=== PATIENT | female | born 1945 | race Caucasian/White ===

== ENCOUNTER → 2016-12-11 | Outpatient (CLI) | payer MEDICARE, MEDICAID ==
[~2016-12-11] MED LIST: ACETAMINOPHEN-H1 TA2 PO; ALBUTEROL-200 PUFFS/ IH; AMOXICOT500 MG PO; AUGMENTIN 875-1 EACH PO; BACTRIM DS 8001 TAB PO; CELEXA20 MG PO; CELEXA40 MG PO; DIAZEPAM10 M1 PO; DOXYCYCLINE HY100 M4 PO; FISH OIL1000 MG PO; HEALTH CARE AM600 MG PO; HYDROCODONE-APA1 TA1 PO; MEDROL 4MG. DOSE4 MG PO; PHENERGAN 25MG.25 M1 PO; PRILOSEC20 M1 PO; PROZAC40 M1 PO; RESTORIL 30MG C30 MG PO; ROBITUSSIN NIG118 ML PO; SYNTHROID 0.0.125 MG PO; TESSALON PERLE100 M1 PO; VALIUM 5MG TABLE5 MG PO; VICODIN 5/500 T1 TAB PO; ZOFRAN 8MG TABLE8 MG PO; ZOFRAN ODT4 MG PO
--- NOTE | 2016-12-18 09:46 | RADIOLOGY REPORT PS360 ---
DIG MAMM-DX UNI LT W/AVS W/CAD, US BREAST-LT COMPLETE W/AXILLA COMPARISON: 05/09/2016 mammogram, 1116 ultrasound INDICATION: Follow-up abnormal mammogram and ultrasound ORDERING PHYSICIAN: Leigh Ann Young MD PATIENT AGE: 71 years TECHNIQUE: Standard images performed spot compression views and left breast ultrasound FINDINGS: Mostly fatty replaced fibroglandular tissue. Benign-appearing nodular densities are present in the outer left breast unchanged. Postsurgical changes noted involving the medial aspect of the left breast inferiorly with a clip from the previous biopsy in this region. There is some increased density in this area consistent with scarring. No malignant appearing mass or malignant. Microcalcification is evident. Left breast ultrasound: There is a persistent 10 x 8 mm hyperechoic subcutaneous area in the left breast at 9:00 corresponding to the palpable abnormality and corresponding to the previously noted lesion. Previously the lesion measured 14 x 9 mm and contain a central area of decreased echogenicity. The decreased echogenicity is no longer apparent. There were benign findings noted on the pathology on the previous biopsy. IMPRESSION: Benign findings, no evidence of malignancy BI-RADS CATEGORY: 2_Benign RECOMMENDED FOLLOWUP: Routine screening mammogram. If the palpable nodule becomes more apparent then, further follow-up will be needed (A letter has been sent to the patient regarding results of the study.)
== END ==
LOC: RAD 15:03
DX: R92.8 Other abnormal and inconclusive findings on diagnostic imaging of breast (principal)
CPT/HCPCS: G0206-LT

== ENCOUNTER 2017-06-12 08:43 | Inpatient (IN) | payer MEDICARE, MEDICAID ==
[~2017-06-12] VITALS: Ht 152.4 cm; Wt 67.7 kg
[2017-06-12] VITALS (13 sets, daily range): BP systolic 111–144; BP diastolic 46–83
--- NOTE | 2017-06-12 09:29 | Emergency Room Report ---
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 N Clinical Suspician of Infection? N Mental Status: 1 - Regular (Normal Baseline) Sepsis Risk:Low Sepsis Risk Have you (or family members/close friends) recently traveled outside the [place]? N If Yes, where/when: Have you had exposure to infectious disease within the past month? N TB? Other? Specify: 71 years old white female status post appendectomy. She developed sudden onset abdominal pain at 7 PM last night followed by vomiting multiple times and arrived to the ED this morning. She continues to complain of pain and vomiting without diarrhea. She has no chest pain she has no palpitation no shortness of air. The vomitus is food. Source patient, RN notes reviewed, family Exam Limitations no limitations ALLERGIES Coded Allergies: No Known Allergies (12/19/15) Home Medications Active Scripts Albuterol (Albuterol-Hfa Inhaler) 2 PUFF IH QID #1 INH Prov: 10/31/16 Dextromethorphan Hb/Doxylamine (Robitussin Nighttime Cough Dm) 5 ML PO Q4H #240 ML Prov: 10/31/16 Benzonatate (Tessalon Perle) 100 MG PO TID #15 SGL Prov: 01/16/16 Reported Medications Levothyroxine Sodium (Synthroid 0.125MG) 0.1 MG PO DAILY Temazepam (Restoril 30MG) 30 MG PO QHS Fluoxetine HCl (Prozac) 40 MG PO DAILY Diazepam 10 MG PO TIDP PRN ANXIETY History Medical History General CAD? No Angina: No HI: No Hypertension? Yes Hyperlipidemia? Yes CHF? No DVT? No PE? No COPD? No Asthma? No Anemia? No GERD? No Gastric ulcers? No GI Bleed? No Hernia? No Thyroid Problems? Yes Hypothyroidism? Yes CVA? No Seizures? No Diabetes? No Renal Insuffiency? No End Stage Renal Disease? No UTI? No Stones? No BPH? No GB Disease: No Nephritic Syndrome? No Asplenia? No Hepatitis? No Sickle Cell Disease? No Arthritis? No Migraines? No Cataracts? No Glaucoma? No MRSA? No HIV? No TB? No Anxiety? Yes Depression? Yes Cancer? No Immunization Hx DT/Tetanus > 10 YRS Surgical Hx Previous Surgery?Y Tubal Ligation Appendix Social History Smoking Hx Smoker: Never Smoker Tobacco: No Alcohol Alcohol: No Review of Systems All Other Systems Reviewed and Negative Constitutional no symptoms reported Eyes no symptoms reported ENT no symptoms reported. Respiratory no symptoms reported Cardiovascular no symptoms reported Gastrointestinal see HPI, abdominal pain, vomiting Genitourinary no symptoms reported. Musculoskeletal no symptoms reported Skin no symptoms reported Psychiatric/Neurological no symptoms reported Physical Exam Vital Signs Vital Signs Date Time Temp Pulse Resp B/P Pulse O2 O2 Flow FiO2 Ox Delivery Rate 06/12 1053 97.6 120 18 177/56 99 06/12 0932 97.6 120 18 177/56 99 06/12 0905 97.6 120 18 144/83 99 - WBC >12,000 or <4,000 or 10% bands? 2 or more SIRS Criteria Met? B/P:144/83 MAP:103 Creatinine >2.0? UA output<0.5ml/kg/hr for 2 hrs? Platelet count >100,000? Lactate >2.0mmol/1? INR >1.2 or PTT > than 60 sec? Evidence of Organ Dysfunction? Provider documented clinical suspician of infection? N Sepsis Criteria Count: 1 Sepsis Risk: Low Sepsis Risk General Appearance normal appearance, WD/WN Eye Exam - bilateral eye normal exam, bilateral eye PERRL, bilateral eye EOMI Ear, Nose, Throat hearing grossly normal, normal ENT inspection Neck normal inspection, non-tender, supple, full range of motion Respiratory Status Yes: trachea midline, chest symmetrical, non tender chest. No: respiratory distress. Lung Sounds bilateral: normal breath sounds, lungs clear. Cardiovascular normal exam, regular rate/rhythm, no peripheral edema, no gallop, no JVD, no murmur, no rub, normal peripheral pulses Gastrointestinal soft, no guarding, no rebound, tenderness, soft obese diffusely tender abdomen with hyperactive bowel sounds. No organomegaly no pulsating mass. Good bilateral femoral pulses. No guarding no rigidity, no cross or rebound tenderness. 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 No Results/Orders Laboratory Tests 06/12/1730: Magnesium 1.8 06/12/1730: Sodium 141, Potassium 3.5, Chloride 100, Carbon Dioxide 29, BUN 17, Creatinine 1.0, Estimated Creat Clear 49 L, Estimated GFR (MDRD) 55 L, Glucose 248 H, Calcium 10.5 H, Total Bilirubin 0.4, AST 25, ALT 36, Alkaline Phosphatase 98, Total Protein 8.5 H, Albumin 4.4, Globulin 4.1 H, Albumin/Globulin Ratio 1.1, Amylase 30, Lipase 137, WBC 19.4 H, RBC 5.09, Hgb 16.1, Hct 47.3 H, MCV 92.8, RDW 12.2, Plt Count 431 H, MPV 7.4, Gran % 85.2 H, Gran # 16.6 H, Total Counted 100, Lymphocytes % 11.0, Monocytes % 2.6, Eosinophils % 0.9, Basophils % 0.3, Neutrophils 79 H, Band Neutrophils 3, Lymphocytes (Manual) 11, Lymphocytes # 2.1, Monocytes (Manual) 4, Monocytes # 0.5, Eosinophils # 0.2, Basophils # 0.1 , Metamyelocytes 1, Atypical Lymphocytes 2, Platelet Estimate NORMAL, PUBS MCHC 33.8, MCH 31.4 H Current Medication Orders Sig/Brunilda Start time Last Medication Dose Route Stop Time Status Admin Ertapenem 1 GM ONCE ONE 06/12 1115 AC Sodium Chloride 50 ML IV 06/12 1144 Ondansetron HCl 4 MG ONCE ONE 06/12 1045 DC 06/12 IV 06/12 1046 1000 Ondansetron HCl 0 .STK-MED ONE 06/12 917 DC .ROUTE Sodium Chloride 1,000 ML .STK-MED ONE 06/12 917 DC IV Ondansetron HCl 4 MG 06/12 915 CAN IV Sodium Chloride 10 ML PRN PRN 06/12 915 AC IV 06/13 912 Orders Procedure Date/time Status DIET-NOTHING BY MOUTH 06/12 L Active URINALYSIS/COMPLETE 06/12 1106 Active CULTURE, BLOOD 06/12 1103 Active LACTIC ACID 06/12 1103 Active DIFFERENTIAL-WBC 06/[address] ABD/PELVIS REQ 06/12 0927 Complete MAGNESIUM 06/12 0914 Complete IV SALINE LOCK 06/12 912 Active LIPASE 06/12 09 Complete CBC WITH AUTO DIFF 06/12 912 Complete CHEM 12 PROFILE 06/12 912 Complete AMYLASE 06/12 912 Complete Departure Departure Time of Disposition 1107 Disposition Still a Patient Clinical Impression Primary Impression: Small bowel obstruction Secondary Impressions: Leucocytosis Condition STABLE Referrals FRANK CROOKS,QASIM Voss Additional Instructions I discussed with the patient her findings of small bowel obstruction and need for admission, she was agreeable. is at work. I called and discussed with Dr. Middleton production miner surgeon who agreed to admit. He requested urinalysis and a nasogastric tube to be placed. The patient will be admitted under Dr. Middleton with medical consultation if needed. The patient was admitted in a stable condition. Discharge Counseling Counseled pt/family regarding diagnosis, test results, medications/RX, follow up needs ED Critical Care Critical Care No If Critical Care minutes are documented, the time involved in the performance of seperately reportable procedures was not counted toward critical care time documented. I directly delivered medical care to this critically ill and/or injured patient. Timely evaluation and treatment was necessary to address the significant organ system(s) dysfunction present in this patient. at 1104
[2017-06-12 09:40] LABS: LYMPH # 2.1 K/mm3 (0.7-4.5)
[2017-06-12 09:45] LABS: HEMOGLOBIN 16.1 g/dL (12.2-16.2)
[2017-06-12 10:03] LABS: NEUTROPHILS 79 % (42-76)
--- NOTE | 2017-06-12 10:42 | RADIOLOGY REPORT PS360 ---
CT ABD PELVIS W/O CONTRAST CLINICAL INDICATION: Nausea and vomiting with abdominal pain ABDOMINAL PAIN ORDERING PHYSICIAN: Brandon Santo MD PATIENT AGE: 71 years COMPARISON: None TECHNIQUE: Axial images obtained with sagittal and coronal reformats. PROCEDURE: Oral Contrast: None IV Contrast: None . FINDINGS: Lung bases are clear. There is a small hiatal hernia. The liver, gallbladder, spleen, adrenal glands, pancreas, kidneys, ureters, and urinary bladder have an unremarkable appearance. Mildly distended small bowel loops are present with air-fluid levels. The terminal ileum is not distended. Small bowel feces sign is present consistent delayed transit. A definite point of obstruction is not identified however is felt to be within the the distal one third of the ileum within the right lower quadrant. No free air evident. No evidence of appendicitis or diverticulitis. No pelvic mass. No acute bony anomalies. IMPRESSION: Small bowel obstruction. Transition point is not identified but may be in the distal one third of the ileum in the right lower quadrant.
--- NOTE | 2017-06-12 13:14 | HISTORY AND PHYSICAL REPORT ---
See Addendum History of Present Illness Chief Complaint: Abdominal pain and nausea History of Present Illness: This is a 71-year-old female who presented emergency department after developing severe abdominal pain at approximately 7 PM yesterday evening. Subsequently, she developed nausea with intermittent emesis. She states that she had a "normal bowel movement" yesterday afternoon prior to the onset of pain. She is uncertain with regard to flatus. No hematemesis. No definitive melena, but she does state that her last bowel movement was "a bit dark". No bright red blood per rectum. No unexplained weight loss. A CT scan in the emergency department revealed signs consistent with a likely partial small bowel obstruction. She was found to have a leukocytosis and an initial elevation of her lactate. She is now on the floor after nasogastric decompression and states that she "feels quite a bit better". She states that she is "still in pain, but it is not like before". Past Medical History Reports: hypertension. Surgical History Previous Surgery?Y Tubal Ligation Appendix Allergies Coded Allergies: No Known Allergies (12/19/15) Medications: Active Scripts Albuterol (Albuterol-Hfa Inhaler) 2 PUFF IH QID #1 INH Prov: 10/31/16 Dextromethorphan Hb/Doxylamine (Robitussin Nighttime Cough Dm) 5 ML PO Q4H #240 ML Prov: 10/31/16 Benzonatate (Tessalon Perle) 100 MG PO TID #15 SGL Prov: 01/16/16 Reported Medications Levothyroxine Sodium (Synthroid 0.125MG) 0.1 MG PO DAILY Temazepam (Restoril 30MG) 30 MG PO QHS Fluoxetine HCl (Prozac) 40 MG PO DAILY Diazepam 10 MG PO TIDP PRN ANXIETY Additional medical history: Hypothyroidism Family history Postive for: HTN. Smoking Hx Tobacco: No Smoker: Never Smoker Type: N/A Packs/day: N/A Are you/the child exposed to second-hand smoke: No Alcohol Alcohol: No Hx of Drug Use Drug Use? No Review of Systems Constitutional No: chills. Skin No: contusions, swelling. Immune/allergy No: anaphalaxis. Eyes No: discharge. ENT No: nose bleed. Respiratory No: pneumonia. Cardiovascular No: palpitations. GI Positive for: nausea, vomitting. No: dysphagia, hematemeis, hematochezia, rectal pain. (female) No: hematuria. Musculoskeletal No: myalgias. Heme No: petechia. Endocrine No: polydipsia. Neurological No: confusion. Psychiatric No: anxious. Physical Exam VS/I&O Vital Signs Date Time Temp Pulse Resp B/P Pulse O2 O2 Flow FiO2 Ox Delivery Rate 06/12 1144 97.6 86 18 161/73 99 06/12 1139 97.6 86 18 161/73 99 06/12 1134 18 06/12 1053 97.6 120 18 177/56 99 06/12 0932 97.6 120 18 177/56 99 06/12 0905 97.6 120 18 144/83 99 Exam General appearance no acute distress, alert, oriented Neck full ROM Respiratory no distress Cardiovascular regular rate and rhythm Abdomen no guarding, soft (mild to mod TTP throughout) Extremities moves all, no evidence of DVT, no clubbing Musculoskeletal full ROM Neurological CNII-XIII grossly intact, normal speech Psychiatric normal mood Skin no gross abnormalities Findings/Data CT scan reveals [id number] dilatation of small bowel with some distal decompression. Definitive transition not visualized. Dx/assessment/plan Problem List 1. Small bowel obstruction 2. Leucocytosis Code status: full code Discussed with: patient Plan: 1) nothing by mouth/IV fluids 2) repeat lactate as per protocol 3) repeat complete blood count 4) continue nasogastric decompression 5) young catheter with UA 6) small bowel follow-through 7) serial abdominal exams at 1314
[2017-06-12] MEDS ORDERED: TESSALON PERLE100 M1 PO (13:39)
[2017-06-12 13:50] LABS: URINE BILIRUBIN - DIPSTICK NEGATIVE (NEG); URINE BLOOD NEGATIVE (NEG)
[2017-06-12 14:03] LABS: URINE SQUAMOUS CELLS OCC #/hpf (0-5)
[2017-06-12 15:45] LABS: HEMOGLOBIN 15.5 g/dL (12.2-16.2); LYMPH # 1.3 K/mm3 (0.7-4.5); LYMPH % 5.6 % (10-50.0)
--- NOTE | 2017-06-12 19:16 | RADIOLOGY REPORT PS360 ---
SMALL BOWEL SERIES CLINICAL INDICATION: Small bowel obstruction SBO ORDERING PHYSICIAN: QASIM MARIE MD PATIENT AGE: 71 years COMPARISON: CT scan of the same day FINDINGS: Work Order Clerk exam shows mildly distended small bowel loops. Patient was given 2 cups of barium through the nasogastric tube is study is carried out to 1 hour and 45 minutes. During this time there was only mild filling of the proximal small bowel is slightly distended. There was a small hiatal hernia and mild amount GE reflux. Study was then discontinued as the patient's condition was deteriorating and was taken to surgery. IMPRESSION: Incomplete small bowel follow-through showing mild distention of the small bowel.
--- NOTE | 2017-06-12 19:35 | Operative Note ---
Surgeon/Diagnoses Surgeon/Supervisor [employer](s) Date of procedure: 06/12/17 Surgeon: MD Maxi Middleton Supervisor [employer](s): Dr. Escudero Diagnoses Pre-op diagnosis: Small bowel obstruction Leukocytosis Lactic acidosis Post-op diagnosis Same as preoperative diagnoses Procedure Procedure Procedure: Exploratory laparotomy with extensive lysis of adhesions and distal small bowel resection Indications: ANGELLA TELLEZ is a 71 year-old Female with a history of abdominal pain with nausea and vomiting. She had radiographic evidence of at least a partial small bowel obstruction. She initially improved with nasogastric decompression. Follow-up laboratory evaluation revealed worsening leukocytosis and worsening lactic acidosis. Repeat abdominal exam revealed increased pain and the decision was made to proceed emergently to the operating room for exploration. Findings: No sign of ischemia Dense adhesions throughout the small bowel with obvious distal obstruction Mesenteric defect after complex adhesio lysis requiring resection of 12cm of distal small bowel Procedure Description: After informed consent was obtained, the patient was taken to the operating room and placed in the supine position. General anesthesia was induced and her abdomen was prepped and draped in a sterile fashion. A midline laparotomy incision was made. The abdomen was entered. Combination of blunt dissection and sharp dissection was utilized to free multiple dense adhesions along the anterior abdominal wall. No sign of obvious ischemia was noted as the small bowel was carefully evaluated. Significant and dense adhesions throughout the abdominal cavity were noted. The adhesions were worse along the mid and distal small bowel. An obvious obstruction distally was noted. Inspissated food particles contributed to the obstruction. Once the mesial lysis was completed, a mesenteric rent along the distal small bowel was noted. Decision was made to resect this portion of small bowel. A window was made in the mesentery utilizing a Windy clamp. A REAGAN stapler was utilized to transect both proximally and distally. The intervening mesentery was taken down in a clamp/cut/tie method utilizing Vicryl ligation. The 2 ends of small bowel were then brought into side -to-side apposition and a REAGAN stapler was utilized to create a common otomy. The common otomy was closed with a TA stapler and imbrication with 3-0 Nurolon was completed. The mesenteric defect was reapproximated with running Vicryl suture. The abdominal cavity was thoroughly irrigated. No active bleeding or sign of injury was noted. Fascia was reapproximated with number 2 Novofil in a sterile dressing was applied after the skin was stapled. Anesthetic agents were reversed and she was extubated prior to transfer to recovery. EBL (ml): 250 Anesthesia: GETA Complications: No immediate Specimens: Distal small bowel Disposition Disposition: Stable to recovery from where she will be transferred back to the floor. at 1934
--- NOTE | 2017-06-12 19:44 | Anesthesia Record ---
Anesthesia Record Part I Total IV fluids: 3500 EBL (ml): 250 Urine Output: 100 B/P: 117/65 % SaO2: 99 Pulse: 83 Resps: 16 Temp: 97.7 Patient is: Drowsy, Nasal O2, Stable Stable to PACU at: 1930 at 1944
--- NOTE | 2017-06-12 19:45 | Anesthesia Record ---
Anesthesia Record Part II Discharge time: 1999 Destination: Second Floor PACU nurse assessment review? Yes Patient is: Stable Anesthesia complications? No at 1945
[2017-06-12 20:53] LABS: ABO BLOOD TYPE O; RH BLOOD TYPE POSITIVE
[2017-06-12 20:54] LABS: ANTIHUMAN GLOB CROSSMATCH COMPAT
[2017-06-12 20:55] LABS: ANTIHUMAN GLOB CROSSMATCH COMPAT
[2017-06-12 21:22] LABS: HEMOGLOBIN 13.2 g/dL (12.2-16.2)
[2017-06-13] VITALS (14 sets, daily range): BP systolic 104–141; BP diastolic 59–98
--- NOTE | 2017-06-13 07:16 | POST-OP PROGRESS NOTE ---
Post Op Subjective Data Patient is post-op day 1 Subjective data: The patient states that she is "sore from surgery". She states that she "still feels better than when (she) came in". Post op objective data Vitals,I&O,and Labs: Vital signs, intake and output,and available lab data for the last 24 hours is as noted below. Vital Signs Date Time Temp Pulse Resp B/P Pulse O2 O2 Flow FiO2 Ox Delivery Rate 06/13 0440 98.8 120 18 108/68 9 1 06/13 0240 97.4 100 18 124/74 96 1 06/13 0140 97.5 109 18 121/79 95 1 06/13 0040 97.5 105 16 141/78 97 1 06/12 2340 97.6 86 16 135/75 97 1.5 06/12 2240 98.1 91 20 129/69 100 1.5 06/12 2210 98.0 101 16 126/64 98 1.5 06/12 2140 97.3 82 20 129/67 98 2. 06/120 97.2 77 18 130/57 98 2 06/12 2055 97.5 77 16 121/51 98 2 06/128 24 06/120 97.5 65 16 111/66 99 2 06/123 123 24 127/97 97 06/12 2025 97.8 66 14 120/46 99 2 06/12 2022 96.8 70 16 128/53 100 2 06/12 2020 97.2 06/12 2010 96.8 69 16 128/53 99 2 06/12 2005 97.2 66 16 135/64 99 OXYGEN 06/12 2000 73 16 130/59 98 OXYGEN 06/12 1955 16 06/12 1950 76 16 125/77 97 OXYGEN 06/12 1944 97.7 83 117/65 99 14 1940 82 16 119/65 99 OXYGEN 06/12 1930 97.7 83 16 117/65 99 OXYGEN 06/12 1334 97.6 101 16 118/74 98 ROOM AIR 06/12 1315 86 06/12 1315 97.6 101 18 118/74 06/12 1315 99 ROOM AIR 06/12 1144 97.6 86 18 161/73 99 06/12 1139 97.6 86 18 161/73 99 06/12 1134 18 06/12 1053 97.6 120 18 177/56 99 06/12 0932 97.6 120 18 177/56 99 06/12 0905 97.6 120 18 144/83 99 06/12 1500 06/12 2300 06/13 0700 Intake Total 0 100 0 Output Total 400 225 Balance -400 -125 0 Intake, IV 100 Intake, Oral 0 0 Intake, Tube 0 0 Irrigant Output, 0 Emesis Output, 0 Estimated Blood Loss Output, Other 25 Output, Urine 400 200 Patient 62.256 kg 62.256 kg Weight Laboratory Tests Test Result Date Time Chemistry Sodium (mmoL/L) 141 06/12 0930 Potassium (mmoL/L) 3.5 06/12 0930 Chloride (mmoL/L) 100 06/12 0930 Carbon Dioxide (mmoL/L) 29 06/12 0930 BUN (mg/dL) 17 06/12 0930 Creatinine (mg/dL) 1.0 06/12 930 Estimated Creat Clear (ML/MIN) 49 06/12 09 Estimated GFR (MDRD) (ML/MIN) 55 06/12 0930 Glucose (mg/dL) 248 06/12 0930 Lactic Acid (MMOL/L) 4.8 06/12 1538 Calcium (mg/dL) 10.5 06/12 0930 Magnesium (mg/dL) 1.8 06/12 0930 Total Bilirubin (mg/dL) 0.4 06/12 0930 AST (U/L) 25 06/12 0930 ALT (U/L) 36 06/12 0930 Alkaline Phosphatase (U/L) 98 06/12 0930 Total Protein (gm/dL) 8.5 06/12 0930 Albumin (gm/dL) 4.4 06/12 0930 Globulin (gm/dL) 4.1 06/12 0930 Albumin/Globulin Ratio 1.1 06/12 0930 Amylase (U/L) 30 06/12 0930 Lipase (U/L) 137 06/12 0930 Hematology WBC (K/MM3) 23.7 06/12 153 RBC (M/mm3) 5.01 06/12 153 Hgb (g/dL) 13.2 06/12 2055 Hct (%) 39.8 06/12 2055 MCV (fl) 93.5 06/12 1538 RDW (%) 12.4 06/12 1538 Plt Count (K/mm3) 381 06/12 153 MPV (fl) 7.0 06/12 1538 Gran % (%) 88.7 06/12 1538 Gran # (K/mm3) 21.0 06/12 1538 Total Counted (#CELLS) 100 06/12 0930 Lymphocytes % (%) 5.6 06/12 1538 Monocytes % (%) 5.2 06/12 1538 Eosinophils % (%) 0.3 06/12 1538 Basophils % (%) 0.3 06/12 1538 Neutrophils (%) 79 06/12 0930 Band Neutrophils (%) 3 06/12 0930 Lymphocytes (Manual) (%) 11 06/12 0930 Lymphocytes # (K/mm3) 1.3 06/12 1538 Monocytes (Manual) (%) 4 06/12 0930 Monocytes # (K/mm3) 1.2 06/12 1538 Eosinophils # (K/mm3) 0.1 06/12 1538 Basophils # (K/MM3) 0.1 06/12 1538 Metamyelocytes (%) 1 06/12 0930 Atypical Lymphocytes (%) 2 06/12 0930 Platelet Estimate NORMAL 06/12 930 PUBS MCHC (g/dl) 33.1 06/12 1538 Immunology Antibody Screen NEGATIVE 06/12 1825 MCH (pg) 30.9 06/12 1538 Miscellaneous Miscellaneous Test POSITIVE 06/12 1825 Urines Urine Color YELLOW 06/12 1330 Urine Appearance CLOUDY 06/12 1330 Urine pH 7.0 06/12 1330 Ur Specific [place] 1.020 06/12 1330 Urine Protein (mg/dL) 1+ 06/12 1330 Urine Ketones (mg/dL) 1+ 06/12 1330 Urine Blood NEGATIVE 06/12 1330 Urine Nitrate NEGATIVE 06/12 1330 Urine Bilirubin NEGATIVE 06/12 1330 Urine Urobilinogen (E.U./dL) 1.0 06/12 1330 Ur Leukocyte Esterase NEGATIVE 06/12 1330 Urine RBC (rbc/hpf) NONE 06/12 1330 Urine WBC (wbc/hpf) OCC 06/12 1330 Ur Squamous Epith Cells (#/hpf) OCC 06/12 1330 Amorphous Sediment 2+ 06/12 1330 Urine Bacteria 2+ 06/12 1330 Urine Mucus 2+ 06/12 1330 Urine Glucose NEGATIVE 06/12 1330 Physical Exam VS/I&O Vital Signs Date Time Temp Pulse Resp B/P Pulse O2 O2 Flow FiO2 Ox Delivery Rate 06/13 0440 98.8 120 18 108/68 9 1 06/13 0240 97.4 100 18 124/74 96 1 06/13 0140 97.5 109 18 121/79 95 1 06/13 0040 97.5 105 16 141/78 97 1 06/12 2340 97.6 86 16 135/75 97 1.5 06/12 2240 98.1 91 20 129/69 100 1.5 06/12 2210 98.0 101 16 126/64 98 1.5 06/12 2140 97.3 82 20 129/67 98 2. 06/120 97.2 77 18 130/57 98 2 06/12 2055 97.5 77 16 121/51 98 2 06/128 24 06/12 2040 97.5 65 16 111/66 99 2 06/12 2033 123 24 127/97 97 06/12 2025 97.8 66 14 120/46 99 2 06/12 2022 96.8 70 16 128/53 100 2 06/12 2020 97.2 06/12 2010 96.8 69 16 128/53 99 2 06/12 2005 97.2 66 16 135/64 99 OXYGEN 06/12 2000 73 16 130/59 98 OXYGEN 06/12 1955 16 06/12 1950 76 16 125/77 97 OXYGEN 06/12 1944 97.7 83 117/65 99 06/12 1940 82 16 119/65 99 OXYGEN 06/12 1930 97.7 83 16 117/65 99 OXYGEN 06/12 1334 97.6 101 16 118/74 98 ROOM AIR 06/12 1315 86 06/12 1315 97.6 101 18 118/74 06/12 1315 99 ROOM AIR 06/12 1144 97.6 86 18 161/73 99 06/12 1139 97.6 86 18 161/73 99 06/12 1134 18 06/12 1053 97.6 120 18 177/56 99 06/12 0932 97.6 120 18 177/56 99 06/12 0905 97.6 120 18 144/83 99 I&O 06/13 0700 Intake Total 100 Output Total 625 Balance -525 Intake, IV 100 Intake, Oral 0 Intake, Tube 0 Irrigant Output, 0 Emesis Output, 0 Estimated Blood Loss Output, Other 25 Output, Urine 600 Patient 62.256 kg Weight Exam General appearance no acute distress Respiratory no distress Cardiovascular tachycardia Abdomen soft (dressing intact) Post op patient plan Diagnoses: SBO - stable s/p CHRISTY and SB resection Leukocytosis Lactic acidosis Plan: Ambulate, follow-up a.m. labs This inpt stay is expected to cross 2 MNs from start of care Yes Additional data: The patient's antibiotics will be continued for now and this will likely go beyond the 24-hour postoperative period secondary to her initial significant leukocytosis. The patient's Villalp[place] catheter will be maintained secondary to need for extremely accurate and timely output measurements. at 0715
--- NOTE | 2017-06-13 07:30 | PHARMACY CLINIC NOTE ---
Patient Demographics Patient Demographics Admission date: 06/12/17 Date: 06/13/17 Time: 07 Allergies Coded Allergies: No Known Allergies (06/12/17) HEIGHT- FT: 5 IN: 0.00 K.256 VTE General Information Labs: Laboratory Tests 06/12 06/12 06/12 2055 1538 0930 Hematology Hgb (12.2 - 16.2 g/dL) 13.2 15.5 16.1 Hct (37.0 - 47.0 %) 39.8 46.9 47.3 H Plt Count (142 - 424 K/mm3) 381 431 H Disclaimer The following section includes nursing documentation that has been pulled in for pharmacy review. Patient's VTE score: 1 Patient's VTE Risk: VERY LOW RISK Clinical trial participant? No VTE prophylaxis NQF [id number] VTE prophylaxis ordered? Yes Type of prophylaxis/treatment: Heparin (post-op), ICD at 0730
[2017-06-13 07:53] LABS: HEMOGLOBIN 13.3 g/dL (12.2-16.2); LYMPH # 1.9 K/mm3 (0.7-4.5); LYMPH % 11.1 % (10-50.0)
[2017-06-13] MEDS ORDERED: VENLAFAXINE H37.5 M2 PO (08:06)
[2017-06-13 09:27] LABS: BILIRUBIN, INDIRECT 0.31 mg/dL (0-0.9)
[2017-06-13 14:22] LABS: HEMOGLOBIN 12.1 g/dL (12.2-16.2)
[2017-06-13 14:23] LABS: LYMPH # 2.7 K/mm3 (0.7-4.5); LYMPH % 16.1 % (10-50.0)
[2017-06-13 15:08] LABS: NEUTROPHILS 79 % (42-76)
[2017-06-14] VITALS (20 sets, daily range): BP systolic 109–155; BP diastolic 51–79
--- NOTE | 2017-06-14 07:40 | POST-OP PROGRESS NOTE ---
Post Op Subjective Data Patient is post-op day 2 Subjective data: Feels "a bit better". Still "pretty sore". Ambulated some yesterday. Post op objective data Vitals,I&O,and Labs: Vital signs, intake and output,and available lab data for the last 24 hours is as noted below. Vital Signs Date Time Temp Pulse Resp B/P Pulse O2 O2 Flow FiO2 Ox Delivery Rate 06/14 0640 1 06/14 0600 1 06/14 0600 99.0 98 20 109/61 96 OXYGEN 1 06/14 0513 1 06/14 0400 1 06/14 0400 98.8 102 18 120/62 94 OXYGEN 1 06/14 0309 1 06/14 0215 100.4 105 20 123/51 96 1 06/14 0203 1 06/14 0203 100.4 105 20 123/51 96 OXYGEN 1 06/14 0110 1 06/14 0010 98.3 107 18 127/67 95 1 06/14 0006 1 06/14 0006 98.3 107 18 127/67 95 OXYGEN 1 06/13 2301 1 06/13 2200 100.5 108 20 118/68 96 1 06/13 2158 1 06/13 2158 100.5 108 20 118/68 96 OXYGEN 1 06/13 2115 1 06/13 2000 101.1 106 18 120/98 96 1 06/13 1945 101.1 106 18 120/98 96 1 06/13 1944 96 1 06/13 1941 101.1 106 18 120/98 96 OXYGEN 1 06/13 1837 100.1 116 18 108/59 95 OXYGEN 06/13 1630 99.4 120 18 115/70 93 OXYGEN 06/13 1546 16 06/13 1430 98.7 116 20 104/65 94 OXYGEN 06/13 1200 97.8 119 16 138/75 95 OXYGEN 06/13 1030 97.9 122 16 112/76 96 OXYGEN 06/13 0845 97.8 119 16 138/75 95 06/13 0830 99.0 120 16 113/72 95 OXYGEN / 1500 06/13 2300 06/14 0700 Intake Total 1240 2960 Output Total 850 650 Balance 390 2310 Intake, IV 1240 2960 Output, Other 250 Output, Urine 600 650 Laboratory Tests Test Result Date Time Chemistry Sodium (mmoL/L) 140 06/13 0605 Potassium (mmoL/L) 3.8 06/13 06 Chloride (mmoL/L) 106 06/13 0605 Carbon Dioxide (mmoL/L) 26 06/13 06 BUN (mg/dL) 17 06/13 06 Creatinine (mg/dL) 0.7 06/13 06 Estimated Creat Clear (ML/MIN) 73 09 06 Estimated GFR (MDRD) (ML/MIN) 83 06/13 06 Glucose (mg/dL) 164 06/13 605 Lactic Acid (MMOL/L) 2.8 06/13 1012 Calcium (mg/dL) 8.3 06/13 06 Magnesium (mg/dL) 1.8 06/12 09 Total Bilirubin (mg/dL) 0.4 06/13 06 Direct Bilirubin (mg/dL) 0.09 06/13 06 Indirect Bilirubin (mg/dL) 0.31 06/13 06 AST (U/L) 21 06/13 06 ALT (U/L) 24 06/13 06 Alkaline Phosphatase (U/L) 58 06/13 06 Total Protein (gm/dL) 5.4 06/13 06 Albumin (gm/dL) 2.7 06/13 06 Globulin (gm/dL) 4.1 06/12 09 Albumin/Globulin Ratio 1.1 06/12 09 Amylase (U/L) 30 06/12 0930 Lipase (U/L) 137 06/12 0930 Hematology WBC (K/mm3) 16.9 06/13 1400 RBC (M/mm3) 3.94 06/13 1400 Hgb (g/dL) 12.1 06/13 1400 Hct (%) 37.1 06/13 1400 MCV (fL) 94.2 06/13 1400 RDW (%) 13.7 06/13 1400 Plt Count (K/mm3) 232 06/13 1400 MPV (fl) 8.8 06/13 0605 Gran % (%) 80.4 06/13 1400 Gran # (K/mm3) 13.6 06/13 1400 Total Counted (#CELLS) 100 09/ 1400 Lymphocytes % (%) 16.1 06/13 1400 Monocytes % (%) 3.5 06/13 1400 Eosinophils % (%) 0.1 06/13 0605 Basophils % (%) 0.4 06/13 0605 Neutrophils (%) 79 06/13 1400 Band Neutrophils (%) 2 06/13 1400 Lymphocytes (Manual) (%) 14 06/13 1400 Lymphocytes # (K/mm3) 2.7 06/13 1400 Monocytes (Manual) (%) 5 06/13 1400 Monocytes # (K/mm3) 0.6 06/13 1400 Eosinophils # (K/mm3) 0.0 06/13 0605 Basophils # (K/MM3) 0.1 06/13 0605 Metamyelocytes (%) 1 06/12 0930 RBC/WBC/PLT Morphology NORMAL 06/13 1400 Atypical Lymphocytes (%) 2 06/12 0930 Platelet Estimate NORMAL 06/13 1400 PUBS MCHC (g/dl) 30.7 06/13 1400 Immunology Antibody Screen NEGATIVE 06/12 1825 MCH (pg) 30.7 06/13 1400 Miscellaneous Miscellaneous Test POSITIVE 06/12 1825 Urines Urine Color YELLOW 06/12 1330 Urine Appearance CLOUDY 06/12 1330 Urine pH 7.0 06/12 1330 Ur Specific [place] 1.020 06/12 1330 Urine Protein (mg/dL) 1+ 06/12 1330 Urine Ketones (mg/dL) 1+ 06/12 1330 Urine Blood NEGATIVE 06/12 1330 Urine Nitrate NEGATIVE 06/12 1330 Urine Bilirubin NEGATIVE 06/12 1330 Urine Urobilinogen (E.U./dL) 1.0 06/12 1330 Ur Leukocyte Esterase NEGATIVE 06/12 1330 Urine RBC (rbc/hpf) NONE 06/12 1330 Urine WBC (wbc/hpf) OCC 06/12 1330 Ur Squamous Epith Cells (#/hpf) OCC 06/12 1330 Amorphous Sediment 2+ 06/12 1330 Urine Bacteria 2+ 06/12 1330 Urine Mucus 2+ 06/12 1330 Urine Glucose NEGATIVE 06/12 1330 Additional data: AM films show very little movement through SB Physical Exam VS/I&O Vital Signs Date Time Temp Pulse Resp B/P Pulse O2 O2 Flow FiO2 Ox Delivery Rate 06/14 0640 1 06/14 0600 1 06/14 0600 99.0 98 20 109/61 96 OXYGEN 1 06/14 0513 1 06/14 0400 1 06/14 0400 98.8 102 18 120/62 94 OXYGEN 1 06/14 0309 1 06/14 0215 100.4 105 20 123/51 96 1 06/14 0203 1 06/14 0203 100.4 105 20 123/51 96 OXYGEN 1 06/14 0110 1 06/14 0010 98.3 107 18 127/67 95 1 06/14 0006 1 / 0006 98.3 107 18 127/67 95 OXYGEN 1 06/13 2301 1 06/13 2200 100.5 108 20 118/68 96 1 06/13 2158 1 06/13 2158 100.5 108 20 118/68 96 OXYGEN 1 06/135 1 06/13 2000 101.1 106 18 120/98 96 1 06/13 1945 101.1 106 18 120/98 96 1 06/13 1944 96 1 06/13 1941 101.1 106 18 120/98 96 OXYGEN 1 06/13 1837 100.1 116 18 108/59 95 OXYGEN 06/13 1630 99.4 120 18 115/70 93 OXYGEN 06/13 1546 16 06/13 1430 98.7 116 20 104/65 94 OXYGEN 06/13 1200 97.8 119 16 138/75 95 OXYGEN 06/13 1030 97.9 122 16 112/76 96 OXYGEN 06/13 0845 97.8 119 16 138/75 95 06/13 0830 99.0 120 16 113/72 95 OXYGEN I&O 06/14 0700 Intake Total 4200 Output Total 1500 Balance 2700 Intake, IV 4200 Output, Other 250 Output, Urine 1250 Exam General appearance no acute distress Respiratory no distress Cardiovascular regular rate and rhythm Abdomen soft Post op patient plan Diagnoses: post-op ileus hypokalemia leukocytosis - improving Plan: Ambulate, dc young, replace K+, wean O2 This inpt stay is expected to cross 2 MNs from start of care Yes Additional data: The patient's source of leukocytosis is most likely secondary to direct SB insult and transudative shift. She remains at increased risk of intra-abdominal abscess/peritonitis during the immediate postoperative period. As such, her antibiotics will be continued during the ensuing days. Antibiotic Stewardship (2) Current Culture Results Microbiology 06/12 1330 URINE CATH: Urine Culture - RES 06/12 1125 BLOOD: Anaerobic Blood Culture - RECD 06/12 112 BLOOD: Aerobic Blood Culture - RECD Infxn that will respond? Yes Right drug,dose,and route? Yes More targeted antbx? No How long atbx needed? 5 at 0809
[2017-06-14 07:48] LABS: LYMPH # 2.5 K/mm3 (0.7-4.5); LYMPH % 21.5 % (10-50.0)
[2017-06-14 08:13] LABS: HEMOGLOBIN 10.8 g/dL (12.2-16.2)
--- NOTE | 2017-06-14 14:50 | RADIOLOGY REPORT PS360 ---
CHEST(2 VIEWS-NOT PORTABLE) COMPARISON: PA and lateral chest 10/31/2016 HISTORY: 1 day postop abdominal exploratory laparotomy TECHNIQUE: PA and lateral chest FINDINGS: The support aspiration. There is discoid atelectasis left perihilar region and at the left base. The may be a small amount of pleural fluid the left costo phrenic angle. There is an NG tube descending the esophagus with contrast injected partially filling the stomach and proximal small bowel loops are visualized as well the lower edge of the [id number]. IMPRESSION: 1. Postoperative atelectasis left base 2. Slight interval decompression of mildly dilated small bowel loops seen on the radius small bowel study of 06/12/2017
--- NOTE | 2017-06-14 14:50 | RADIOLOGY REPORT PS360 ---
CHEST(2 VIEWS-NOT PORTABLE) COMPARISON: PA and lateral chest 10/31/2016 HISTORY: 1 day postop abdominal exploratory laparotomy TECHNIQUE: PA and lateral chest FINDINGS: The support aspiration. There is discoid atelectasis left perihilar region and at the left base. The may be a small amount of pleural fluid the left costo phrenic angle. There is an NG tube descending the esophagus with contrast injected partially filling the stomach and proximal small bowel loops are visualized as well the lower edge of the [id number]. IMPRESSION: 1. Postoperative atelectasis left base 2. Slight interval decompression of mildly dilated small bowel loops seen on the radius small bowel study of 06/12/2017
--- NOTE | 2017-06-14 14:53 | RADIOLOGY REPORT PS360 ---
ABDOMEN-FLAT UPRIGHT COMPARISON: Small bowel series 06/12/2017 HISTORY: Repeat small bowel series following surgery for lysis of adhesions TECHNIQUE: Portable upright and supine abdomen. FINDINGS: Contrast is seen opacifying the stomach duodenal bulb and duodenal sweep. The proximal jejunum is opacified with contrast and shows normal caliber small bowel multiple surgical dionne are seen in the midline of the abdomen. IMPRESSION: Apparent interval improvement in the caliber of the proximal small bowel loops when compared to the preoperative study of 06/12/2017
--- NOTE | 2017-06-14 14:59 | RADIOLOGY REPORT PS360 ---
ABDOMEN-FLAT UPRIGHT COMPARISON: Abdominal films 06/13/2017 HISTORY: Follow-up exploratory laparotomy TECHNIQUE: KUB and upright abdomen FINDINGS: There has been progression of contrast into the mid small bowel when compared to yesterday's films. Small bowel is normal in caliber though there does appear to be somewhat slow transit time of barium through this mid small bowel probably reflecting a mild ileus from the surgical intervention. IMPRESSION: Findings as described, suggest follow-up abdominal films 4 to 6 hours for continuing evaluation.
[2017-06-15] VITALS (19 sets, daily range): BP systolic 122–159; BP diastolic 59–81
--- NOTE | 2017-06-15 07:53 | POST-OP PROGRESS NOTE ---
Post Op Subjective Data Patient is post-op day 3 Subjective data: Feels "better" this AM. No nausea. No flatus. Post op objective data Vitals,I&O,and Labs: Vital signs, intake and output,and available lab data for the last 24 hours is as noted below. Vital Signs Date Time Temp Pulse Resp B/P Pulse O2 O2 Flow FiO2 Ox Delivery Rate 06/15 0551 98.2 102 18 159/69 93 OXYGEN 1 06/15 0425 98.7 96 18 126/59 94 OXYGEN 1 06/15 0200 98.2 107 18 127/76 94 06/15 0159 98.2 107 18 127/76 94 OXYGEN 1 06/15 0020 99.1 102 18 127/74 92 06/15 0012 99.1 102 18 127/74 92 OXYGEN 1 06/14 2200 98.8 102 18 136/67 90 06/14 2149 98.8 102 18 136/67 90 OXYGEN 1 06/14 2015 99.1 106 18 124/58 91 06/14 2000 99.1 106 18 124/58 91 06/14 1938 99.1 106 18 124/58 91 OXYGEN 1 06/14 1800 99.8 107 16 122/62 89 06/14 1625 100.4 115 16 132/70 93 OXYGEN 06/14 1600 100.4 115 16 132/70 93 06/14 1410 98.5 112 16 139/73 91 OXYGEN 06/14 1400 98.5 112 16 139/73 91 06/14 1205 100.0 123 18 146/79 89 OXYGEN 06/14 1159 100.0 113 16 146/79 89 06/14 1000 99.0 116 16 155/71 90 06/14 0847 98.7 115 16 133/75 90 16 0800 98.7 115 16 133/75 90 16 0800 98.7 115 16 133/75 90 OXYGEN 06/14 1500 06/14 2300 06/15 0700 Intake Total 2064 1426 Output Total 300 1750 1250 Balance -300 315 176 Intake, IV 1905 1426 Intake, Oral 160 Intake, Tube 0 Irrigant Output, Other 550 550 Output, Urine 300 1200 700 Patient 67.699 kg Weight Laboratory Tests Test Result Date Time Chemistry Sodium (mmoL/L) 142 06/14 0601 Potassium (mmoL/L) 3.2 06/14 0601 Chloride (mmoL/L) 108 06/14 0601 Carbon Dioxide (mmoL/L) 30 06/14 601 BUN (mg/dL) 12 06/14 601 Creatinine (mg/dL) 0.6 06/14 601 Estimated Creat Clear (ML/MIN) 86 06/14 601 Estimated GFR (MDRD) (ML/MIN) 99 06/14 601 Glucose (mg/dL) 87 06/14 601 Lactic Acid (MMOL/L) 2.8 06/13 1012 Calcium (mg/dL) 8.3 06/14 601 Magnesium (mg/dL) 1.8 06/12 930 Total Bilirubin (mg/dL) 0.4 06/13 605 Direct Bilirubin (mg/dL) 0.09 06/13 605 Indirect Bilirubin (mg/dL) 0.31 06/13 605 AST (U/L) 21 06/13 605 ALT (U/L) 24 06/13 605 Alkaline Phosphatase (U/L) 58 06/13 605 Total Protein (gm/dL) 5.4 06/13 605 Albumin (gm/dL) 2.7 06/13 605 Globulin (gm/dL) 4.1 06/12 930 Albumin/Globulin Ratio 1.1 06/12 930 Amylase (U/L) 30 06/12 09 Lipase (U/L) 137 06/12 930 Hematology WBC (K/MM3) 11.5 06/14 601 RBC (M/mm3) 3.40 06/14 601 Hgb (g/dL) 10.8 06/14 601 Hct (%) 32.5 06/14 601 MCV (fl) 95.6 06/14 601 RDW (%) 12.7 06/14 601 Plt Count (K/mm3) 256 06/14 601 MPV (fl) 8.9 06/14 601 Gran % (%) 72.1 06/14 601 Gran # (K/mm3) 8.3 06/14 601 Total Counted (#CELLS) 100 06/13 1400 Lymphocytes % (%) 21.5 06/14 601 Monocytes % (%) 5.5 06/14 601 Eosinophils % (%) 0.5 06/14 601 Basophils % (%) 0.3 06/14 601 Neutrophils (%) 79 06/13 1400 Band Neutrophils (%) 2 06/13 1400 Lymphocytes (Manual) (%) 14 06/13 1400 Lymphocytes # (K/mm3) 2.5 06/14 0601 Monocytes (Manual) (%) 5 06/13 1400 Monocytes # (K/mm3) 0.6 06/14 06 Eosinophils # (K/mm3) 0.1 06/14 06 Basophils # (K/MM3) 0.0 06/14 06 Metamyelocytes (%) 1 06/12 0930 RBC/WBC/PLT Morphology NORMAL 06/13 1400 Atypical Lymphocytes (%) 2 06/12 0930 Platelet Estimate NORMAL 06/13 1400 PUBS MCHC (g/dl) 32.9 06/14 06 Immunology Antibody Screen NEGATIVE 06/12 1825 MCH (pg) 31.5 06/14 06 Miscellaneous Miscellaneous Test POSITIVE 06/12 1825 Urines Urine Color YELLOW 06/12 1330 Urine Appearance CLOUDY 06/12 1330 Urine pH 7.0 06/12 1330 Ur Specific [place] 1.020 06/12 1330 Urine Protein (mg/dL) 1+ 06/12 1330 Urine Ketones (mg/dL) 1+ 06/12 1330 Urine Blood NEGATIVE 06/12 1330 Urine Nitrate NEGATIVE 06/12 1330 Urine Bilirubin NEGATIVE 06/12 1330 Urine Urobilinogen (E.U./dL) 1.0 06/12 1330 Ur Leukocyte Esterase NEGATIVE 06/12 1330 Urine RBC (rbc/hpf) NONE 06/12 1330 Urine WBC (wbc/hpf) OCC 06/12 1330 Ur Squamous Epith Cells (#/hpf) OCC 06/12 1330 Amorphous Sediment 2+ 06/12 1330 Urine Bacteria 2+ 06/12 1330 Urine Mucus 2+ 06/12 1330 Urine Glucose NEGATIVE 06/12 1330 Additional data: Morning films show progression (slow) of contrast Physical Exam VS/I&O Vital Signs Date Time Temp Pulse Resp B/P Pulse O2 O2 Flow FiO2 Ox Delivery Rate 06/15 0551 98.2 102 18 159/69 93 OXYGEN 1 06/15 0425 98.7 96 18 126/59 94 OXYGEN 1 06/15 0200 98.2 107 18 127/76 94 06/15 0159 98.2 107 18 127/76 94 OXYGEN 1 06/15 0020 99.1 102 18 127/74 92 09/17 0012 99.1 102 18 127/74 92 OXYGEN 1 06/14 2200 98.8 102 18 136/67 90 /16 2149 98.8 102 18 136/67 90 OXYGEN 1 06/14 2015 99.1 106 18 124/58 91 /16 2000 99.1 106 18 124/58 91 /16 1938 99.1 106 18 124/58 91 OXYGEN 1 06/14 1800 99.8 107 16 122/62 89 /16 1625 100.4 115 16 132/70 93 OXYGEN /16 1600 100.4 115 16 132/70 93 /16 1410 98.5 112 16 139/73 91 OXYGEN /16 1400 98.5 112 16 139/73 91 /16 1205 100.0 123 18 146/79 89 OXYGEN 06/14 1159 100.0 113 16 146/79 89 /16 1000 99.0 116 16 155/71 90 /16 0847 98.7 115 16 133/75 90 /16 0800 98.7 115 16 133/75 90 16 0800 98.7 115 16 133/75 90 OXYGEN I&O 06/15 0700 Intake Total 3491 Output Total 3300 Balance 191 Intake, IV 3331 Intake, Oral 160 Intake, Tube 0 Irrigant Output, Other 1100 Output, Urine 2200 Patient 67.699 kg Weight Exam General appearance no acute distress Respiratory no distress Cardiovascular regular rate and rhythm Abdomen soft (incision c/d/i) Post op patient plan Diagnoses: post-op ileus hypokalemia leukocytosis Plan: f/u AM labs, NG to SD, limited clears This inpt stay is expected to cross 2 MNs from start of care Yes Antibiotic Stewardship (2) Infxn that will respond? Yes Right drug,dose,and route? Yes More targeted antbx? No at 0806
--- NOTE | 2017-06-15 09:28 | RADIOLOGY REPORT PS360 ---
ABDOMEN-FLAT UPRIGHT HISTORY: post-op ileusNG tube. Abdominal discomfort Patient Age: 71 years: Female Ordering Physician: QASIM MARIE MD TECHNIQUE: Flat and upright abdomen COMPARISON :Flat and upright abdomen from yesterday at 06/14/2017; & 06/12/2017 CT 06/12/2017 afternoon small bowel series FINDINGS : NG tube is in place. Tip in stomach satisfactory position. Bibasilar atelectasis. Possible small right pleural effusion The oral contrast from 06/12/2017 small bowel series remains. Less than expected, slow distal progression of this oral contrast evident today, suggesting ileus. We do see contrast now at the right colon & cecum today which was not present yesterday. However continue to see air-fluid levels within mildly dilated small bowel. Most evident air-fluid level seen at the mid abdomen at the loop of mid-proximal small mya on the upright film. Perhaps very slight overall decreased small bowel dilatation here than yesterday study.. Slow progression and dilated bowel pattern suggesting an ileus, possibly postoperative, although cannot exclude associated component of persistent partial distal small bowel obstruction. I would note the distal most ileum/terminal ileum region seems to be of smaller caliber than the mid small bowel. Appears be minimal stool evident at the right colon . Also evident on recent CT & and less evident but noted on today's studies, there are some persistent linear densities seen within small bowel and right colon likely related to poorly chewed ingested material. (As previously evident at stomach, small bowel and right colon on CT exam 06/12/2017. Curious feature but noted. Possibly eating carrots sticks or cellery sticks on 06/12/2017?) Midline skin dionne reflect recent surgery. No free air within the abdomen. 15 mm sclerotic focus at the left iliac bone superior the left acetabulum again noted. Nonspecific but more likely benign feature. Warrants follow-up IMPRESSION Very slow distal progression of enteric contrast, since 06/14/2017 & 06/13/2017.- It is now reached the right colon. Appearance suggesting resolving ileus although difficult to exclude some mild residual partial obstruction. Noting distal ileum/& Terminal ileum is less caliber than the mildly dilated mid & proximal small bowel.. Persistent Air-fluid level most evident at a loop of mildly dilated mid small bowel on today's study NG tube the satisfactory position . Bibasilar atelectasis with questionable small right pleural effusion
[2017-06-15 09:32] LABS: LYMPH # 1.9 K/mm3 (0.7-4.5); LYMPH % 19.8 % (10-50.0)
[2017-06-16] VITALS (18 sets, daily range): BP systolic 126–160; BP diastolic 61–95
[2017-06-16 06:31] LABS: HEMOGLOBIN 9.8 g/dL (12.2-16.2); LYMPH # 1.6 K/mm3 (0.7-4.5); LYMPH % 27.7 % (10-50.0)
--- NOTE | 2017-06-16 07:14 | RADIOLOGY REPORT PS360 ---
ABDOMEN-FLAT UPRIGHT HISTORY: post-op ileus ORDERING PHYSICIAN: QASIM MARIE MD PATIENT AGE: 71 years COMPARISON: 06/14/2017, 06/15/2017 FINDINGS: Nasogastric tube remains in place. Contrast is moved further into the large bowel is mostly out of the small bowel compared to the previous exam. There is some bowel wall thickening suspected in the left upper quadrant and is felt to be small bowel . Nasogastric tube is present with the tip in region of the body the stomach. No evidence of free air. There is some mild right basilar atelectasis. Surgical clips are present over the mid lower abdomen. IMPRESSION: Contrast is moving through the small bowel into the large bowel indicating improving ileus. Small bowel wall thickening in the jejunal area which could be due to underlying small bowel edema/enteritis
--- NOTE | 2017-06-16 08:03 | SURGEON PROGRESS NOTE ---
Subjective data Subjective data: ANGELLA TELLEZ is a 71 F .Patient denies complaint of nausea and vomitting.She reports her last pain level as 0 on a 0-10 pain scale. Patient without complaints. No nausea. Still no flatus. Assessment findings Assessment Exam General appearance: normal appearance, alert ABD: soft Patient plan Plan: Possible NG out today. Antibiotic Stewardship (2) Infxn that will respond? Yes Right drug,dose,and route? Yes More targeted antbx? No at [id number]
[2017-06-17] VITALS (12 sets, daily range): BP systolic 129–155; BP diastolic 66–80
--- NOTE | 2017-06-17 08:21 | POST-OP PROGRESS NOTE ---
Post Op Subjective Data Patient is post-op day 5 Subjective data: Feels "OK" this AM. No nausea. NG out yesterday. Some flatus. Post op objective data Vitals,I&O,and Labs: Vital signs, intake and output,and available lab data for the last 24 hours is as noted below. Vital Signs Date Time Temp Pulse Resp B/P Pulse O2 O2 Flow FiO2 Ox Delivery Rate 06/17 0620 98.9 78 16 130/72 95 06/17 0619 98.9 78 16 130/72 95 ROOM AIR 06/17 0405 98.9 90 18 145/78 95 06/17 0401 98.9 90 18 145/78 95 ROOM AIR 06/17 0215 98.8 86 16 150/75 94 06/17 0214 98.8 86 16 150/75 94 ROOM AIR 06/17 0034 99.3 85 18 136/77 94 06/16 2345 99.3 85 18 136/77 94 ROOM AIR 06/16 2228 98.8 98 18 141/77 96 06/16 2226 98.8 98 18 141/77 96 ROOM AIR 06/16 2000 99.2 94 18 150/95 96 06/16 2000 99.2 94 18 150/95 96 06/16 1958 99.2 94 18 150/95 96 ROOM AIR 06/16 1935 99.6 84 18 160/77 96 06/16 1600 99.6 84 18 160/77 96 ROOM AIR 06/16 1403 99.5 90 18 146/78 95 ROOM AIR 06/16 1149 99.1 92 18 146/61 96 ROOM AIR 06/16 1002 97.9 92 21 129/76 97 ROOM AIR 06/16 1500 06/16 2300 06/17 0700 Intake Total 0 1863 1204 Output Total 350 2275 4150 Balance -350 412 2946 Intake, IV 1663 1204 Intake, Oral 200 Intake, Tube 0 Irrigant Output, Urine 350 2275 4150 Patient 67.699 kg 67.699 kg Weight Laboratory Tests Test Result Date Time Chemistry Sodium (mmoL/L) 141 06/16 0601 Potassium (mmoL/L) 3.8 06/16 06 Chloride (mmoL/L) 109 06/16 0601 Carbon Dioxide (mmoL/L) 28 06/16 0601 BUN (mg/dL) 6 06/16 0601 Creatinine (mg/dL) 0.5 06/16 601 Estimated Creat Clear (ML/MIN) 112 06/16 601 Estimated GFR (MDRD) (ML/MIN) 122 06/16 06 Glucose (mg/dL) 181 06/16 601 POC Glucose (mg/dl) 110 06/15 1829 Lactic Acid (MMOL/L) 2.8 06/13 1012 Calcium (mg/dL) 8.1 06/16 601 Magnesium (mg/dL) 1.7 06/15 0725 Total Bilirubin (mg/dL) 0.4 06/13 06 Direct Bilirubin (mg/dL) 0.09 06/13 06 Indirect Bilirubin (mg/dL) 0.31 06/13 605 AST (U/L) 21 06/13 06 ALT (U/L) 24 06/13 605 Alkaline Phosphatase (U/L) 58 06/13 605 Total Protein (gm/dL) 5.4 06/13 605 Albumin (gm/dL) 2.7 06/13 605 Globulin (gm/dL) 4.1 06/12 930 Albumin/Globulin Ratio 1.1 06/12 09 Amylase (U/L) 30 06/12 0930 Lipase (U/L) 137 06/12 0930 Hematology WBC (K/MM3) 5.8 06/16 601 RBC (M/mm3) 3.17 06/16 601 Hgb (g/dL) 9.8 06/16 601 Hct (%) 29.4 06/16 601 MCV (fl) 92.9 06/16 601 RDW (%) 12.4 06/16 601 Plt Count (K/mm3) 322 06/16 601 MPV (fl) 7.4 06/16 601 Gran % (%) 60.5 06/16 601 Gran # (K/mm3) 3.5 06/16 601 Total Counted (#CELLS) 100 06/13 1400 Lymphocytes % (%) 27.7 06/16 601 Monocytes % (%) 8.0 06/16 601 Eosinophils % (%) 3.5 06/16 601 Basophils % (%) 0.3 06/16 601 Neutrophils (%) 79 06/13 1400 Band Neutrophils (%) 2 06/13 1400 Lymphocytes (Manual) (%) 14 06/13 1400 Lymphocytes # (K/mm3) 1.6 06/16 601 Monocytes (Manual) (%) 5 06/13 1400 Monocytes # (K/mm3) 0.5 06/16 601 Eosinophils # (K/mm3) 0.2 06/16 601 Basophils # (K/MM3) 0.0 06/16 601 Metamyelocytes (%) 1 06/12 0930 RBC/WBC/PLT Morphology NORMAL 06/13 1400 Atypical Lymphocytes (%) 2 06/12 0930 Platelet Estimate NORMAL 06/13 1400 PUBS MCHC (g/dl) 33.4 06/16 601 Immunology Antibody Screen NEGATIVE 06/12 182 MCH (pg) 31.0 06/16 601 Miscellaneous Miscellaneous Test POSITIVE 06/12 1825 Urines Urine Color YELLOW 06/12 1330 Urine Appearance CLOUDY 06/12 1330 Urine pH 7.0 06/12 1330 Ur Specific [place] 1.020 06/12 1330 Urine Protein (mg/dL) 1+ 06/12 1330 Urine Ketones (mg/dL) 1+ 06/12 1330 Urine Blood NEGATIVE 06/12 1330 Urine Nitrate NEGATIVE 06/12 1330 Urine Bilirubin NEGATIVE 06/12 1330 Urine Urobilinogen (E.U./dL) 1.0 06/12 1330 Ur Leukocyte Esterase NEGATIVE 06/12 1330 Urine RBC (rbc/hpf) NONE 06/12 1330 Urine WBC (wbc/hpf) OCC 06/12 1330 Ur Squamous Epith Cells (#/hpf) OCC 06/12 1330 Amorphous Sediment 2+ 06/12 1330 Urine Bacteria 2+ 06/12 1330 Urine Mucus 2+ 06/12 1330 Urine Glucose NEGATIVE 06/12 1330 Physical Exam VS/I&O Vital Signs Date Time Temp Pulse Resp B/P Pulse O2 O2 Flow FiO2 Ox Delivery Rate 06/17 06 98.9 78 16 130/72 95 06/17 06 98.9 78 16 130/72 95 ROOM AIR 06/17 0405 98.9 90 18 145/78 95 06/17 0401 98.9 90 18 145/78 95 ROOM AIR 06/17 0215 98.8 86 16 150/75 94 06/17 0214 98.8 86 16 150/75 94 ROOM AIR 06/17 0034 99.3 85 18 136/77 94 06/16 2345 99.3 85 18 136/77 94 ROOM AIR 06/16 2228 98.8 98 18 141/77 96 06/16 2226 98.8 98 18 141/77 96 ROOM AIR 06/16 2000 99.2 94 18 150/95 96 06/16 2000 99.2 94 18 150/95 96 06/16 1958 99.2 94 18 150/95 96 ROOM AIR 06/16 1935 99.6 84 18 160/77 96 06/16 1600 99.6 84 18 160/77 96 ROOM AIR 06/16 1403 99.5 90 18 146/78 95 ROOM AIR 06/16 1149 99.1 92 18 146/61 96 ROOM AIR 06/16 1002 97.9 92 21 129/76 97 ROOM AIR I&O 06/17 0700 Intake Total 3067 Output Total 6775 Balance -3708 Intake, IV 2867 Intake, Oral 200 Intake, Tube 0 Irrigant Output, Urine 6775 Patient 67.699 kg Weight Exam General appearance no acute distress Respiratory no distress Cardiovascular regular rate and rhythm Abdomen soft (incision c/d/i) Post op patient plan Diagnoses: Post-op ileus - slowly resolving Leukocytosis - resolved Plan: Advance diet, Ambulate This inpt stay is expected to cross 2 MNs from start of care Yes Additional data: She will be changed to Augmentin to complete a course of antibiotics secondary to her presenting findings. Antibiotic Stewardship (2) Infxn that will respond? Yes Right drug,dose,and route? Yes More targeted antbx? No at [id number]
[2017-06-18] VITALS (8 sets, daily range): BP systolic 106–139; BP diastolic 53–65
--- NOTE | 2017-06-18 07:28 | RADIOLOGY REPORT PS360 ---
ABDOMEN-FLAT UPRIGHT HISTORY: ileus ORDERING PHYSICIAN: QASIM MARIE MD PATIENT AGE: 71 years COMPARISON: 06/16/2017 FINDINGS: There are gas-filled loops of small and large bowel consistent with ileus. Previously noted in small bowel loops in the left upper quadrant not readily apparent on today's exam. There is increase in small bowel gas which may be due to developing ileus. All of the contrast is now in the right colon. No free air evident. There is a small right pleural effusion. Scattered air-fluid levels are present in the large and small bowel. Skin clips are present over the mid abdominal region. IMPRESSION: 1. The findings are consistent with postop ileus. There are slight increase in small bowel gas from the previous study. 2. Residual contrast within right colon. 3. Small right pleural effusion
[2017-06-18 07:31] LABS: HEMOGLOBIN 9.3 g/dL (12.2-16.2); LYMPH # 2.1 K/mm3 (0.7-4.5); LYMPH % 21.7 % (10-50.0)
--- NOTE | 2017-06-18 08:48 | POST-OP PROGRESS NOTE ---
Post Op Subjective Data Patient is post-op day 6 Subjective data: Feels "a bit better". No significant pain. She continues to pass flatus. Post op objective data Vitals,I&O,and Labs: Vital signs, intake and output,and available lab data for the last 24 hours is as noted below. Vital Signs Date Time Temp Pulse Resp B/P Pulse O2 O2 Flow FiO2 Ox Delivery Rate 06/18 0752 98.8 81 20 107/65 95 06/18 0350 98.8 81 20 107/65 95 ROOM AIR 06/18 0123 18 06/17 2340 98.6 79 18 155/66 94 ROOM AIR 06/17 2222 20 06/17 2014 98.4 79 20 155/76 92 ROOM AIR 06/17 1945 98.6 79 18 155/66 94 06/17 1556 98.5 71 20 145/69 96 ROOM AIR 06/17 1446 16 06/17 1236 16 06/17 1500 06/17 2300 06/18 0700 Intake Total 1353 1515 Output Total 500 1500 1150 Balance -500 -147 365 Intake, IV 873 1395 Intake, Oral 480 120 Output, Urine 500 1500 1150 Laboratory Tests Test Result Date Time Chemistry Sodium (mmoL/L) 138 06/18 0605 Potassium (mmoL/L) 3.9 06/18 0605 Chloride (mmoL/L) 106 06/18 0605 Carbon Dioxide (mmoL/L) 30 06/18 0605 BUN (mg/dL) 5 06/18 0605 Creatinine (mg/dL) 0.5 06/18 06 Estimated Creat Clear (ML/MIN) 112 06/18 0605 Estimated GFR (MDRD) (ML/MIN) 122 06/18 0605 Glucose (mg/dL) 118 06/18 0605 POC Glucose (mg/dl) 110 06/15 1829 Lactic Acid (MMOL/L) 2.8 06/13 1012 Calcium (mg/dL) 8.7 06/18 0605 Magnesium (mg/dL) 1.7 06/15 0725 Total Bilirubin (mg/dL) 0.4 06/13 0605 Direct Bilirubin (mg/dL) 0.09 06/13 0605 Indirect Bilirubin (mg/dL) 0.31 06/13 0605 AST (U/L) 21 06/13 0605 ALT (U/L) 24 06/13 0605 Alkaline Phosphatase (U/L) 58 06/13 605 Total Protein (gm/dL) 5.4 06/13 605 Albumin (gm/dL) 2.7 06/13 605 Globulin (gm/dL) 4.1 06/12 930 Albumin/Globulin Ratio 1.1 06/12 930 Amylase (U/L) 30 06/12 09 Lipase (U/L) 137 06/12 930 Hematology WBC (K/MM3) 9.8 06/18 605 RBC (M/mm3) 3.00 06/18 605 Hgb (g/dL) 9.3 06/18 605 Hct (%) 28.3 06/18 605 MCV (fl) 94.3 06/18 605 RDW (%) 12.9 06/18 605 Plt Count (K/mm3) 410 06/18 605 MPV (fl) 9.3 06/18 605 Gran % (%) 67.6 06/18 605 Gran # (K/mm3) 6.6 06/18 605 Total Counted (#CELLS) 100 06/13 1400 Lymphocytes % (%) 21.7 06/18 605 Monocytes % (%) 7.6 06/18 605 Eosinophils % (%) 2.7 06/18 605 Basophils % (%) 0.5 06/18 605 Neutrophils (%) 79 06/13 1400 Band Neutrophils (%) 2 06/13 1400 Lymphocytes (Manual) (%) 14 06/13 1400 Lymphocytes # (K/mm3) 2.1 06/18 06 Monocytes (Manual) (%) 5 06/13 1400 Monocytes # (K/mm3) 0.8 06/18 605 Eosinophils # (K/mm3) 0.3 06/18 605 Basophils # (K/MM3) 0.1 06/18 605 Metamyelocytes (%) 1 06/12 930 RBC/WBC/PLT Morphology NORMAL 06/13 1400 Atypical Lymphocytes (%) 2 06/12 930 Platelet Estimate NORMAL 06/13 1400 PUBS MCHC (g/dl) 32.8 06/18 605 Immunology Antibody Screen NEGATIVE 06/12 1825 MCH (pg) 30.9 06/18 605 Miscellaneous Miscellaneous Test POSITIVE 06/12 1825 Urines Urine Color YELLOW 06/12 1330 Urine Appearance CLOUDY 06/12 1330 Urine pH 7.0 06/12 1330 Ur Specific [place] 1.020 06/12 1330 Urine Protein (mg/dL) 1+ 06/12 1330 Urine Ketones (mg/dL) 1+ 06/12 1330 Urine Blood NEGATIVE 06/12 1330 Urine Nitrate NEGATIVE 06/12 1330 Urine Bilirubin NEGATIVE 06/12 1330 Urine Urobilinogen (E.U./dL) 1.0 06/12 1330 Ur Leukocyte Esterase NEGATIVE 06/12 1330 Urine RBC (rbc/hpf) NONE 06/12 1330 Urine WBC (wbc/hpf) OCC 06/12 1330 Ur Squamous Epith Cells (#/hpf) OCC 06/12 1330 Amorphous Sediment 2+ 06/12 1330 Urine Bacteria 2+ 06/12 1330 Urine Mucus 2+ 06/12 1330 Urine Glucose NEGATIVE 06/12 1330 Physical Exam VS/I&O Vital Signs Date Time Temp Pulse Resp B/P Pulse O2 O2 Flow FiO2 Ox Delivery Rate 06/18 0752 98.8 81 20 107/65 95 06/18 0350 98.8 81 20 107/65 95 ROOM AIR 06/18 0123 18 06/17 2340 98.6 79 18 155/66 94 ROOM AIR 06/17 2222 20 06/17 2014 98.4 79 20 155/76 92 ROOM AIR 06/17 1945 98.6 79 18 155/66 94 06/17 1556 98.5 71 20 145/69 96 ROOM AIR 06/17 1446 16 06/17 1236 16 I&O 06/18 0700 Intake Total 2868 Output Total 3150 Balance -282 Intake, IV 2268 Intake, Oral 600 Output, Urine 3150 Exam General appearance no acute distress Respiratory no distress Cardiovascular regular rate and rhythm Abdomen soft (incision c/d/i) Findings/Data AM films reveal persistent ileus Post op patient plan Diagnoses: post-op ileus Plan: slowly advance diet This inpt stay is expected to cross 2 MNs from start of care Yes Antibiotic Stewardship (2) Infxn that will respond? Yes Right drug,dose,and route? Yes More targeted antbx? No at [id number]
[2017-06-19 04:10] VITALS: BP 126/64
--- NOTE | 2017-06-19 07:11 | POST-OP PROGRESS NOTE ---
Post Op Subjective Data Patient is post-op day 7 Subjective data: Some pain overnight. She states that she "feels better right now". She continues to pass "some" flatus. Post op objective data Vitals,I&O,and Labs: Vital signs, intake and output,and available lab data for the last 24 hours is as noted below. Vital Signs Date Time Temp Pulse Resp B/P Pulse O2 O2 Flow FiO2 Ox Delivery Rate 06/19 0410 98.4 64 18 126/64 93 ROOM AIR 06/19 0251 16 06/18 2352 97.8 65 15 114/63 95 ROOM AIR 06/18 2000 98.4 77 18 106/58 93 06/18 1912 18 06/18 1900 98.4 77 18 106/58 93 ROOM AIR 06/18 1600 98.4 64 18 123/61 93 ROOM AIR 06/18 1200 98.3 75 20 110/53 94 ROOM AIR 06/18 0957 20 06/18 0800 99.0 90 20 139/61 95 ROOM AIR 06/18 0752 98.8 81 20 107/65 95 06/18 1500 06/18 2300 06/19 0700 Intake Total 840 414 Output Total 900 400 600 Balance -900 440 -186 Intake, IV 414 Intake, Oral 840 Output, Urine 900 400 600 Laboratory Tests Test Result Date Time Chemistry Sodium (mmoL/L) 138 06/18 0605 Potassium (mmoL/L) 3.9 06/18 0605 Chloride (mmoL/L) 106 06/18 0605 Carbon Dioxide (mmoL/L) 30 06/18 0605 BUN (mg/dL) 5 06/18 0605 Creatinine (mg/dL) 0.5 06/18 0605 Estimated Creat Clear (ML/MIN) 112 06/18 0605 Estimated GFR (MDRD) (ML/MIN) 122 06/18 0605 Glucose (mg/dL) 118 06/18 0605 POC Glucose (mg/dl) 110 06/15 1829 Lactic Acid (MMOL/L) 2.8 06/13 1012 Calcium (mg/dL) 8.7 06/18 0605 Magnesium (mg/dL) 1.7 06/15 0725 Total Bilirubin (mg/dL) 0.4 06/13 0605 Direct Bilirubin (mg/dL) 0.09 06/13 0605 Indirect Bilirubin (mg/dL) 0.31 09/15 0605 AST (U/L) 21 06/13 605 ALT (U/L) 24 06/13 605 Alkaline Phosphatase (U/L) 58 06/13 605 Total Protein (gm/dL) 5.4 06/13 605 Albumin (gm/dL) 2.7 06/13 605 Globulin (gm/dL) 4.1 06/12 930 Albumin/Globulin Ratio 1.1 06/12 930 Amylase (U/L) 30 06/12 930 Lipase (U/L) 137 06/12 930 Hematology WBC (K/MM3) 9.8 06/18 605 RBC (M/mm3) 3.00 06/18 605 Hgb (g/dL) 9.3 06/18 605 Hct (%) 28.3 06/18 605 MCV (fl) 94.3 06/18 605 RDW (%) 12.9 06/18 605 Plt Count (K/mm3) 410 06/18 605 MPV (fl) 9.3 06/18 605 Gran % (%) 67.6 06/18 605 Gran # (K/mm3) 6.6 06/18 605 Total Counted (#CELLS) 100 06/13 1400 Lymphocytes % (%) 21.7 06/18 605 Monocytes % (%) 7.6 06/18 605 Eosinophils % (%) 2.7 06/18 605 Basophils % (%) 0.5 06/18 605 Neutrophils (%) 79 06/13 1400 Band Neutrophils (%) 2 06/13 1400 Lymphocytes (Manual) (%) 14 06/13 1400 Lymphocytes # (K/mm3) 2.1 06/18 605 Monocytes (Manual) (%) 5 06/13 1400 Monocytes # (K/mm3) 0.8 06/18 605 Eosinophils # (K/mm3) 0.3 06/18 605 Basophils # (K/MM3) 0.1 06/18 605 Metamyelocytes (%) 1 06/12 930 RBC/WBC/PLT Morphology NORMAL 06/13 1400 Atypical Lymphocytes (%) 2 06/12 930 Platelet Estimate NORMAL 06/13 1400 PUBS MCHC (g/dl) 32.8 06/18 605 Immunology Antibody Screen NEGATIVE 06/12 1825 MCH (pg) 30.9 09/20 0605 Miscellaneous Miscellaneous Test POSITIVE 06/12 1825 Urines Urine Color YELLOW 06/12 1330 Urine Appearance CLOUDY 06/12 1330 Urine pH 7.0 06/12 1330 Ur Specific [place] 1.020 06/12 1330 Urine Protein (mg/dL) 1+ 06/12 1330 Urine Ketones (mg/dL) 1+ 06/12 1330 Urine Blood NEGATIVE 06/12 1330 Urine Nitrate NEGATIVE 06/12 1330 Urine Bilirubin NEGATIVE 06/12 1330 Urine Urobilinogen (E.U./dL) 1.0 06/12 1330 Ur Leukocyte Esterase NEGATIVE 06/12 1330 Urine RBC (rbc/hpf) NONE 06/12 1330 Urine WBC (wbc/hpf) OCC 06/12 1330 Ur Squamous Epith Cells (#/hpf) OCC 06/12 1330 Amorphous Sediment 2+ 06/12 1330 Urine Bacteria 2+ 06/12 1330 Urine Mucus 2+ 06/12 1330 Urine Glucose NEGATIVE 06/12 1330 Physical Exam VS/I&O Vital Signs Date Time Temp Pulse Resp B/P Pulse O2 O2 Flow FiO2 Ox Delivery Rate 06/19 0410 98.4 64 18 126/64 93 ROOM AIR 06/19 0251 16 06/18 2352 97.8 65 15 114/63 95 ROOM AIR 06/18 2000 98.4 77 18 106/58 93 06/18 1912 18 06/18 1900 98.4 77 18 106/58 93 ROOM AIR 06/18 1600 98.4 64 18 123/61 93 ROOM AIR 06/18 1200 98.3 75 20 110/53 94 ROOM AIR 06/18 0957 20 06/18 0800 99.0 90 20 139/61 95 ROOM AIR 06/18 0752 98.8 81 20 107/65 95 I&O 06/19 0700 Intake Total 1254 Output Total 1900 Balance -646 Intake, IV 414 Intake, Oral 840 Output, Urine 1900 Exam General appearance no acute distress Respiratory no distress Cardiovascular regular rate and rhythm Abdomen soft (incision c/d/i) Post op patient plan Diagnoses: post-op ileus - slowly improving Plan: stay on full liquids for now, possible d/c home later today This inpt stay is expected to cross 2 MNs from start of care Yes at 0711
[2017-06-19 07:46] VITALS: BP 106/56
[2017-06-19 08:11] VITALS: BP 106/56
[2017-06-19] MEDS ORDERED: NORCO 325 MG-51 TAB PO (13:45)
--- NOTE | 2017-06-19 13:55 | Discharge Summary Report ---
General Admit date: 06/12/17 Discharge date: 06/19/17 Admission Dx: Small bowel obstruction Leukocytosis Lactic acidosis Discharge Dx: Same as preoperative diagnoses, with the addition of the following: Postoperative ileus Hospital course: The patient presented to the emergency department with increasing abdominal pain. She had radiographic evidence of small bowel obstruction with possible transition. She had a significant leukocytosis and elevated lactate. She was taken to the operating room where extensive adhesiolysis and partial small bowel resection were completed. Please see operative report for detail. Postoperatively, she convalesced well. Her laboratory anomalies improved during the first 2-3 days. She did have signs consistent with dehydration and showed ongoing tachycardia during the first few days postoperatively. This finding resolved with improvement of her hydration status. Her bowel function was somewhat slow to return and her nasogastric tube was not removed until postoperative day 4. She continued to pass flatus and had no significant difficulty ambulating. Her pain levels and overall physical examination findings improved over the next few days and she was deemed appropriate for discharge on postoperative day 7. At the time of discharge she was afebrile with stable and normal vital signs. She was ambulating without difficulty and tolerating full liquids. Condition at discharge: improved Problem List Medical Problems Abscess Acute bronchitis Chronic bronchitis with acute exacerbation Leucocytosis Nausea Shoulder arthritis Small bowel obstruction Allergies Coded Allergies: No Known Allergies (06/12/17) [facility] summary Medications Active Scripts Dextromethorphan Hb/Doxylamine (Robitussin Nighttime Cough Dm) 5 ML PO Q4H #240 ML Prov: 10/31/16 Reported Medications Benzonatate (Tessalon Perle) 100 MG PO TIDP PRN COUGH VENLAFAXINE HCL (Venlafaxine HCl ER) 37.5 MG PO DAILY #30 Levothyroxine Sodium (Synthroid 0.125MG) 0.1 MG PO DAILY Temazepam (Restoril 30MG) 30 MG PO QHS Diazepam 10 MG PO TIDP PRN ANXIETY Txs and Procedures Treatments and Procedures: Exploratory laparotomy with extensive adhesiolysis and distal small bowel resection/primary anastomosis. Labs: Laboratory Tests 06/18/17 0605: Sodium 138, Potassium 3.9, Chloride 106, Carbon Dioxide 30, BUN 5 L, Creatinine 0.5 L, Estimated Creat Clear 112, Estimated GFR (MDRD) 122, Glucose 118 H, Calcium 8.7, WBC 9.8, RBC 3.00 L, Hgb 9.3 L, Hct 28.3 L, MCV 94.3, RDW 12.9, Plt Count 410, MPV 9.3, Gran % 67.6, Gran # 6.6, Lymphocytes % 21.7, Monocytes % 7.6, Eosinophils % 2.7, Basophils % 0.5, Lymphocytes # 2.1, Monocytes # 0.8, Eosinophils # 0.3, Basophils # 0.1, PUBS MCHC 32.8, MCH 30.9 at 1352
[2017-06-19 14:19] VITALS: BP 106/56
--- OUTSIDE RECORDS SUMMARY | 2017-07-08 05:46 | External Medical Summary Rpt ---
Author Author , DANE Almendarez DANE Address Unknown Phone [email or web address] Care Team Providers Care Shrimp Header Name Role Phone A Derrick CANDELARIO MD PSC, A Unavailable Unavailable Derrick CANDELARIO MD PSC HELEN QUINN Unavailable Unavailable LARY CERVANTES MD, Unavailable Unavailable HEENA CERVANTES MD [facility] Unavailable Unavailable INC, [facility] Unavailable Unavailable HOSPITAL P, [facility] CAST[facility] JR [facility]I, CASTILLO Unavailable Unavailable JR DWI [facility] Unavailable Unavailable SERVICES, [facility], Unavailable Unavailable [facility], Unavailable Unavailable [facility] KODAK PARRA Unavailable Unavailable Purpose Continuity of Care Document - 02-26-2012 through 2016 Problems Code Diagnosis DOS Provider Status 401.9 401.9 09-22-2013 [facility] NOS Hospital 4019 UNSPECIFIED 09-22-2013 [facility] P N 558.9 558.9 09-22-2013 [facility] IT NEC 5589 OTH&UNSPEC 09-22-2013 [facility] ITIS&COLITI S 780.79 780.79 OTH 09-22-2013 [facility]&FAT [facility] IGUE [facility] 47199 OTHER 09-22-2013 [facility] 2449 UNSPECIFIED 08-26-2012 [facility] HYPOTHYROID ISM 86552 CHEST PAIN 02-26-2012 Mynor BARNARDIFIED PSC D72.829 ELEVATED WHITE BLOOD CELL COUNT, UNSPECIFIED J20.9 ACUTE BRONCHITIS, UNSPECIFIED K56.69 OTHER INTESTINAL OBSTRUCTION N60.02 SOLITARY CYST OF LEFT BREAST N63 UNSPECIFIED LUMP IN BREAST R92.8 OTH ABN AND INCONCLUSIV E FINDINGS ON DX IMAGING OF BREAST Z12.31 ENCNTR SCREEN MAMMOGRAM FOR MALIGNANT NEOPLASM OF BREAST Allergies, Adverse Reactions, Alerts Type Allergy to substance Adverse Reaction to Substance Substance Reaction Severity NO KNOWN ALLERGIES Unknown Unknown Medications Na ND Rx Da Fi Fi Am Da Di Ph RX Ph St me C No te ll ll ou ys ag ar # ys at rm s nt no ma ic us Or Da si cy ia de te s n re d SO 00 12 0 No DI 40 -2 UM 97 5- Lo 98 20 ng CH 30 13 er LO 9 RI Ac DE ti ve 0. 9% SO [place] TI ON Sa 63 12 0 No li 80 -2 ne 70 5- Lo 10 20 ng Fl 07 13 er us 5 h Ac 10 ti ML ve Sy ri ng e ON 00 12 0 No DA 64 -2 NS 16 5- Lo ET 08 20 ng RO 02 13 er N 5 HC Ac L ti 4 ve MG /2 ML AL ON 51 12 0 No DA 67 -2 NS 24 5- Lo ET 09 20 ng RO 10 13 er N 3 4 Ac MG ti /5 ve ML SO [place] TI ON Vital Signs 09-22-2013 19:13 Name Value Interpretat Reference Comment ion Range BP 62 mm[Hg] Diastolic BP Systolic 110 mm[Hg] Heart 62 /min Rate/Pulse O2% 100 % Respiratory 20 /min Rate 09-22-2013 17:15 Name Value Interpretat Reference Comment ion Range BP 68 mm[Hg] Diastolic BP Systolic 134 mm[Hg] Heart 75 /min Rate/Pulse O2% 100 % Respiratory 20 /min Rate Results Labs Lab Lab Date Result Refere Interp Status Commen Order Detail nces retati t Range on Differential panel, method unspecified - (06-13-2017 14:00) LYMPH 14 % 10% - Normal complet 017 50% ed 14:00 Platele NORMAL complet ts 017 ed [Presen 14:00 ce] in Blood by Light microsc opy Erythro NORMAL complet cyte 017 ed morphol 14:00 ogy finding [Identi fier] in Blood Blood type & Crossmatch panel in Blood (06-12-2017 18:25) Major COMPAT complet crossma 017 ed tch 18:25 [interp retatio n] Major COMPAT complet crossma 017 ed tch 18:25 [interp retatio n] by Immedia te spin Blood type & Crossmatch panel in Blood (06-12-2017 18:25) Blood 06-12- NEGATIV NEGATIV complet group 017 E E ed antibod 18:25 y screen [Presen ce] in Serum or Plasma Rh 06-12- POSITIV complet [Type] 017 E ed in 18:25 Blood ABO 06-12- O complet group 017 ed [Type] 18:25 in Blood Urinalysis dipstick W Reflex Microscopic panel in Urine (06-12-2017 13:30) Amorpho 06-12- 2+ NONE complet us 017 ed sedimen 13:30 t [Presen ce] in Urine sedimen t by Light microsc opy Bacteri 06-12- 2+ O complet a 017 ed [Presen 13:30 ce] in Urine sedimen t by Light microsc opy Mucus 06-12-2 2+ OCC complet [Presen 017 ed ce] in 13:30 Urine sedimen t by Light microsc opy Erythro 06-12- NONE 0 complet cytes 017 ed [Presen 13:30 ce] in Urine sedimen t by Light microsc opy Epithel 06-12-2 OCC 0#/hp complet ial 017 f - ed cells.s 13:30 5#/hp quamous f [Presen ce] in Urine sedimen t by Microsc opy high power field Urinalysis dipstick W Reflex Microscopic panel in Urine (06-12-2017 13:30) Appeara CLOUDY CLEAR complet nce of 017 ed Urine 13:30 Bilirub 06-12- NEGATIV NEG complet in 017 E ed [Presen 13:30 ce] in Urine by Test strip Erythro 06-12-2 NEGATIV NEG complet cytes 017 E ed [Presen 13:30 ce] in Urine Color 06-12- YELLOW YELLOW complet of 017 ed Urine 13:30 Ketones 1+ NEG Abnorma complet 017 l ed [Presen 13:30 ce] in Urine by Automat ed test strip Mucus 06-12- NEGATIV NEG complet [Presen 017 E ed ce] in 13:30 Urine sedimen t by Light microsc opy Nitrite 06-12- NEGATIV NEG complet 017 E ed [Presen 13:30 ce] in Urine by Test strip Urobili 1.0 NEG complet nogen 017 ed [Presen 13:30 ce] in Urine by Test strip Differential panel, method unspecified - (06-12-2017 09:30) LYMPH 11 % 10% - Normal complet 017 50% ed 09:30 Platele NORMAL complet ts 017 ed [Presen 09:30 ce] in Blood by Light microsc opy COMPREHENSIVE METABOLIC PANEL (09-22-2013 17:20) Glucose 188 74-106 complet 013 mg/dL ed Bld-mCn 17:20 c BUN 17 7-18 complet Bld-mCn 013 mg/dL ed c 17:20 Creat 1.1 0.6-1.0 complet SerPl-m 013 mg/dL ed Cnc 17:20 Creat 50 50-200 complet Cl 013 ML/MIN ed predict 17:20 ed SerPl C-G-vRa te GFR/BSA 50 59- complet .pred 013 ML/MIN ed SerPl 17:20 Schwart z-vRate Sodium 141 136-145 complet SerPl-s 013 mmoL/L ed Cnc 17:20 Potassi 4.4 3.5-5.1 complet um 013 mmoL/L ed SerPl-s 17:20 Cnc Chlorid 101 98-107 complet e 013 mmoL/L ed SerPl-s 17:20 Cnc CO2 23 21.0-32 complet SerPl-s 013 mmoL/L .0 ed Cnc 17:20 Calcium 9.9 8.5-10. complet 013 mg/dL 1 ed SerPl-m 17:20 Cnc Prot 09-22-2 8.3 6.4-8.2 complet SerPl-m 013 gm/dL ed Cnc 17:20 Albumin 4.4 3.4-5.0 complet 013 gm/dL ed SerPl-m 17:20 Cnc Globuli 3.9 1.3-3.2 complet n 013 gm/dL ed Ser-mCn 17:20 c Albumin 1.1 UNK 1.1-1.8 complet /Glob 013 ed SerPl-m 17:20 Rto Bilirub 09-22-2 0.4 0.2-1.0 complet 013 mg/dL ed SerPl-m 17:20 Cnc AST 09-22-2 27 U/L 15-37 complet SerPl-c 013 ed Cnc 17:20 ALT 09-22-2 70 U/L 30-65 complet SerPl-c 013 ed Cnc 17:20 ALP 09-22-2 112 U/L 50-136 complet SerPl-c 013 ed Cnc 17:20 CBC with AUTO DIFF (09-22-2013 17:20) WBC # 25-2 15.3 4.8-10. complet Bld 013 K/MM3 8 ed Auto 17:20 RBC # 09-22-2 4.94 4.2-5.4 complet Bld 013 M/mm3 ed Auto 17:20 Hgb 09-22-2 15.3 12.2-16 complet Bld-mCn 013 g/dL .2 ed c 17:20 Hct Fr 2 46.0 % 37.0-47 complet Bld 013 .0 ed 17:20 MCV RBC 09-22-2 93.1 fl 82.2-97 complet 013 .8 ed 17:20 MCH RBC 09-22-2 31.0 pg 27-31.2 complet Qn 013 ed Auto 17:20 MEAN 09-22-2 33.3 31.8-35 complet CORPUSC 013 g/dl .4 ed ULAR 17:20 HGB CONC RDW RBC 09-22-2 14.4 % 11.5-17 complet Auto 013 .5 ed 17:20 Platele 25-2 386 142-424 complet t Bld 013 K/mm3 ed Ql 17:20 Manual MEAN 09-22-2 7.7 fl 7.4-10. complet PLATELE 013 4 ed T 17:20 VOLUME Granulo 09-22-2 73.2 % 37.0-80 complet cytes 013 .0 ed Fr Bld 17:20 Auto LYMPH % 25-2 22.9 % 10-50.0 complet 013 ed 17:20 Monocyt 25-2 3.3 % 1.7-9.3 complet es Fr 013 ed Bld 17:20 Auto Eosinop 12-25-2 0.4 % 0.1-12. complet hil Fr 013 0 ed Bld 17:20 Auto Basophi 09-22-2 0.3 % 0.1-2.0 complet ls Fr 013 ed Bld 17:20 Auto Granulo 09-22-2 11.2 1.8-7.8 complet cytes # 013 K/mm3 ed Bld 17:20 Auto Lymphoc 09-22-2 3.5 0.7-4.5 complet ytes Fr 013 K/mm3 ed Bld 17:20 Auto Monocyt 09-22-2 0.5 0.1-1.0 complet es # 013 K/mm3 ed Bld 17:20 Auto Eosinop 09-22-2 0.1 0.0-0.4 complet hil # 013 K/mm3 ed Bld 17:20 Auto Basophi 09-22-2 0.0 0-0.2 complet ls # 013 K/MM3 ed Bld 17:20 Auto Procedures Procedure [place] [address] GEORGE VAZQUEZ TROPONIN 3 [facility] QUANTITAT INC INC CLOTILDE BLOOD 67011 GEORGE VAZQUEZ COUNT 3 [facility] COMPLETE INC INC AUTO&AUTO DIFRNTL WBC ECG 77113 GEORGE CHONG JR ROUTINE 3 [facility] W[facility]LEAST P 12 LDS [place] [address] GEORGE VAZQUEZ INFUSION 3 [facility] THERAPY/P INC INC ROPHYLAXI S /DX 1ST TO 1 HR THERAPEUT 82571 GEORGE VAZQUEZ IC 3 [facility] INJECTION INC INC IV PUSH EACH NEW DRUG CREATINE 18843 GEORGE VAZQUEZ KINASE MB 3 [facility] FRACTION INC INC ONLY INJECTION J2405 GEORGE VAZQUEZ 3 [facility] ONDANSETR INC INC ON HCL PER 1 MG COMPREHEN 67600 GEORGE VAZQUEZ SIVE 3 [facility] METABOLIC INC INC PANEL CREATINE 38650 GEORGE VAZQUEZ KINASE 3 [facility] TOTAL INC INC IAADI 78127 GEORGE VAZQUEZ INFLUENZA 3 [facility] B VIRUS INC INC IAADI 25162 GEORGE VAZQUEZ INFFLUENZ 3 [facility] A A VIRUS INC INC ECG 06909 GEORGE VAZQUEZ ROUTINE 3 [facility] ECG INC INC W/LEAST 12 LDS TRCG ONLY W/O I&R BASIC 47078 [facility] METABOLIC 2 DIAGNOSTI DIAGNOSTI [place] [address] [facility] THYROID 2 DIAGNOSTI DIAGNOSTI STIMULATI CS CS NG HORMONE TSH Encounters Encounter Start End Date Code Location Performer Type Date Emergency GEORGE CERVANTES MD (ER) 3 17:16 3 19:14 [facility] EMERGENCY 67266 GEORGE 3 3 [facility] DEPARTMEN INC T VISIT HIGH/URGE NT SEVERITY EMERGENCY 75914 OMAR CERVANTES DEPT 3 3 EMERGENCY BRO VISIT SERVICES HIGH SEVERITY& THREAT [facility] GEORGE - 3 3 MEM HOSP OUTPATIEN INC T OFFICE 58988 Mynor JARRETT 2 2 KODAK CROOKS T VISIT [facility] 15 MINUTES
--- OUTSIDE RECORDS SUMMARY | 2017-07-08 05:46 | External Medical Summary Rpt ---
Author Author , DANE Almendarez DANE Address Unknown Phone [email or web address] Care Team Providers Care In Store Marketing Associate Name Role Phone A Derrick CANDELARIO MD PSC, A Unavailable Unavailable Derrick CANDELARIO MD PSC HELEN QUINN Unavailable Unavailable LARY CERVANTES MD, Unavailable Unavailable HEENA CERVANTES MD [facility] Unavailable Unavailable INC, [facility] Unavailable Unavailable HOSPITAL P, [facility] CAST[facility] JR DWI, CASTILLO Unavailable Unavailable JR [facility] Unavailable Unavailable SERVICES, [facility], Unavailable Unavailable [facility], Unavailable Unavailable [facility] KODAK PARRA Unavailable Unavailable Purpose Continuity of Care Document - 02-26-2012 through 2016 Problems Code Diagnosis DOS Provider Status 401.9 401.9 09-22-2013 [facility] NOS Hospital 4019 UNSPECIFIED 09-22-2013 [facility] P N 558.9 558.9 09-22-2013 [facility] IT NEC 5589 OTH&UNSPEC 09-22-2013 [facility] ITIS&COLITI S 780.79 780.79 OTH 09-22-2013 [facility]&FAT [facility] IGUE [facility] 26461 OTHER 09-22-2013 [facility] P 2449 UNSPECIFIED 08-26-2012 [facility] HYPOTHYROID ISM 88092 CHEST PAIN 02-26-2012 Mynor BARNARDIFIED PSC D72.829 [...] DOS [place] [address] GEORGE VAZQUEZ TROPONIN 3 [facility] QUANTITAT INC INC CLOTILDE BLOOD 97696 GEORGE VAZQUEZ COUNT 3 [facility] COMPLETE INC INC AUTO&AUTO DIFRNTL WBC ECG 38165 GEORGE CHONG JR ROUTINE 3 [facility] W/LEAST P 12 LDS I&[place] [address] GEORGE VAZQUEZ INFUSION 3 [facility] THERAPY/P INC INC ROPHYLAXI S /DX 1ST TO 1 HR THERAPEUT 16565 GEORGE VAZQUEZ IC 3 [facility] INJECTION INC INC IV PUSH EACH NEW DRUG CREATINE 34111 GEORGE VAZQUEZ KINASE MB 3 [facility] FRACTION INC INC ONLY INJECTION J2405 GEORGE VAZQUEZ 3 [facility] ONDANSETR INC INC ON HCL PER 1 MG COMPREHEN 16359 GEORGE VAZQUEZ SIVE 3 [facility] METABOLIC INC INC PANEL CREATINE 14229 GEORGE VAZQUEZ KINASE 3 [facility] TOTAL INC INC IAADI 49638 GEORGE VAZQUEZ INFLUENZA 3 [facility] B VIRUS INC INC IAADI 54292 GEORGE VAZQUEZ INFFLUENZ 3 [facility] A A VIRUS INC INC ECG 56715 GEORGE VAZQUEZ ROUTINE 3 [facility] ECG INC INC W/LEAST 12 LDS TRCG ONLY W/O I&R BASIC 95330 [facility] METABOLIC 2 DIAGNOSTI DIAGNOSTI [place] [address] [facility] THYROID 2 DIAGNOSTI DIAGNOSTI STIMULATI CS CS NG HORMONE TSH Encounters Encounter Start End Date Code Location Performer Type Date Emergency GEORGE CERVANTES MD (ER) 3 17:16 3 19:14 [facility] EMERGENCY 90401 GEORGE 3 3 [facility] DEPARTMEN INC T VISIT HIGH/URGE NT SEVERITY EMERGENCY 75842 OMAR CERVANTES DEPT 3 3 EMERGENCY BRO VISIT SERVICES HIGH SEVERITY& THREAT [facility] GEORGE - 3 3 [facility] OUTPATIEN INC T OFFICE 21735 Mynor JARRETT 2 2 KODAK CROOKS T VISIT [facility] 15 MINUTES
--- OUTSIDE RECORDS SUMMARY | 2017-07-08 05:47 | External Medical Summary Rpt ---
Author Author , IZABELA VELA Address Unknown Phone [email or web address] ([email or web address]).[email or web address] Immunization Name Date Rout CVX Reac Dose Comm Prov Is Faci e tion ent ider Refu lity Give sed n Infl 09- 135 999 Hist D203 No D203 uenz 4-20 oric 45 45 a, 16 al High Info rmat Dose ion - Sour ce Unsp ecif ied
--- OUTSIDE RECORDS SUMMARY | 2017-07-08 05:47 | External Medical Summary Rpt ---
Author Author , DANE Almendarez DANE Address Unknown Phone [email or web address] Care Team Providers Care Personal Care Attendant Name Role Phone A Derrick CANDELARIO MD PSC, Mynor Unavailable Unavailable Derrick CANDELARIO MD PSC HELEN BARTH, HELEN Unavailable Unavailable [facility] Unavailable Unavailable INC, [facility] Unavailable [facility]available HOSPITAL P, [facility] CAST[facility] JR DWI, CASTILLO Unavailable Unavailable [facility] Unavailable Unavailable SERVICES, [facility], Unavailable Unavailable [facility], Unavailable Unavailable [facility] KODAK PARRA Unavailable Unavailable Purpose Continuity of Care Document - 02-26-2012 through 2016 Problems Code Diagnosis DOS Provider Status 4019 UNSPECIFIED 09-22-2013 [facility] P N 5589 OTH&UNSPEC 09-22-2013 [facility] US SERVICES GASTROENTER ITIS&COLITI S 87116 OTHER 09-22-2013 [facility] P 2449 UNSPECIFIED 08-26-2012 [facility] HYPOTHYROID ISM 51185 CHEST PAIN 02-26-2012 Mynor BARNARDIFIED [facility] Procedures Procedure DOS Code Location Performer Comment ECG 41095 GEORGE CHONG JR ROUTINE 3 [facility] W/LEAST P 12 LDS I&[place] [address] GEORGE VAZQUEZ INFUSION 3 [facility] THERAPY/P INC INC ROPHYLAXI S /DX 1ST TO 1 HR THERAPEUT 59002 GEORGE VAZQUEZ IC 3 [facility] INJECTION INC [place] [address] GEORGE VAZQUEZ TROPONIN 3 [facility] QUANTITAT INC INC CLOTILDE BLOOD 21614 GEORGE VAZQUEZ COUNT 3 [facility] COMPLETE INC INC AUTO&AUTO DIFRNTL WBC INJECTION J2405 GEORGE VAZQUEZ 3 [facility] ONDANSETR INC INC ON HCL PER 1 MG CREATINE 89508 GEORGE VAZQUEZ KINASE MB 3 [facility] FRACTION INC INC ONLY COMPREHEN 82566 GEORGE VAZQUEZ SIVE 3 [facility] METABOLIC INC INC PANEL ECG 42560 GEORGE VAZQUEZ ROUTINE 3 [facility] ECG INC INC W/LEAST 12 LDS TRCG ONLY W/O I&R CREATINE 49304 GEORGE VAZQUEZ KINASE 3 [facility] TOTAL INC INC IAADI 38954 GEORGE VAZQUEZ INFLUENZA 3 [facility] B VIRUS INC INC IAADI 36202 GEORGE VAZQUEZ INFFLUENZ 3 [facility] A A VIRUS INC INC BASIC 89249 [facility] METABOLIC 2 DIAGNOSTI DIAGNOSTI [place] [address] [facility] THYROID 2 DIAGNOSTI DIAGNOSTI STIMULATI CS CS NG HORMONE TSH Encounters Encounter Start End Date Code Location Performer Type Date EMERGENCY 99248 GEORGE 3 3 [facility] DEPARTMEN INC T VISIT HIGH/URGE NT SEVERITY EMERGENCY 57102 OMAR CERVANTES DEPT 3 3 EMERGENCY BRO VISIT SERVICES HIGH SEVERITY& THREAT [facility] GEORGE - 3 3 MEM H[facility] OUTPATIEN INC T OFFICE 78975 Mynor JARRETT 2 2 KODAK CROOKS T VISIT [facility] 15 MINUTES
--- OUTSIDE RECORDS SUMMARY | 2017-07-08 05:47 | External Medical Summary Rpt ---
Author Author , DANE Almendarez DANE Address Unknown Phone [email or web address] Care Team Providers Care Quality Assistant Name Role Phone A Derrick CANDELARIO MD PSC, Mynor Unavailable Unavailable Derrick CANDELARIO MD PSC HELEN BARTH, HELEN Unavailable Unavailable [facility] Unavailable Unavailable INC, [facility] Unavailable Unavailable HOSPITAL P, [facility] JR DWI, CASTILLO Unavailable Unavailable [facility] Unavailable Unavailable SERVICES, [facility], Unavailable Unavailable [facility], Unavailable Unavailable [facility] KODAK PARRA Unavailable Unavailable Purpose Continuity of Care Document - 02-26-2012 through 2016 Problems Code Diagnosis DOS Provider Status 4019 UNSPECIFIED 09-22-2013 [facility] P N 5589 OTH&UNSPEC 09-22-2013 [facility] US SERVICES GASTROENTER ITIS&COLITI S 90893 OTHER 09-22-2013 [facility] P 2449 UNSPECIFIED 08-26-2012 [facility] HYPOTHYROID ISM 17121 CHEST PAIN 02-26-2012 Mynor BARNARDIFIED [facility] Procedures Procedure DOS Code Location Performer Comment ECG 66856 GEORGE CHONG JR ROUTINE 3 [facility] W/LEAST P 12 LDS I&[place] [address] GEORGE VAZQUEZ INFUSION 3 [facility] THERAPY/P INC INC ROPHYLAXI S /DX 1ST TO 1 HR THERAPEUT 74343 GEORGE VAZQUEZ IC 3 [facility] INJECTION INC [place] [address] GEORGE VAZQUEZ TROPONIN 3 [facility] QUANTITAT INC INC CLOTILDE BLOOD 92957 GEORGE VAZQUEZ COUNT 3 [facility] COMPLETE INC INC AUTO&AUTO DIFRNTL WBC INJECTION J2405 GEORGE VAZQUEZ 3 [facility] ONDANSETR INC INC ON HCL PER 1 MG CREATINE 80405 GEORGE VAZQUEZ KINASE MB 3 [facility] FRACTION INC INC ONLY COMPREHEN 71179 GEORGE VAZQUEZ SIVE 3 [facility] METABOLIC INC INC PANEL ECG 17264 GEORGE VAZQUEZ ROUTINE 3 [facility] ECG INC INC W/LEAST 12 LDS TRCG ONLY W/O I&R CREATINE 68475 GEORGE VAZQUEZ KINASE 3 [facility] TOTAL INC INC IAADI 13426 GEORGE VAZQUEZ INFLUENZA 3 [facility] B VIRUS INC INC IAADI 24006 GEORGE VAZQUEZ INFFLUENZ 3 [facility] A A VIRUS INC INC BASIC 15581 [facility] MET[facility]OLIC 2 DIAGNOSTI DIAGNOSTI [place] [address] [facility] THYROID 2 DIAGNOSTI DIAGNOSTI STIMULATI CS CS NG HORMONE TSH Encounters Encounter Start End Date Code Location Performer Type Date EMERGENCY 58057 GEORGE 3 3 [facility] DEPARTMEN INC T VISIT HIGH/URGE NT SEVERITY EMERGENCY 89373 OMAR CERVANTES DEPT 3 3 EMERGENCY BRO VISIT SERVICES HIGH SEVERITY& THREAT [facility] GEORGE - 3 3 [facility] OUTPATIEN INC T OFFICE 49657 Mynor JARRETT 2 2 KODAK CROOKS T VISIT [facility] 15 MINUTES
--- OUTSIDE RECORDS SUMMARY | 2017-07-08 05:47 | External Medical Summary Rpt ---
Author Author , IZABELA VELA Address Unknown Phone [email or web address] Immunization Name Date Rout CVX Reac Dose Comm Prov Is Faci e tion ent ider Refu lity Give sed n Infl 09- 135 999 Hist D203 No D203 uenz 4-20 oric 45 45 a, 16 al High Info rmat Dose ion - Sour ce Unsp ecif ied
--- OUTSIDE RECORDS SUMMARY | 2017-07-08 05:48 | External Medical Summary Rpt ---
Author Author D[employer] Vent[employer], [employer] Organization [employer] Address Unknown Phone Unavailable Results Basic metabolic panel in Blood Observa Value Referen Units Interpr Notes Date tion ce etation Range Urea 7 - 18 mg/dL Low No Sep 20 nitrogen informati 2017 6:05 [Mass/vol on in AM ume] in source Serum or data Plasma Calcium 8.5 - mg/dL Normal No Sep 20 [Mass/vol 10.1 informati 2017 6:05 ume] in on in AM Serum or source Plasma data Chloride 98 - 107 mmoL/L Normal No Sep 20 [Moles/vo informati 2017 6:05 lume] in on in AM Serum or source Plasma data Carbon 21.0 - mmoL/L Normal No Sep 20 dioxide, 32.0 informati 2017 6:05 total on in AM [Moles/vo source lume] in data Serum or Plasma Creatinin 0.55 - mg/dL Low No Sep 20 e 1.02 informati 2017 6:05 [Mass/vol on in AM ume] in source Serum or data Plasma Creatinin 50 - 200 ML/MIN Normal No Sep 20 e renal informati 2017 6:05 clearance on in AM source predicted data by Cockcroft -Gault formula Estimated 59- ML/MIN No REFERENCE Sep 20 informati RANGE: 2017 6:05 glomerula on in >60 AM r source ML/MIN/1. filtratio data 73 SQUARE n rate METERSIf (GF this patient is -A merican, then multiply theresult by 1.210. Glucose 74 - 106 mg/dL High No Sep 20 [Mass/vol informati 2017 6:05 ume] in on in AM Serum or source Plasma data Potassium 3.5 - 5.1 mmoL/L Normal No Sep 20 informati 2017 6:05 [Moles/vo on in AM lume] in source Serum or data Plasma Sodium 136 - 145 mmoL/L Normal No Sep 20 [Moles/vo informati 2017 6:05 lume] in on in AM Serum or source Plasma data CBC W Auto Differential panel in Blood Observa Value Referen Units Interpr Notes Date tion ce etation Range Basophils 0 - 0.2 K/MM3 Normal No Sep 20 informati 2017 6:05 [#/volume on in AM ] in source Blood by data Automated count Basophils 0.1 - 2.0 % Normal No Sep 20 /100 informati 2017 6:05 leukocyte on in AM s in source Blood by data Automated count Eosinophi 0.0 - 0.4 K/mm3 Normal No Sep 20 ls informati 2017 6:05 [#/volume on in AM ] in source Blood by data Automated count Eosinophi 0.1 - % Normal No Sep 20 ls/100 12.0 informati 2017 6:05 leukocyte on in AM s in source Blood by data Automated count Granulocy 1.8 - 7.8 K/mm3 Normal No Sep 20 moses informati 2017 6:05 [#/volume on in AM ] in source Blood by data Automated count Granulocy 37.0 - % Normal No Sep 20 moses/100 80.0 informati 2016 6:05 leukocyte on in AM s in source Blood by data Automated count Hematocri 37.0 - % Low No Sep 20 t [Volume 47.0 informati 2017 6:05 on in AM Fraction] source of Blood data Hemoglobi 12.2 - g/dL Low No Sep 20 n 16.2 informati 2017 6:05 [Mass/vol on in AM ume] in source Blood data Lymphocyt 0.7 - 4.5 K/mm3 Normal No Sep 20 es informati 2017 6:05 [#/volume on in AM ] in source Unspecifi data ed specimen by Automated count Lymphocyt 10 - 50.0 % Normal No Sep 20 es informati 2017 6:05 [#/volume on in AM ] in source Unspecifi data ed specimen by Automated count Erythrocy 27 - 31.2 pg Normal No Sep 20 te mean informati 2017 6:05 corpuscul on in AM ar source hemoglobi data n [Entitic mass] Erythrocy 31.8 - g/dl Normal No Sep 20 te mean 35.4 informati 2017 6:05 corpuscul on in AM ar source hemoglobi data n concentra tion [Mass/vol ume] by Automated count Erythrocy 82.2 - fl Normal No Sep 20 te mean 97.8 informati 2017 6:05 corpuscul on in AM ar volume source [Entitic data volume] by Automated count Monocytes 0.1 - 1.0 K/mm3 Normal No Sep 20 informati 2017 6:05 [#/volume on in AM ] in source Blood by data Automated count Monocytes 1.7 - 9.3 % Normal No Sep 20 /100 informati 2017 6:05 leukocyte on in AM s in source Blood by data Automated count Platelet 7.4 - fl Normal No Sep 20 mean 10.4 informati 2017 6:05 volume on in AM [Entitic source volume] data in Blood by Automated count Platelets 142 - 424 K/mm3 No No Sep 20 informati informati 2017 6:05 [#/volume on in on in AM ] in source source Blood data data Erythrocy 4.2 - 5.4 M/mm3 Low No Sep 20 moses informati 2017 6:05 [#/volume on in AM ] in source Amniotic data fluid Erythrocy 11.5 - % Normal No Sep 20 te 17.5 informati 2017 6:05 distribut on in AM ion width source [Entitic data volume] by Automated count Leukocyte 4.8 - K/MM3 No No Sep 20 s 10.8 informati informati 2017 6:05 [#/volume on in on in AM ] in source source Blood data data Basic metabolic panel in Blood Observa Value Referen Units Interpr Notes Date tion ce etation Range Urea 7 - 18 mg/dL Low No Sep 18 nitrogen informati 2017 6:01 [Mass/vol on in AM ume] in source Serum or data Plasma Calcium 8.5 - mg/dL Low No Sep 18 [Mass/vol 10.1 informati 2017 6:01 ume] in on in AM Serum or source Plasma data Chloride 98 - 107 mmoL/L High No Sep 18 [Moles/vo informati 2017 6:01 lume] in on in AM Serum or source Plasma data Carbon 21.0 - mmoL/L Normal No Sep 18 dioxide, 32.0 informati 2017 6:01 total on in AM [Moles/vo source lume] in data Serum or Plasma Creatinin 0.55 - mg/dL Low No Sep 18 e 1.02 informati 2017 6:01 [Mass/vol on in AM ume] in source Serum or data Plasma Creatinin 50 - 200 ML/MIN Normal No Sep 18 e renal informati 2017 6:01 clearance on in AM source predicted data by Cockcroft -Gault formula Estimated 59- ML/MIN No REFERENCE Sep 18 informati RANGE: 2017 6:01 glomerula on in >60 AM r source ML/MIN/1. filtratio data 73 SQUARE n rate METERSIf (GF this patient is -A merican, then multiply theresult by 1.210. Glucose 74 - 106 mg/dL High No Sep 18 [Mass/vol informati 2017 6:01 ume] in on in AM Serum or source Plasma data Potassium 3.5 - 5.1 mmoL/L Normal No Sep 18 informati 2017 6:01 [Moles/vo on in AM lume] in source Serum or data Plasma Sodium 136 - 145 mmoL/L Normal No Sep 18 [Moles/vo informati 2017 6:01 lume] in on in AM Serum or source Plasma data CBC W Auto Differential panel in Blood Observa Value Referen Units Interpr Notes Date tion ce etation Range Basophils 0 - 0.2 K/MM3 Normal No Sep 18 informati 2017 6:01 [#/volume on in AM ] in source Blood by data Automated count Basophils 0.1 - 2.0 % Normal No Sep 18 /100 informati 2017 6:01 leukocyte on in AM s in source Blood by data Automated count Eosinophi 0.0 - 0.4 K/mm3 Normal No Sep 18 ls informati 2017 6:01 [#/volume on in AM ] in source Blood by data Automated count Eosinophi 0.1 - % Normal No Sep 18 ls/100 12.0 informati 2017 6:01 leukocyte on in AM s in source Blood by data Automated count Granulocy 1.8 - 7.8 K/mm3 Normal No Sep 18 moses informati 2017 6:01 [#/volume on in AM ] in source Blood by data Automated count Granulocy 37.0 - % Normal No Sep 18 moses/100 80.0 informati 2017 6:01 leukocyte on in AM s in source Blood by data Automated count Hematocri 37.0 - % Low No Sep 18 t [Volume 47.0 informati 2017 6:01 on in AM Fraction] source of Blood data Hemoglobi 12.2 - g/dL Low No Sep 18 n 16.2 informati 2017 6:01 [Mass/vol on in AM ume] in source Blood data Lymphocyt 0.7 - 4.5 K/mm3 Normal No Sep 18 es informati 2017 6:01 [#/volume on in AM ] in source Unspecifi data ed specimen by Automated count Lymphocyt 10 - 50.0 % Normal No Sep 18 es informati 2017 6:01 [#/volume on in AM ] in source Unspecifi data ed specimen by Automated count Erythrocy 27 - 31.2 pg Normal No Sep 18 te mean informati 2017 6:01 corpuscul on in AM ar source hemoglobi data n [Entitic mass] Erythrocy 31.8 - g/dl Normal No Sep 18 te mean 35.4 informati 2017 6:01 corpuscul on in AM ar source hemoglobi data n concentra tion [Mass/vol ume] by Automated count Erythrocy 82.2 - fl Normal No Sep 18 te mean 97.8 informati 2017 6:01 corpuscul on in AM ar volume source [Entitic data volume] by Automated count Monocytes 0.1 - 1.0 K/mm3 Normal No Sep 18 informati 2017 6:01 [#/volume on in AM ] in source Blood by data Automated count Monocytes 1.7 - 9.3 % Normal No Sep 18 /100 informati 2017 6:01 leukocyte on in AM s in source Blood by data Automated count Platelet 7.4 - fl Normal No Sep 18 mean 10.4 informati 2017 6:01 volume on in AM [Entitic source volume] data in Blood by Automated count Platelets 142 - 424 K/mm3 Normal No Sep 18 informati 2017 6:01 [#/volume on in AM ] in source Blood data Erythrocy 4.2 - 5.4 M/mm3 Low No Sep 18 moses informati 2017 6:01 [#/volume on in AM ] in source Amniotic data fluid Erythrocy 11.5 - % Normal No Sep 18 te 17.5 informati 2017 6:01 distribut on in AM ion width source [Entitic data volume] by Automated count Leukocyte 4.8 - K/MM3 No No Sep 18 s 10.8 informati informati 2017 6:01 [#/volume on in on in AM ] in source source Blood data data Glucose [Mass/volume] in Capillary blood by Glucometer Observa Value Referen Units Interpr Notes Date tion ce etation Range Glucose 70 - 110 mg/dl Normal No Sep 17 [Mass/vol informati 2017 6:29 ume] in on in PM Capillary source blood by data Glucomete r Glucose [Mass/volume] in Capillary blood by Glucometer Observa Value Referen Units Interpr Notes Date tion ce etation Range Glucose 70 - 110 mg/dl Normal No Sep 17 [Mass/vol informati 2016 2:26 ume] in on in PM Capillary source blood by data Glucomete r Glucose [Mass/volume] in Capillary blood by Glucometer Observa Value Referen Units Interpr Notes Date tion ce etation Range Glucose 70 - 110 mg/dl No No Sep 17 [Mass/vol informati informati 2016 ume] in on in on in 11:13 AM Capillary source source blood by data data Glucomete r Glucose [Mass/volume] in Capillary blood by Glucometer Observa Value Referen Units Interpr Notes Date tion ce etation Range Glucose 70 - 110 mg/dl Low No Sep 17 [Mass/vol informati 2016 ume] in on in 10:34 AM Capillary source blood by data Glucomete r CBC W Auto Differential panel in Blood Observa Value Referen Units Interpr Notes Date tion ce etation Range Basophils 0 - 0.2 K/MM3 Normal No Sep 17 informati 2017 7:25 [#/volume on in AM ] in source Blood by data Automated count Basophils 0.1 - 2.0 % Normal No Sep 17 /100 informati 2017 7:25 leukocyte on in AM s in source Blood by data Automated count Eosinophi 0.0 - 0.4 K/mm3 Normal No Sep 17 ls informati 2016 7:25 [#/volume on in AM ] in source Blood by data Automated count Eosinophi 0.1 - % Normal No Sep 17 ls/100 12.0 informati 2016 7:25 leukocyte on in AM s in source Blood by data Automated count Granulocy 1.8 - 7.8 K/mm3 Normal No Sep 17 moses informati 2017 7:25 [#/volume on in AM ] in source Blood by data Automated count Granulocy 37.0 - % Normal No Sep 17 moses/100 80.0 informati 2016 7:25 leukocyte on in AM s in source Blood by data Automated count Hematocri 37.0 - % Low No Sep 17 t [Volume 47.0 informati 2016 7:25 on in AM Fraction] source of Blood data Hemoglobi 12.2 - g/dL Low No Sep 17 n 16.2 informati 2017 7:25 [Mass/vol on in AM ume] in source Blood data Lymphocyt 0.7 - 4.5 K/mm3 Normal No Sep 17 es informati 2017 7:25 [#/volume on in AM ] in source Unspecifi data ed specimen by Automated count Lymphocyt 10 - 50.0 % Normal No Sep 17 es informati 2017 7:25 [#/volume on in AM ] in source Unspecifi data ed specimen by Automated count Erythrocy 27 - 31.2 pg Normal No Sep 17 te mean informati 2017 7:25 corpuscul on in AM ar source hemoglobi data n [Entitic mass] Erythrocy 31.8 - g/dl Normal No Sep 17 te mean 35.4 informati 2017 7:25 corpuscul on in AM ar source hemoglobi data n concentra tion [Mass/vol ume] by Automated count Erythrocy 82.2 - fl Normal No Sep 17 te mean 97.8 informati 2017 7:25 corpuscul on in AM ar volume source [Entitic data volume] by Automated count Monocytes 0.1 - 1.0 K/mm3 Normal No Sep 17 informati 2017 7:25 [#/volume on in AM ] in source Blood by data Automated count Monocytes 1.7 - 9.3 % Normal No Sep 17 /100 informati 2017 7:25 leukocyte on in AM s in source Blood by data Automated count Platelet 7.4 - fl Normal No Sep 17 mean 10.4 informati 2017 7:25 volume on in AM [Entitic source volume] data in Blood by Automated count Platelets 142 - 424 K/mm3 Normal No Sep 17 informati 2017 7:25 [#/volume on in AM ] in source Blood data Erythrocy 4.2 - 5.4 M/mm3 Low No Sep 17 moses informati 2017 7:25 [#/volume on in AM ] in source Amniotic data fluid Erythrocy 11.5 - % Normal No Sep 17 te 17.5 informati 2017 7:25 distribut on in AM ion width source [Entitic data volume] by Automated count Leukocyte 4.8 - K/MM3 Normal No Sep 17 s 10.8 informati 2016 7:25 [#/volume on in AM ] in source Blood data Basic metabolic panel in Blood Observa Value Referen Units Interpr Notes Date tion ce etation Range Urea 7 - 18 mg/dL Normal No Sep 17 nitrogen informati 2017 7:25 [Mass/vol on in AM ume] in source Serum or data Plasma Calcium 8.5 - mg/dL Normal No Sep 17 [Mass/vol 10.1 informati 2016 7:25 ume] in on in AM Serum or source Plasma data Chloride 98 - 107 mmoL/L Normal No Sep 17 [Moles/vo informati 2017 7:25 lume] in on in AM Serum or source Plasma data Carbon 21.0 - mmoL/L Normal No Sep 17 dioxide, 32.0 informati 2017 7:25 total on in AM [Moles/vo source lume] in data Serum or Plasma Creatinin 0.55 - mg/dL Low No Sep 17 e 1.02 informati 2017 7:25 [Mass/vol on in AM ume] in source Serum or data Plasma Creatinin 50 - 200 ML/MIN Normal No Sep 17 e renal informati 2016 7:25 clearance on in AM source predicted data by Cockcroft -Gault formula Estimated 59- ML/MIN No REFERENCE Sep 17 informati RANGE: 2017 7:25 glomerula on in >60 AM r source ML/MIN/1. filtratio data 73 SQUARE n rate METERSIf (GF this patient is -A merican, then multiply theresult by 1.210. Glucose 74 - 106 mg/dL Low No Sep 17 [Mass/vol informati 2016 7:25 ume] in on in AM Serum or source Plasma data Potassium 3.5 - 5.1 mmoL/L Low No Sep 17 informati 2016 7:25 [Moles/vo on in AM lume] in source Serum or data Plasma Sodium 136 - 145 mmoL/L Normal No Sep 17 [Moles/vo informati 2017 7:25 lume] in on in AM Serum or source Plasma data Magnesium [Moles/volume] in Unspecified specimen Observa Value Referen Units Interpr Notes Date tion ce etation Range Magnesium 1.4 - 2.2 mg/dL Normal No Sep 17 informati 2016 7:25 [Moles/vo on in AM lume] in source Unspecifi data ed specimen CBC W Auto Differential panel in Blood Observa Value Referen Units Interpr Notes Date tion ce etation Range Basophils 0 - 0.2 K/MM3 Normal No Sep 16 informati 2017 6:01 [#/volume on in AM ] in source Blood by data Automated count Basophils 0.1 - 2.0 % Normal No Sep 16 /100 informati 2017 6:01 leukocyte on in AM s in source Blood by data Automated count Eosinophi 0.0 - 0.4 K/mm3 Normal No Sep 16 ls informati 2017 6:01 [#/volume on in AM ] in source Blood by data Automated count Eosinophi 0.1 - % Normal No Sep 16 ls/100 12.0 informati 2017 6:01 leukocyte on in AM s in source Blood by data Automated count Granulocy 1.8 - 7.8 K/mm3 High No Sep 16 moses informati 2017 6:01 [#/volume on in AM ] in source Blood by data Automated count Granulocy 37.0 - % Normal No Sep 16 moses/100 80.0 informati 2017 6:01 leukocyte on in AM s in source Blood by data Automated count Hematocri 37.0 - % Low No Sep 16 t [Volume 47.0 informati 2017 6:01 on in AM Fraction] source of Blood data Hemoglobi 12.2 - g/dL Low No Sep 16 n 16.2 informati 2017 6:01 [Mass/vol on in AM ume] in source Blood data Lymphocyt 0.7 - 4.5 K/mm3 Normal No Sep 16 es informati 2017 6:01 [#/volume on in AM ] in source Unspecifi data ed specimen by Automated count Lymphocyt 10 - 50.0 % Normal No Sep 16 es informati 2017 6:01 [#/volume on in AM ] in source Unspecifi data ed specimen by Automated count Erythrocy 27 - 31.2 pg High No Sep 16 te mean informati 2017 6:01 corpuscul on in AM ar source hemoglobi data n [Entitic mass] Erythrocy 31.8 - g/dl Normal No Sep 16 te mean 35.4 informati 2017 6:01 corpuscul on in AM ar source hemoglobi data n concentra tion [Mass/vol ume] by Automated count Erythrocy 82.2 - fl Normal No Sep 16 te mean 97.8 informati 2017 6:01 corpuscul on in AM ar volume source [Entitic data volume] by Automated count Monocytes 0.1 - 1.0 K/mm3 Normal No Sep 16 informati 2017 6:01 [#/volume on in AM ] in source Blood by data Automated count Monocytes 1.7 - 9.3 % Normal No Sep 16 /100 informati 2017 6:01 leukocyte on in AM s in source Blood by data Automated count Platelet 7.4 - fl Normal No Sep 16 mean 10.4 informati 2017 6:01 volume on in AM [Entitic source volume] data in Blood by Automated count Platelets 142 - 424 K/mm3 No No Sep 16 informati informati 2017 6:01 [#/volume on in on in AM ] in source source Blood data data Erythrocy 4.2 - 5.4 M/mm3 Low No Sep 16 moses informati 2017 6:01 [#/volume on in AM ] in source Amniotic data fluid Erythrocy 11.5 - % Normal No Sep 16 te 17.5 informati 2017 6:01 distribut on in AM ion width source [Entitic data volume] by Automated count Leukocyte 4.8 - K/MM3 High No Sep 16 s 10.8 informati 2017 6:01 [#/volume on in AM ] in source Blood data Basic metabolic panel in Blood Observa Value Referen Units Interpr Notes Date tion ce etation Range Urea 7 - 18 mg/dL No No Sep 16 nitrogen informati informati 2017 6:01 [Mass/vol on in on in AM ume] in source source Serum or data data Plasma Calcium 8.5 - mg/dL Low No Sep 16 [Mass/vol 10.1 informati 2017 6:01 ume] in on in AM Serum or source Plasma data Chloride 98 - 107 mmoL/L High No Sep 16 [Moles/vo informati 2017 6:01 lume] in on in AM Serum or source Plasma data Carbon 21.0 - mmoL/L Normal No Sep 16 dioxide, 32.0 informati 2017 6:01 total on in AM [Moles/vo source lume] in data Serum or Plasma Creatinin 0.55 - mg/dL Normal No Sep 16 e 1.02 informati 2017 6:01 [Mass/vol on in AM ume] in source Serum or data Plasma Creatinin 50 - 200 ML/MIN Normal No Sep 16 e renal informati 2017 6:01 clearance on in AM source predicted data by Cockcroft -Gault formula Estimated 59- ML/MIN No REFERENCE Sep 16 informati RANGE: 2017 6:01 glomerula on in >60 AM r source ML/MIN/1. filtratio data 73 SQUARE n rate METERSIf (GF this patient is -A merican, then multiply theresult by 1.210. Glucose 74 - 106 mg/dL Normal No Sep 16 [Mass/vol informati 2017 6:01 ume] in on in AM Serum or source Plasma data Potassium 3.5 - 5.1 mmoL/L Low No Sep 16 informati 2017 6:01 [Moles/vo on in AM lume] in source Serum or data Plasma Sodium 136 - 145 mmoL/L Normal No Sep 16 [Moles/vo informati 2017 6:01 lume] in on in AM Serum or source Plasma data CBC W Auto Differential panel in Blood Observa Value Referen Units Interpr Notes Date tion ce etation Range Granulocy 1.8 - 7.8 K/mm3 High No Sep 15 moses informati 2017 2:00 [#/volume on in PM ] in source Blood by data Automated count Granulocy 37.0 - % High No Sep 15 moses/100 80.0 informati 2017 2:00 leukocyte on in PM s in source Blood by data Automated count Hematocri 37.0 - % Normal No Sep 15 t [Volume 47.0 informati 2017 2:00 on in PM Fraction] source of Blood data Hemoglobi 12.2 - g/dL Low No Sep 15 n 16.2 informati 2017 2:00 [Mass/vol on in PM ume] in source Blood data Lymphocyt 0.7 - 4.5 K/mm3 Normal No Sep 15 es informati 2017 2:00 [#/volume on in PM ] in source Unspecifi data ed specimen by Automated count Lymphocyt 10 - 50.0 % Normal No Sep 15 es informati 2017 2:00 [#/volume on in PM ] in source Unspecifi data ed specimen by Automated count Erythrocy 27 - 31.2 pg Normal No Sep 15 te mean informati 2017 2:00 corpuscul on in PM ar source hemoglobi data n [Entitic mass] Erythrocy 31.8 - g/dl Low No Sep 15 te mean 35.4 informati 2017 2:00 corpuscul on in PM ar source hemoglobi data n concentra tion [Mass/vol ume] by Automated count Erythrocy 82.2 - fL Normal No Sep 15 te mean 97.8 informati 2016 2:00 corpuscul on in PM ar volume source [Entitic data volume] by Automated count Monocytes 0.1 - 1.0 K/mm3 Normal No Sep 15 inform2016 2:00 [#/volume on in PM ] in source Blood by data Automated count Monocytes 1.7 - 9.3 % Normal No Sep 15 /100 informati 2016 2:00 leukocyte on in PM s in source Blood by data Automated count Platelets 142 - 424 K/mm3 Normal No Sep 15 inform2016 2:00 [#/volume on in PM ] in source Blood data Erythrocy 4.2 - 5.4 M/mm3 Low No Sep 15 moses informati 2016 2:00 [#/volume on in PM ] in source Amniotic data fluid Erythrocy 11.5 - % Normal No Sep 15 te 17.5 informati 2016 2:00 distribut on in PM ion width source [Entitic data volume] by Automated count Leukocyte 4.8 - K/mm3 High No Sep 15 s 10.8 informati 2016 2:00 [#/volume on in PM ] in source Blood data Differential panel, method unspecified - Observa Value Referen Units Interpr Notes Date tion ce etation Range Neutrophi 0 - 8 % Normal No Sep 15 ls.band informati 2016 2:00 form/100 on in PM leukocyte source s in data Blood by Automated count LYMPH 14 10 - 50 % Normal No Sep 15 2016 tion in 2:00 PM source data Monocytes 2 - 9 % Normal No Sep 15 /100 informati 2016 2:00 leukocyte on in PM s in source Blood by data Automated count Platele NORMAL No No No No Sep 15 ts informa informa informa informa 2016 [Presen tion in tion in tion in tion in 2:00 PM ce] in source source source source Blood data data data data by Light microsc opy Neutrophi 42 - 76 % High No Sep 15 ls informati 2016 2:00 [#/volume on in PM ] in source Blood by data Automated count Erythro NORMAL No No No No Sep 15 cyte informa informa informa informa 2017 morphol tion in tion in tion in tion in 2:00 PM ogy source source source source finding data data data data [Identi fier] in Blood Cells No #CELLS No No Sep 15 Counted informati informati informati 2017 2:00 Total [#] on in on in on in PM in Blood source source source data data data Lactate [Moles/volume] in Serum or Plasma Observa Value Referen Units Interpr Notes Date tion ce etation Range Lactate 0.4 - 2.0 MMOL/L High An Sep 15 [Moles/vo elevated 2017 lume] in Lactic 10:12 AM Serum or Acid is Plasma suggestiv e of sepsis and shouldbe repeated within 6 hours of initial testing. Hepatic function 2000 panel in Serum or Plasma Observa Value Referen Units Interpr Notes Date tion ce etation Range Albumin 3.4 - 5.0 gm/dL Low No Sep 15 [Mass/vol informati 2017 6:05 ume] in on in AM Serum or source Plasma data Alkaline 46 - 116 U/L Normal No Sep 15 phosphata informati 2017 6:05 se on in AM [Enzymati source c data activity/ volume] in Serum or Plasma Bilirubin 0.0 - 0.2 mg/dL Normal No Sep 15 .direct informati 2017 6:05 [Mass/vol on in AM ume] in source Serum or data Plasma Bilirubin 0 - 0.9 mg/dL Normal No Sep 15 .indirect informati 2017 6:05 on in AM [Mass/vol source ume] in data Serum or Plasma Bilirubin 0.2 - 1.0 mg/dL Normal No Sep 15 .total informati 2017 6:05 [Mass/vol on in AM ume] in source Serum or data Plasma Aspartate 15 - 37 U/L Normal No Sep 15 informati 2017 6:05 aminotran on in AM sferase source [Enzymati data c activity/ volume] in Serum or Plasma Alanine 12 - 78 U/L No No Sep 15 aminotran informati informati 2017 6:05 sferase on in on in AM [Enzymati source source c data data activity/ volume] in Serum or Plasma Protein 6.4 - 8.2 gm/dL Low No Sep 15 [Mass/vol informati 2017 6:05 ume] in on in AM Serum or source Plasma data Basic metabolic panel in Blood Observa Value Referen Units Interpr Notes Date tion ce etation Range Urea 7 - 18 mg/dL Normal No Sep 15 nitrogen informati 2017 6:05 [Mass/vol on in AM ume] in source Serum or data Plasma Calcium 8.5 - mg/dL Low No Sep 15 [Mass/vol 10.1 informati 2017 6:05 ume] in on in AM Serum or source Plasma data Chloride 98 - 107 mmoL/L Normal No Sep 15 [Moles/vo informati 2017 6:05 lume] in on in AM Serum or source Plasma data Carbon 21.0 - mmoL/L Normal No Sep 15 dioxide, 32.0 informati 2017 6:05 total on in AM [Moles/vo source lume] in data Serum or Plasma Creatinin 0.55 - mg/dL No No Sep 15 e 1.02 informati informati 2017 6:05 [Mass/vol on in on in AM ume] in source source Serum or data data Plasma Creatinin 50 - 200 ML/MIN No No Sep 15 e renal informati informati 2017 6:05 clearance on in on in AM source source predicted data data by Cockcroft -Gault formula Estimated 59- ML/MIN No REFERENCE Sep 15 informati RANGE: 2017 6:05 glomerula on in >60 AM r source ML/MIN/1. filtratio data 73 SQUARE n rate METERSIf (GF this patient is -A merican, then multiply theresult by 1.210. Glucose 74 - 106 mg/dL High No Sep 15 [Mass/vol informati 2017 6:05 ume] in on in AM Serum or source Plasma data Potassium 3.5 - 5.1 mmoL/L Normal No Sep 15 informati 2016 6:05 [Moles/vo on in AM lume] in source Serum or data Plasma Sodium 136 - 145 mmoL/L Normal No Sep 15 [Moles/vo informati 2017 6:05 lume] in on in AM Serum or source Plasma data CBC W Auto Differential panel in Blood Observa Value Referen Units Interpr Notes Date tion ce etation Range Basophils 0 - 0.2 K/MM3 Normal No Sep 15 informati 2017 6:05 [#/volume on in AM ] in source Blood by data Automated count Basophils 0.1 - 2.0 % Normal No Sep 15 /100 informati 2017 6:05 leukocyte on in AM s in source Blood by data Automated count Eosinophi 0.0 - 0.4 K/mm3 Normal No Sep 15 ls informati 2017 6:05 [#/volume on in AM ] in source Blood by data Automated count Eosinophi 0.1 - % Normal No Sep 15 ls/100 12.0 informati 2017 6:05 leukocyte on in AM s in source Blood by data Automated count Granulocy 1.8 - 7.8 K/mm3 High No Sep 15 moses informati 2017 6:05 [#/volume on in AM ] in source Blood by data Automated count Granulocy 37.0 - % High No Sep 15 moses/100 80.0 informati 2017 6:05 leukocyte on in AM s in source Blood by data Automated count Hematocri 37.0 - % Normal No Sep 15 t [Volume 47.0 informati 2017 6:05 on in AM Fraction] source of Blood data Hemoglobi 12.2 - g/dL Normal No Sep 15 n 16.2 informati 2017 6:05 [Mass/vol on in AM ume] in source Blood data Lymphocyt 0.7 - 4.5 K/mm3 Normal No Sep 15 es informati 2017 6:05 [#/volume on in AM ] in source Unspecifi data ed specimen by Automated count Lymphocyt 10 - 50.0 % Normal No Sep 15 es informati 2016 6:05 [#/volume on in AM ] in source Unspecifi data ed specimen by Automated count Erythrocy 27 - 31.2 pg Normal No Sep 15 te mean informati 2017 6:05 corpuscul on in AM ar source hemoglobi data n [Entitic mass] Erythrocy 31.8 - g/dl Normal No Sep 15 te mean 35.4 informati 2017 6:05 corpuscul on in AM ar source hemoglobi data n concentra tion [Mass/vol ume] by Automated count Erythrocy 82.2 - fl Normal No Sep 15 te mean 97.8 informati 2017 6:05 corpuscul on in AM ar volume source [Entitic data volume] by Automated count Monocytes 0.1 - 1.0 K/mm3 Normal No Sep 15 informati 2017 6:05 [#/volume on in AM ] in source Blood by data Automated count Monocytes 1.7 - 9.3 % Normal No Sep 15 /100 informati 2017 6:05 leukocyte on in AM s in source Blood by data Automated count Platelet 7.4 - fl Normal No Sep 15 mean 10.4 informati 2017 6:05 volume on in AM [Entitic source volume] data in Blood by Automated count Platelets 142 - 424 K/mm3 Normal No Sep 15 informati 2017 6:05 [#/volume on in AM ] in source Blood data Erythrocy 4.2 - 5.4 M/mm3 Normal No Sep 15 moses informati 2017 6:05 [#/volume on in AM ] in source Amniotic data fluid Erythrocy 11.5 - % Normal No Sep 15 te 17.5 informati 2017 6:05 distribut on in AM ion width source [Entitic data volume] by Automated count Leukocyte 4.8 - K/MM3 High No Sep 15 s 10.8 informati 2017 6:05 [#/volume on in AM ] in source Blood data Lactate [Moles/volume] in Blood Observa Value Referen Units Interpr Notes Date tion ce etation Range Lactate 0.4 - 2.0 mmol/L High An Sep 15 [Moles/vo elevated 2017 6:05 lume] in Lactic AM Blood Acid is suggestiv e of sepsis and shouldbe repeated within 6 hours of initial testing. Hemoglobin & Hematocrit panel in Blood Observa Value Referen Units Interpr Notes Date tion ce etation Range Hematocri 37.0 - % Normal No Sep 14 t [Volume 47.0 informati 2017 8:55 on in PM Fraction] source of Blood data Hemoglobi 12.2 - g/dL No No Sep 14 n 16.2 informati informati 2017 8:55 [Mass/vol on in on in PM ume] in source source Blood data data Blood type & Crossmatch panel in Blood Observa Value Referen Units Interpr Notes Date tion ce etation Range Hold? Y Major COMPAT No No No No Sep 14 crossma informa informa informa informa 2017 tch tion in tion in tion in tion in 6:25 PM [interp source source source source retatio data data data data n] Major COMPAT No No No No Sep 14 crossma informa informa informa informa 2017 tch tion in tion in tion in tion in 6:25 PM [interp source source source source retatio data data data data n] by Immedia te spin Blood type & Crossmatch panel in Blood Observa Value Referen Units Interpr Notes Date tion ce etation Range Hold? Y Major COMPAT No No No No Sep 14 crossma informa informa informa informa 2017 tch tion in tion in tion in tion in 6:25 PM [interp source source source source retatio data data data data n] Major COMPAT No No No No Sep 14 crossma informa informa informa informa 2017 tch tion in tion in tion in tion in 6:25 PM [interp source source source source retatio data data data data n] by Immedia te spin Blood type & Crossmatch panel in Blood Observa Value Referen Units Interpr Notes Date tion ce etation Range Blood NEGATIV NEGATIV No No No Sep 14 group E E informa informa informa 2017 antibod tion in tion in tion in 6:25 PM y source source source screen data data data [Presen ce] in Serum or Plasma Rh POSITIV No No No No Sep 14 [Type] E informa informa informa informa 2017 in tion in tion in tion in tion in 6:25 PM Blood source source source source data data data data ABO O No No No Sep 14 group informa informa informa 2016 [Type] tion in tion in tion in 6:25 PM in source source source Blood data data data Lactate [Moles/volume] in Serum or Plasma Observa Value Referen Units Interpr Notes Date tion ce etation Range LATE DUE TO PATIENT IN RADIOLOGY Lactate 0.4 - 2.0 MMOL/L High Jun 12 [Moles/vo 2017 3:38 lume] in CRITICAL PM Serum or RESULTS Plasma RESU LTS CALLED TO: [facility] 06/12/17 1608 Susan Barrios elevated Lactic Acid is suggestiv e of sepsis and shouldbe repeated within 6 hours of initial testing. CBC W Auto Differential panel in Blood Observa Value Referen Units Interpr Notes Date tion ce etation Range LATE DUE TO PATIENT IN RADIOLOGY Basophils 0 - 0.2 K/MM3 Normal No Sep 14 informati 2016 3:38 [#/volume on in PM ] in source Blood by data Automated count Basophils 0.1 - 2.0 % Normal No Sep 14 /100 informati 2016 3:38 leukocyte on in PM s in source Blood by data Automated count Eosinophi 0.0 - 0.4 K/mm3 Normal No Sep 14 ls informati 2016 3:38 [#/volume on in PM ] in source Blood by data Automated count Eosinophi 0.1 - % Normal No Sep 14 ls/100 12.0 informati 2016 3:38 leukocyte on in PM s in source Blood by data Automated count Granulocy 1.8 - 7.8 K/mm3 High No Sep 14 moses informati 2016 3:38 [#/volume on in PM ] in source Blood by data Automated count Granulocy 37.0 - % High No Sep 14 moses/100 80.0 informati 2016 3:38 leukocyte on in PM s in source Blood by data Automated count Hematocri 37.0 - % Normal No Sep 14 t [Volume 47.0 informati 2016 3:38 on in PM Fraction] source of Blood data Hemoglobi 12.2 - g/dL Normal No Sep 14 n 16.2 informati 2016 3:38 [Mass/vol on in PM ume] in source Blood data Lymphocyt 0.7 - 4.5 K/mm3 Normal No Sep 14 es informati 2017 3:38 [#/volume on in PM ] in source Unspecifi data ed specimen by Automated count Lymphocyt 10 - 50.0 % Low No Sep 14 es informati 2016 3:38 [#/volume on in PM ] in source Unspecifi data ed specimen by Automated count Erythrocy 27 - 31.2 pg Normal No Sep 14 te mean informati 2017 3:38 corpuscul on in PM ar source hemoglobi data n [Entitic mass] Erythrocy 31.8 - g/dl Normal No Sep 14 te mean 35.4 informati 2016 3:38 corpuscul on in PM ar source hemoglobi data n concentra tion [Mass/vol ume] by Automated count Erythrocy 82.2 - fl Normal No Sep 14 te mean 97.8 informati 2016 3:38 corpuscul on in PM ar volume source [Entitic data volume] by Automated count Monocytes 0.1 - 1.0 K/mm3 High No Sep 14 informati 2016 3:38 [#/volume on in PM ] in source Blood by data Automated count Monocytes 1.7 - 9.3 % Normal No Sep 14 /100 informati 2016 3:38 leukocyte on in PM s in source Blood by data Automated count Platelet 7.4 - fl Low No Sep 14 mean 10.4 informati 2016 3:38 volume on in PM [Entitic source volume] data in Blood by Automated count Platelets 142 - 424 K/mm3 Normal No Sep 14 informati 2017 3:38 [#/volume on in PM ] in source Blood data Erythrocy 4.2 - 5.4 M/mm3 Normal No Sep 14 msoes informati 2017 3:38 [#/volume on in PM ] in source Amniotic data fluid Erythrocy 11.5 - % Normal No Sep 14 te 17.5 informati 2017 3:38 distribut on in PM ion width source [Entitic data volume] by Automated count Leukocyte 4.8 - K/MM3 High No Sep 14 s 10.8 alert informati 2017 3:38 [#/volume on in PM ] in source Blood data Urinalysis dipstick W Reflex Microscopic panel in Urine Observa Value Referen Units Interpr Notes Date tion ce etation Range Appeara CLOUDY CLEAR No No No Sep 14 nce of informa informa informa 2017 Urine tion in tion in tion in 1:30 PM source source source data data data Amorpho 2+ NONE No No No Sep 14 us informa informa informa 2017 sedimen tion in tion in tion in 1:30 PM t source source source [Presen data data data ce] in Urine sedimen t by Light microsc opy Bacteri 2+ O No No No Sep 14 a informa informa informa 2017 [Presen tion in tion in tion in 1:30 PM ce] in source source source Urine data data data sedimen t by Light microsc opy Bilirub NEGATIV NEG No No No Sep 14 in E informa informa informa 2017 [Presen tion in tion in tion in 1:30 PM ce] in source source source Urine data data data by Test strip Erythro NEGATIV NEG No No No Sep 14 cytes E informa informa informa 2017 [Presen tion in tion in tion in 1:30 PM ce] in source source source Urine data data data Color YELLOW YELLOW No No No Sep 14 of informa informa informa 2017 Urine tion in tion in tion in 1:30 PM source source source data data data Glucose NEG No No No Sep 14 [Mass/vol informati informati informati 2017 1:30 ume] in on in on in on in PM Urine by source source source Test data data data strip Ketones 1+ NEG mg/dL Abnorma No Sep 14 l informa 2017 [Presen tion in 1:30 PM ce] in source Urine data by Automat ed test strip Mucus NEGATIV NEG No No No Sep 14 [Presen E informa informa informa 2016 ce] in tion in tion in tion in 1:30 PM Urine source source source sedimen data data data t by Light microsc opy Mucus 2+ OCC No No No Sep 14 [Presen informa informa informa 2017 ce] in tion in tion in tion in 1:30 PM Urine source source source sedimen data data data t by Light microsc opy Nitrite NEGATIV NEG No No No Sep 14 E informa informa informa 2017 [Presen tion in tion in tion in 1:30 PM ce] in source source source Urine data data data by Test strip pH of 5.0 - 8.5 No Normal No Sep 14 Urine informati informati 2017 1:30 on in on in PM source source data data Protein NEG mg/dL High No Sep 14 [Mass/vol informati 2017 1:30 ume] in on in PM Urine by source Automated data test strip Erythro NONE 0 rbc/hpf No No Sep 14 cytes informa informa 2017 [Presen tion in tion in 1:30 PM ce] in source source Urine data data sedimen t by Light microsc opy Specific 1.005 - No Normal No Sep 14 gravity 1.030 informati informati 2017 1:30 of Urine on in on in PM source source data data Epithel OCC 0 - 5 #/hpf No No Sep 14 ial informa informa 2017 cells.s tion in tion in 1:30 PM quamous source source data data [Presen ce] in Urine sedimen t by Microsc opy high power field Urobili 1.0 NEG E.U./dL No No Sep 14 nogen informa informa 2017 [Presen tion in tion in 1:30 PM ce] in source source Urine data data by Test strip Leukocyte O wbc/hpf No No Sep 14 s informati informati 2017 1:30 [#/volume on in on in PM ] in source source Urine data data Urinalysis dipstick W Reflex Microscopic panel in Urine Observa Value Referen Units Interpr Notes Date tion ce etation Range Appeara CLOUDY CLEAR No No No Sep 14 nce of informa informa informa 2017 Urine tion in tion in tion in 1:30 PM source source source data data data Bilirub NEGATIV NEG No No No Sep 14 in E informa informa informa 2017 [Presen tion in tion in tion in 1:30 PM ce] in source source source Urine data data data by Test strip Erythro NEGATIV NEG No No No Sep 14 cytes E informa informa informa 2017 [Presen tion in tion in tion in 1:30 PM ce] in source source source Urine data data data Color YELLOW YELLOW No No No Sep 14 of informa informa informa 2017 Urine tion in tion in tion in 1:30 PM source source source data data data Glucose NEG No No No Sep 14 [Mass/vol informati informati informati 2017 1:30 ume] in on in on in on in PM Urine by source source source Test data data data strip Ketones 1+ NEG mg/dL Abnorma No Sep 14 l informa 2016 [Presen tion in 1:30 PM ce] in source Urine data by Automat ed test strip Mucus NEGATIV NEG No No No Sep 14 [Presen E informa informa informa 2016 ce] in tion in tion in tion in 1:30 PM Urine source source source sedimen data data data t by Light microsc opy Nitrite NEGATIV NEG No No No Sep 14 E informa informa informa 2016 [Presen tion in tion in tion in 1:30 PM ce] in source source source Urine data data data by Test strip pH of 5.0 - 8.5 No Normal No Sep 14 Urine informati informati 2017 1:30 on in on in PM source source data data Protein NEG mg/dL High No Sep 14 [Mass/vol informati 2017 1:30 ume] in on in PM Urine by source Automated data test strip Specific 1.005 - No Normal No Sep 14 gravity 1.030 informati informati 2017 1:30 of Urine on in on in PM source source data data Urobili 1.0 NEG E.U./dL No No Sep 14 nogen informa informa 2017 [Presen tion in tion in 1:30 PM ce] in source source Urine data data by Test strip Lactate [Moles/volume] in Blood Observa Value Referen Units Interpr Notes Date tion ce etation Range Lactate 0.4 - 2.0 mmol/L High Sep 14 [Moles/vo 2017 lume] in CRITICAL 11:25 AM Blood RESULTS RESU LTS CALLED TO: [facility] 06/12/17 Monse2 Susan Barrios elevated Lactic Acid is suggestiv e of sepsis and shouldbe repeated within 6 hours of initial testing. Magnesium [Moles/volume] in Unspecified specimen Observa Value Referen Units Interpr Notes Date tion ce etation Range Magnesium 1.4 - 2.2 mg/dL Normal No Sep 14 informati 2017 9:30 [Moles/vo on in AM lume] in source Unspecifi data ed specimen CBC W Auto Differential panel in Blood Observa Value Referen Units Interpr Notes Date tion ce etation Range Basophils 0 - 0.2 K/MM3 Normal No Sep 14 informati 2017 9:30 [#/volume on in AM ] in source Blood by data Automated count Basophils 0.1 - 2.0 % Normal No Sep 14 /100 informati 2017 9:30 leukocyte on in AM s in source Blood by data Automated count Eosinophi 0.0 - 0.4 K/mm3 Normal No Sep 14 ls informati 2017 9:30 [#/volume on in AM ] in source Blood by data Automated count Eosinophi 0.1 - % Normal No Sep 14 ls/100 12.0 informati 2016 9:30 leukocyte on in AM s in source Blood by data Automated count Granulocy 1.8 - 7.8 K/mm3 High No Sep 14 moses informati 2017 9:30 [#/volume on in AM ] in source Blood by data Automated count Granulocy 37.0 - % High No Sep 14 moses/100 80.0 informati 2016 9:30 leukocyte on in AM s in source Blood by data Automated count Hematocri 37.0 - % High No Sep 14 t [Volume 47.0 informati 2017 9:30 on in AM Fraction] source of Blood data Hemoglobi 12.2 - g/dL No No Sep 14 n 16.2 informati informati 2016 9:30 [Mass/vol on in on in AM ume] in source source Blood data data Lymphocyt 0.7 - 4.5 K/mm3 Normal No Sep 14 es informati 2017 9:30 [#/volume on in AM ] in source Unspecifi data ed specimen by Automated count Lymphocyt 10 - 50.0 % Normal No Sep 14 es informati 2017 9:30 [#/volume on in AM ] in source Unspecifi data ed specimen by Automated count Erythrocy 27 - 31.2 pg High No Sep 14 te mean informati 2017 9:30 corpuscul on in AM ar source hemoglobi data n [Entitic mass] Erythrocy 31.8 - g/dl Normal No Sep 14 te mean 35.4 informati 2017 9:30 corpuscul on in AM ar source hemoglobi data n concentra tion [Mass/vol ume] by Automated count Erythrocy 82.2 - fl Normal No Sep 14 te mean 97.8 informati 2017 9:30 corpuscul on in AM ar volume source [Entitic data volume] by Automated count Monocytes 0.1 - 1.0 K/mm3 Normal No Sep 14 informati 2017 9:30 [#/volume on in AM ] in source Blood by data Automated count Monocytes 1.7 - 9.3 % Normal No Sep 14 /100 informati 2017 9:30 leukocyte on in AM s in source Blood by data Automated count Platelet 7.4 - fl Normal No Sep 14 mean 10.4 informati 2017 9:30 volume on in AM [Entitic source volume] data in Blood by Automated count Platelets 142 - 424 K/mm3 High No Sep 14 informati 2017 9:30 [#/volume on in AM ] in source Blood data Erythrocy 4.2 - 5.4 M/mm3 Normal No Sep 14 moses informati 2017 9:30 [#/volume on in AM ] in source Amniotic data fluid Erythrocy 11.5 - % Normal No Sep 14 te 17.5 informati 2016 9:30 distribut on in AM ion width source [Entitic data volume] by Automated count Leukocyte 4.8 - K/MM3 High No Sep 14 s 10.8 informati 2016 9:30 [#/volume on in AM ] in source Blood data Differential panel, method unspecified - Observa Value Referen Units Interpr Notes Date tion ce etation Range Lymphocyt 0 - 5 % Normal No Sep 14 es informati 2017 9:30 Variant/1 on in AM 00 source leukocyte data s in Blood by Manual count Neutrophi 0 - 8 % Normal No Sep 14 ls.band informati 2017 9:30 form/100 on in AM leukocyte source s in data Blood by Automated count LYMPH 11 10 - 50 % Normal No Sep 14 informa 2017 tion in 9:30 AM source data Metamyelo 0 - 1 % Normal No Sep 14 cytes/100 informati 2017 9:30 on in AM leukocyte source s in data Blood by Manual count Monocytes 2 - 9 % Normal No Sep 14 /100 informati 2017 9:30 leukocyte on in AM s in source Blood by data Automated count Platele NORMAL No No No No Sep 14 ts informa informa informa informa 2016 [Presen tion in tion in tion in tion in 9:30 AM ce] in source source source source Blood data data data data by Light microsc opy Neutrophi 42 - 76 % High No Sep 14 ls informati 2017 9:30 [#/volume on in AM ] in source Blood by data Automated count Cells No #CELLS No No Sep 14 Counted informati informati informati 2017 9:30 Total [#] on in on in on in AM in Blood source source source data data data Amylase [Enzymatic activity/volume] in Serum or Plasma Observa Value Referen Units Interpr Notes Date tion ce etation Range Amylase 25 - 115 U/L Normal No Sep 14 [Enzymati informati 2017 9:30 c on in AM activity/ source volume] data in Serum or Plasma Comprehensive metabolic 2000 panel in Serum or Plasma Observa Value Referen Units Interpr Notes Date tion ce etation Range Albumin/G 1.1 - 1.8 No Normal No Sep 14 lobulin informati informati 2017 9:30 [Mass on in on in AM ratio] in source source Serum or data data Plasma Albumin 3.4 - 5.0 gm/dL Normal No Sep 14 [Mass/vol informati 2017 9:30 ume] in on in AM Serum or source Plasma data Alkaline 46 - 116 U/L Normal No Sep 14 phosphata informati 2017 9:30 se on in AM [Enzymati source c data activity/ volume] in Serum or Plasma Bilirubin 0.2 - 1.0 mg/dL Normal No Sep 14 .total informati 2017 9:30 [Mass/vol on in AM ume] in source Serum or data Plasma Urea 7 - 18 mg/dL Normal No Sep 14 nitrogen informati 2017 9:30 [Mass/vol on in AM ume] in source Serum or data Plasma Calcium 8.5 - mg/dL High No Sep 14 [Mass/vol 10.1 informati 2017 9:30 ume] in on in AM Serum or source Plasma data Chloride 98 - 107 mmoL/L Normal No Sep 14 [Moles/vo informati 2017 9:30 lume] in on in AM Serum or source Plasma data Carbon 21.0 - mmoL/L Normal No Sep 14 dioxide, 32.0 informati 2017 9:30 total on in AM [Moles/vo source lume] in data Serum or Plasma Creatinin 0.55 - mg/dL Normal No Sep 14 e 1.02 informati 2017 9:30 [Mass/vol on in AM ume] in source Serum or data Plasma Creatinin 50 - 200 ML/MIN Low No Sep 14 e renal informati 2017 9:30 clearance on in AM source predicted data by Cockcroft -Gault formula Estimated 59- ML/MIN Low REFERENCE Sep 14 RANGE: 2017 9:30 glomerula >60 AM r ML/MIN/1. filtratio 73 SQUARE n rate METERSIf (GF this patient is -A merican, then multiply theresult by 1.210. Globulin 1.3 - 3.2 gm/dL High No Sep 14 [Mass/vol informati 2017 9:30 ume] in on in AM Serum source data Glucose 74 - 106 mg/dL High No Sep 14 [Mass/vol informati 2016 9:30 ume] in on in AM Serum or source Plasma data Potassium 3.5 - 5.1 mmoL/L Normal No Sep 14 informati 2017 9:30 [Moles/vo on in AM lume] in source Serum or data Plasma Sodium 136 - 145 mmoL/L Normal No Sep 14 [Moles/vo informati 2017 9:30 lume] in on in AM Serum or source Plasma data Aspartate 15 - 37 U/L Normal No Sep 14 informati 2017 9:30 aminotran on in AM sferase source [Enzymati data c activity/ volume] in Serum or Plasma Alanine 12 - 78 U/L Normal No Sep 14 aminotran informati 2016 9:30 sferase on in AM [Enzymati source c data activity/ volume] in Serum or Plasma Protein 6.4 - 8.2 gm/dL High No May 14 [Mass/vol informati 2017 9:30 ume] in on in AM Serum or source Plasma data Lipase [Enzymatic activity/volume] in Serum or Plasma Observa Value Referen Units Interpr Notes Date tion ce etation Range Lipase 73 - 393 U/L Normal No May 14 [Enzymati informati 2017 9:30 c on in AM activity/ source volume] data in Serum or Plasma
--- OUTSIDE RECORDS SUMMARY | 2017-07-08 05:48 | External Medical Summary Rpt ---
[...] or RESULTS Plasma RESU LTS CALLED TO: [facility] 06/12/17 1608 Susan Barrios elevated Lactic [...] Normal No Sep 14 moses informati 2017 3:38 [#/volume on in PM [...] - 7.8 K/mm3 High No Sep 14 mosse informati 2017 9:30 [#/volume on in AM [...]
--- OUTSIDE RECORDS SUMMARY | 2017-07-08 06:25 | External Medical Summary Rpt ---
Author Author , IZABELA VELA Address Unknown Phone [email or web address] Immunization Name Date Rout CVX Reac Dose Comm Prov Is Faci e tion ent ider Refu lity Give sed n Infl 09- 135 999 Hist D203 No D203 uenz 4-20 oric 45 45 a, 16 al High Info rmat Dose ion - Sour ce Unsp ecif ied
--- OUTSIDE RECORDS SUMMARY | 2017-07-08 06:25 | External Medical Summary Rpt ---
Author Author , DANE Almendarez DANE Address Unknown Phone .[facility] Care Team Providers Care Line Appliance Assembler Name Role Phone A Derrick CANDELARIO MD PSC, Mynor Unavailable Unavailable Derrick CANDELARIO MD PSC [facility] Unavailable Unavailable [facility] Unavailable Unavailable [facility], [facility] Unavailable Unavailable HOSPITAL P, [facility] P CASTILLO JR [facility], CASTILLO Unavailable Unavailable JR [facility]I [facility] Unavailable Unavailable SERVICES, [facility], Unavailable Unavailable [facility], Unavailable Unavailable [facility] KODAK PARRA Unavailable Unavailable Purpose Continuity of Care Document - 02-26-2012 through 2016 Problems Code Diagnosis DOS Provider Status 4019 UNSPECIFIED 09-22-2013 [facility] P N 5589 OTH&UNSPEC 09-22-2013 [facility] US SERVICES GASTROENTER ITIS&COLITI S 51563 OTHER 09-22-2013 [facility] P 2449 UNSPECIFIED 08-26-2012 [facility] HYPOTHYROID ISM 22428 CHEST PAIN 02-26-2012 Mynor HARRIS MD PSC Procedures Procedure DOS Code Location Performer Comment CREATINE 30432 GEORGE [facility]Z KINASE 3 [facility] TOTAL INC INC ECG 87183 GE[facility]GE VA[facility]QUEZ ROUTINE 3 [facility] ECG INC INC W/LEAST 12 LDS TRCG ONLY W/O I&R IAADI 44764 GE[facility] INFLUENZA 3 [facility] B VIRUS INC INC IAADI 63538 GE[facility] INFFLUENZ 3 [facility] [place] [address] GEOR[facility] TROPONIN 3 [facility] QUANTITAT INC INC CLOTILDE BLOOD 15361 GE[facility] VAZUQEZ COUNT 3 [facility] COMPLETE INC INC AUTO&AUTO DIFRNTL WBC ECG 40719 GEORGE CHONG JR ROUTINE 3 [facility] ECG HOSPITAL W/LEAST P 12 LDS [place] [address] GEORGE [facility]QUEZ INFUSION 3 [facility] THERAPY/P INC INC ROPHYLAXI S /DX 1ST TO 1 HR THERAPEUT 65738 GE[facility] IC 3 [facility] INJECTION INC INC IV PUSH EACH NEW DRUG CREATINE 65559 GE[facility] VA[facility]QUEZ KINASE MB 3 [facility] FRACTION INC INC ONLY COMPREHEN 19270 GE[facility]QUEZ SIVE 3 [facility] METABOLIC INC INC PANEL INJECTION J2405 GE[facility] VAZQUEZ 3 [facility] ONDANSETR INC INC ON HCL PER 1 MG BASIC 45242 [facility] METABOLIC 2 DIAGNOSTI DIAGNOSTI [place] [address] [facility] THYROID 2 DIAGNOSTI DIAGNOSTI STIMULATI CS CS NG HORMONE TSH Encounters Encounter Start End Date Code Location Performer Type Date EMERGENCY 45008 OMAR CERVANTES DEPT 3 3 EMERGENCY BRO VISIT SERVICES HIGH SEVERITY& THREAT [facility] - 3 3 [facility] OUTPATIEN INC T EMERGENCY 26058 GEORGE 3 3 [facility] DEPARTMEN INC T VISIT HIGH/URGE NT SEVERITY OFFICE 30226 Mynor JARRETT 2 2 KODAK CROOKS T VISIT [facility] 15 MINUTES
--- OUTSIDE RECORDS SUMMARY | 2017-07-08 06:25 | External Medical Summary Rpt ---
Author Author , DANE Almendarez DANE Address Unknown Phone [email or web address] Care Team Providers Care Prep Room Supervisor Name Role Phone A Derrick CANDELARIO MD PSC, A Unavailable Unavailable Derrick CANDELARIO MD PSC HELEN QUINN Unavailable Unavailable LARY CERVANTES MD, Unavailable Unavailable HEENA CERVANTES MD [facility] Unavailable Unavailable INC, [facility] Unavailable [facility]available HOSPITAL P, [facility] P CASTILLO JR DWI, CASTILLO Unavailable Unavailable JR DWI [facility] Unavailable Unavailable SERVICES, [facility], Unavailable Unavailable [facility], Unavailable Unavailable [facility] KODAK PARRA Unavailable Unavailable Purpose Continuity of Care Document - 02-26-2012 through 2016 Problems Code Diagnosis DOS Provider Status 401.9 401.9 09-22-2013 [facility] NOS Hospital 4019 UNSPECIFIED 09-22-2013 [facility] P N 558.9 558.9 09-22-2013 [facility] IT NEC 5589 OTH&UNSPEC 09-22-[facility] ITIS&COLITI S 780.79 780.79 OTH 09-22-2013 [facility] IGUE [facility] 70338 OTHER 09-22-2013 [facility] P 2449 UNSPECIFIED 08-26-2012 [facility] HYPOTHYROID ISM 47320 CHEST PAIN 02-26-2012 Mynor BARNARDIFIED PSC D72.829 [...] Procedures Procedure DOS Code Location Performer Comment COMPREHEN 24410 [facility] VA[facility]QUEZ SIVE 3 [facility] METABOLIC INC INC PANEL INJECTION J2405 GEORGE VAZQUEZ 3 [facility] ONDANSETR INC INC ON HCL PER 1 MG CREATINE 41778 GEORGE VAZQUEZ KINASE 3 [facility] TOTAL INC INC IAADI 47685 GEORGE VA[facility]QUEZ INFLUENZA 3 MEM H[facility] B VIRUS INC INC IAADI 67326 GEORGE VAZQUEZ INFFLUENZ 3 [facility] A A VIRUS INC INC ECG 40258 GEORGE VAZQUEZ ROUTINE 3 [facility] ECG INC INC W/LEAST 12 LDS TRCG ONLY W/O I&[place] [address] GEORGE VAZQUEZ TROPONIN 3 [facility] QUANTITAT INC INC CLOTILDE BLOOD 05839 GEORGE VAZQUEZ COUNT 3 [facility] COMPLETE INC INC AUTO&AUTO DIFRNTL WBC ECG 56598 GEORGE CHONG JR ROUTINE 3 [facility] W/LEAST P 12 LDS I&[place] [address] GEORGE VAZQUEZ INFUSION 3 [facility] THERAPY/P INC INC ROPHYLAXI S /DX 1ST TO 1 HR THERAPEUT 24190 GEORGE VAZQUEZ IC 3 [facility] INJECTION INC INC IV PUSH EACH NEW DRUG CREATINE 16977 GEORGE VAZQUEZ KINASE MB 3 [facility] [place] [address] [facility] THYROID 2 DIAGNOSTI DIAGNOSTI STIMULATI CS CS NG HORMONE TSH BASIC 12064 [facility] METABOLIC 2 DIAGNOSTI DIAGNOSTI PANEL CS CS CALCIUM TOTAL Encounters Encounter Start End Date Code Location Performer Type Date Emergency GEORGE CERVANTES MD (ER) 3 17:16 3 19:14 [facility] EMERGENCY 24985 OMAR CERVANTES DEPT 3 3 EMERGENCY BRO VISIT SERVICES HIGH SEVERITY& THREAT [facility] EMERGENCY 77908 GEORGE 3 3 [facility] DEPARTMEN INC T VISIT HIGH/URGE NT [facility] GEORGE - 3 3 [facility] OUTPATIEN INC T OFFICE 90625 Mynor JARRETT 2 2 KODAK CROOKS T VISIT [facility] 15 MINUTES
--- OUTSIDE RECORDS SUMMARY | 2017-07-08 06:25 | External Medical Summary Rpt ---
Author Author , DANE Almendarez DANE Address Unknown Phone [email or web address] Care Team Providers Care Sales Project Administrator Name Role Phone A Derrick CANDELARIO MD PSC, Mynor Unavailable Unavailable Derrick CANDELARIO MD PSC [facility] QUINN Unavailable Unavailable [facility] Unavailable Unavailable INC, [facility] Un[facility] Un[facility] P, [facility] P CASTILLO JR DWI, CASTILLO Unavailable Unavailable JR DWI [facility] Unavailable Unavailable SERVICES, [facility], Unavailable Unavailable [facility], Unavailable Unavailable [facility] KODAK PARRA Unavailable Unavailable Purpose Continuity of Care Document - 02-26-2012 through 2016 Problems Code Diagnosis DOS Provider Status 4019 UNSPECIFIED 09-22-2013 [facility] P N 5589 OTH&UNSPEC 09-22-2013 [facility] US SERVICES GASTROENTER ITIS&COLITI S 37673 OTHER 09-22-2013 [facility] P 2449 UNSPECIFIED 08-26-2012 [facility] HYPOTHYROID ISM 12320 CHEST PAIN 02-26-2012 Mynor HARRIS MD PSC Procedures Procedure DOS Code Location Performer Comment CREATINE 78096 GEORGE VAZQUEZ KINASE 3 [facility] TOTAL INC INC ECG 52299 GEORGE VAZQUEZ ROUTINE 3 [facility] ECG INC INC W/LEAST 12 LDS TRCG ONLY W/O I&R IAADI 39543 GEORGE VAZQUEZ INFLUENZA 3 [facility] B VIRUS INC INC IAADI 43678 GEORGE VAZQUEZ INFFLUENZ 3 [facility] [place] [address] GEORGE VAZQUEZ TROPONIN 3 [facility] H[facility] MEM HOS[facility] QUANTITAT INC INC CLOTILDE BLOOD 11219 GEORGE VAZQUEZ COUNT 3 [facility] COMPLETE INC INC AUTO&AUTO DIFRNTL WBC ECG 85069 GEORGE CHONG JR ROUTINE 3 [facility] ECG HOSPITAL W/LEAST P 12 LDS I&[place] [address] GEORGE VAZQUEZ INFUSION 3 [facility] H[facility] MEM HOS[facility] THERAPY/P INC INC ROPHYLAXI S /DX 1ST TO 1 HR THERAPEUT 64570 GEORGE VAZQUEZ IC 3 [facility] INJECTION INC INC IV PUSH EACH NEW DRUG CREATINE 02168 GEORGE VAZQUEZ KINASE MB 3 [facility] FRACTION INC INC ONLY COMPREHEN 98231 GEORGE VAZQUEZ SIVE 3 [facility] METABOLIC INC INC PANEL INJECTION J2405 GEORGE VAZQUEZ 3 [facility]OS[facility] ONDANSETR INC INC ON HCL PER 1 MG BASIC 26477 [facility] MET[facility]OLIC 2 DIAGNOSTI DIAGNOSTI [place] [address] [facility] THYROID 2 DIAGNOSTI DIAGNOSTI STIMULATI CS CS NG HORMONE TSH Encounters Encounter Start End Date Code Location Performer Type Date EMERGENCY 56708 OMAR CERVANTES DEPT 3 3 EMERGENCY BRO VISIT SERVICES HIGH SEVERITY& THREAT [facility] GEORGE - 3 3 [facility] OUTPATIEN INC T EMERGENCY 04714 GEORGE 3 3 [facility] DEPARTMEN INC T VISIT HIGH/URGE NT SEVERITY OFFICE 27440 Mynor JARRETT 2 2 KODAK CROOKS T VISIT [facility] 15 MINUTES
--- OUTSIDE RECORDS SUMMARY | 2017-07-08 06:25 | External Medical Summary Rpt ---
Author Author , DANE Almendarez DANE Address Unknown Phone [email or web address] Care Team Providers Care Field Seismologist Name Role Phone A Derrick CANDELARIO MD PSC, A Unavailable Unavailable Derrick CANDELARIO MD PSC HELEN QUINN Unavailable Unavailable LARY CERVANTES MD, Unavailable Unavailable HEENA CERVANTES MD [facility] Unavailable Unavailable INC, [facility] Unavailable Unavailable HOSPITAL P, [facility] P CASTILLO JR DWI, CASTILLO Unavailable Unavailable JR DWI [facility] Unavailable Unavailable SERVICES, [facility], Unavailable Unavailable [facility], Unavailable Unavailable [facility] KODAK PARRA Unavailable Unavailable Purpose Continuity of Care Document - 02-26-2012 through 2016 Problems Code Diagnosis DOS Provider Status 401.9 401.9 09-22-2013 [facility] NOS Hospital 4019 UNSPECIFIED 09-22-2013 [facility] P N 558.9 558.9 09-22-2013 [facility] IT NEC 5589 OTH&UNSPEC 09-22-2013 [facility] GASTROENTER ITIS&COLITI S 780.79 780.79 OTH 09-22-2013 [facility]&FAT [facility] IGUE [facility] 22931 OTHER 09-22-2013 [facility] P 2449 UNSPECIFIED 08-26-2012 [facility] HYPOTHYROID ISM 82391 CHEST PAIN 02-26-2012 Mynor BARNARDIFIED PSC D72.829 [...] Procedure DOS Code Location Performer Comment COMPREHEN 53716 GEORGE VAZQUEZ SIVE 3 [facility] METABOLIC INC INC PANEL INJECTION J2405 GEORGE VAZQUEZ 3 [facility] ONDANSETR INC INC ON HCL PER 1 MG CREATINE 68618 GEORGE VAZQUEZ KINASE 3 [facility] TOTAL INC INC IAADI 29647 GEORGE VAZQUEZ INFLUENZA 3 MEM HOSP [facility] B VIRUS INC INC IAADI 93297 GEORGE VAZQUEZ INFFLUENZ 3 [facility] A A VIRUS INC INC ECG 41311 GEORGE VAZQUEZ ROUTINE 3 [facility] ECG INC INC W/LEAST 12 LDS TRCG ONLY W/O I&[place] [address] GEORGE VAZQUEZ TROPONIN 3 [facility] HOSP QUANTITAT INC INC CLOTILDE BLOOD 29721 GEORGE VAZQUEZ COUNT 3 [facility] HOSP COMPLETE INC INC AUTO&AUTO DIFRNTL WBC ECG 85854 GEORGE CHONG JR ROUTINE 3 [facility] W/LEAST P 12 LDS I&[place] [address] GEORGE VAZQUEZ INFUSION 3 [facility] HOSP THERAPY/P INC INC ROPHYLAXI S /DX 1ST TO 1 HR THERAPEUT 37324 GEORGE VAZQUEZ IC 3 [facility] MEM HOS[facility] INJECTION INC INC IV PUSH EACH NEW DRUG CREATINE 41275 GEORGE VAZQUEZ KINASE MB 3 [facility] H[facility] [place] [address] [facility] THYROID 2 DIAGNOSTI DIAGNOSTI STIMULATI CS CS NG HORMONE TSH BASIC 42772 [facility] METABOLIC 2 DIAGNOSTI DIAGNOSTI PANEL CS CS CALCIUM TOTAL Encounters Encounter Start End Date Code Location Performer Type Date Emergency GEORGE CERVANTES MD (ER) 3 17:16 3 19:14 [facility] EMERGENCY 96343 OMAR CERVANTES DEPT 3 3 EMERGENCY BRO VISIT SERVICES HIGH SEVERITY& THREAT FUN EMERGENCY 53303 GEORGE 3 3 [facility] DEPARTMEN INC T VISIT HIGH/URGE NT [facility] GEORGE - 3 3 [facility] OUTPATIEN INC T OFFICE 51600 Mynor JARRETT 2 2 KODAK CROOKS T VISIT [facility] 15 MINUTES
--- OUTSIDE RECORDS SUMMARY | 2017-07-08 06:25 | External Medical Summary Rpt ---
Author Author , IZABELA VELA Address Unknown Phone [email or web address] Immunization Name Date Rout CVX Reac Dose Comm Prov Is Faci e tion ent ider Refu lity Give sed n Infl 09- 135 999 Hist D203 No D203 uenz 4-20 oric 45 45 a, 16 al High Info rmat Dose ion - Sour ce Unsp ecif ied
--- OUTSIDE RECORDS SUMMARY | 2017-07-08 06:27 | External Medical Summary Rpt ---
[...] - 7.8 K/mm3 High No Sep 15 omses informati 2017 2:00 [#/volume on in PM [...] or RESULTS Plasma RESU LTS CALLED TO: [facility] 06/12/17 1608 Susan Barrios elevated Lactic Acid [...]
--- OUTSIDE RECORDS SUMMARY | 2017-07-08 06:27 | External Medical Summary Rpt ---
[...] or RESULTS Plasma RESU LTS CALLED TO: [facility] 06/12/17 1608 Susan Barrios elevated Lactic Acid [...]
== END 2017-06-19 14:20 | disposition home or self-care (01) | DRG 330 ==
LOC: ER 08:43 → 2ND 11:14 → ER 11:14 → 2ND 11:17
PROVIDERS: Emergency Medicine; Surgery
PROC: 0DN80ZZ Release Small Intestine, Open Approach (ICD-10-PCS; 2017-06-12)
PROC: 0DT80ZZ Resection of Small Intestine, Open Approach (ICD-10-PCS; principal; 2017-06-12 17:00)
DX: K56.5 Intestinal adhesions [bands] with obstruction (postinfection) (principal); K91.89 Other postprocedural complications and disorders of digestive system; E87.6 Hypokalemia; K56.7 Ileus, unspecified
CPT/HCPCS: J0131; J0330; J1335; J2405; J2710; P9047

== ENCOUNTER 2017-07-08 14:09 | Emergency (ER) | payer MEDICARE, MEDICAID ==
[~2017-07-08] VITALS: Ht 152.4 cm; Wt 59.0 kg
[~2017-07-08 14:09] MED LIST changes: +NORCO 325 MG-51 TAB PO; +VENLAFAXINE H37.5 M2 PO
[2017-07-08 15:05] LABS: LYMPH # 3.9 K/mm3 (0.7-4.5)
[2017-07-08 15:14] LABS: HEMOGLOBIN 11.5 g/dL (12.2-16.2)
[2017-07-08 15:36] LABS: BUN 18 mg/dL (7-18); GFR (ESTIMATED) 83 ML/MIN (59-)
--- NOTE | 2017-07-08 16:20 | RADIOLOGY REPORT PS360 ---
CHEST(2 VIEWS-NOT PORTABLE) HISTORY: Dizziness and weakness CARDIAC WORKUP, DIZZINESS ORDERING PHYSICIAN: LESLI PECK APRN PATIENT AGE: 71 years COMPARISON: 06/13/2017 FINDINGS: The cardiomediastinal silhouette and pulmonary vascularity are within normal limits. The lungs are clear without infiltrates, suspicious nodules, or pleural effusions. No acute bony abnormalities. IMPRESSION: Negative chest, no acute finding
--- NOTE | 2017-07-08 16:43 | Emergency Room Report ---
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 N Clinical Suspician of Infection? N Mental Status: 1 - Regular (Normal Baseline) Sepsis Risk:Low Sepsis RisY Have you (or family members/close friends) recently traveled outside the [place]? N If Yes, where/when: Have you had exposure to infectious disease within the past month? N TB? Other? Specify: Patient with positional lightheaded today, no cephalgia. Referred by her surgeon this AM during a post operative visit s/p bowel resection two weeks ago, as needs w/u for lightheadedness. She has no SOB, no calf pain, no chest pain, no unilateral neurological sx. No fever or congestion. ALLERGIES Coded Allergies: No Known Allergies (06/12/17) Home Medications Active Scripts Dextromethorphan Hb/Doxylamine (Robitussin Nighttime Cough Dm) 5 ML PO Q4H #240 ML Prov: 10/31/16 HYDROCODONE/ACETAMINOPHEN ([place] 5-325 Tablet) 1 TAB PO Q4HP PRN Pain #13 TAB Prov: 06/19/17 Reported Medications Benzonatate (Tessalon Perle) 100 MG PO TIDP PRN COUGH VENLAFAXINE HCL (Venlafaxine HCl ER) 37.5 MG PO DAILY #30 Levothyroxine Sodium (Synthroid 0.125MG) 0.1 MG PO DAILY Temazepam (Restoril 30MG) 30 MG PO QHS Diazepam 10 MG PO TIDP PRN ANXIETY History Medical History General CAD? No Angina: No MD: No Hypertension? Yes Hyperlipidemia? Yes CHF? No DVT? No PE? No COPD? No Asthma? No Anemia? No GERD? No Gastric ulcers? No GI Bleed? No Hernia? No Thyroid Problems? Yes Hypothyroidism? Yes CVA? No Seizures? No Diabetes? No Renal Insuffiency? No End Stage Renal Disease? No UTI? No Stones? No BPH? No GB Disease: No Nephritic Syndrome? No Asplenia? No Hepatitis? No Sickle Cell Disease? No Arthritis? No Migraines? No Cataracts? No Glaucoma? No MRSA? No HIV? No TB? No Anxiety? Yes Depression? Yes Cancer? No More? No Immunization Hx DT/Tetanus > 10 YRS Pneumonia Received In Past Surgical Hx Previous Surgery?Y Tubal Ligation Appendix Family History Family Hx Diabetes No CAD Yes Hypertension Yes Hyperlipidemia Yes Cancer Yes TB No Social History Smoking Hx Smoker: Never Smoker Tobacco: No Packs/day N/A Alcohol Alcohol: No Review of Systems All Other Systems Reviewed and Negative Gastrointestinal see HPI (moving bowels well, taking PO) Psychiatric/Neurological see HPI Physical Exam Vital Signs Vital Signs Date Time Temp Pulse Resp B/P Pulse O2 O2 Flow FiO2 Ox Delivery Rate 07/08 1554 98.3 70 18 110/58 98 07/08 1450 69 114/66 07/08 1447 73 114/65 07/08 1445 74 117/66 07/08 1433 98.0 68 18 117/66 99 07/08 1425 98.0 66 20 90/44 97 General Appearance normal appearance, WD/WN, no apparent distress Eye Exam - bilateral eye normal exam, bilateral eye PERRL, bilateral eye EOMI Ear, Nose, Throat hearing grossly normal, normal ENT inspection, normal pharynx (OP wet) Neck normal inspection, non-tender, supple, full range of motion Respiratory Status Yes: trachea midline, chest symmetrical, non tender chest. No: respiratory distress, tender on palpation, use of accessory muscles, pain on inspiration, pain on expiration, productive cough, non productive cough. Lung Sounds bilateral: normal breath sounds, lungs clear. 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 Glascow Coma Scale Glascow Coma Scale Response Value EYE response: 4 Spontaneously 4 MOTOR response: 6 OBEYS 6 VERBAL response: 5 Oriented & Converses 5 Total 15 Reflexes Reflexes normal Yes Skin intact, normal color, warm/dry Medical Decision Making LABS/Meds/Orders Pt receiving controlled substance in ED? No Results/Orders Laboratory Tests 07/08/17 1440: Lactic Acid 1.4 07/08/17 1440: Sodium 139, Potassium 3.9, Chloride 102, Carbon Dioxide 32, BUN 18, Creatinine 0.7, Estimated Creat Clear 70, Estimated GFR (MDRD) 83, Glucose 98, Calcium 9.7, Total Bilirubin 0.2, AST 37, ALT 48, Alkaline Phosphatase 77, Creatine Kinase 29 , CK-MB (CK-2) Rel Index 1.7, CK and CKMB Interp < 0.5, Troponin I < 0.02, Total Protein 7.7, Albumin 3.5, Globulin 4.2 H, Albumin/Globulin Ratio 0.8 L, Lipase 504 H, WBC 8.4, RBC 3.78 L, Hgb 11.5 L, Hct 35.0 L, MCV 92.8, RDW 13.2, Plt Count 376, MPV 7.6, Gran % 42.0, Gran # 3.5, Lymphocytes % 46.0, Monocytes % 8.4 , Eosinophils % 2.7, Basophils % 0.8, Lymphocytes # 3.9, Monocytes # 0.7, Eosinophils # 0.2, Basophils # 0.1, PUBS MCHC 32.8, MCH 30.4, Urine Color YELLOW , Urine Appearance CLEAR, Urine pH 6.0, Ur Specific Ramey 1.025, Urine Protein NEGATIVE, Urine Ketones NEGATIVE, Urine Blood NEGATIVE, Urine Nitrate NEGATIVE, Urine Bilirubin NEGATIVE, Urine Urobilinogen 0.2, Ur Leukocyte Esterase NEGATIVE , Urine RBC OCC, Urine WBC 5-10, Ur Squamous Epith Cells 5-10, Calcium Oxalate Crystal 3+, Urine Bacteria 1+, Urine Mucus 3+, Urine Glucose NEGATIVE Current Medication Orders Sig/Brunilda Start time Last Medication Dose Route Stop Time Status Admin Sodium Chloride 10 ML PRN PRN 07/08 1500 AC IV 07/09 1449 Sodium Chloride 1,000 ML .Q1H1M 07/08 1500 DC 07/08 IV 07/08 1600 1456 Sodium Chloride 10 ML PRN PRN 07/08 1500 AC IV 07/09 1450 Sodium Chloride 1,000 ML .STK-MED ONE 07/08 1453 DC IV Orders Procedure Date/time Status DIET-NOTHING BY MOUTH 07/08 D Active URINALYSIS/COMPLETE 07/[address] HEAD W/O CONTRAST 07/[address] HEAD REQ 07/08 1639 Complete ELECTROCARDIOGRAM REQUEST 07/08 1450 Active IV SALINE LOCK 07/08 1450 Active ORTHOSTATIC B/P 07/08 1450 Active CULTURE, BLOOD 07/08 145 Active LIPASE 07/08 1450 Complete LACTIC ACID 07/08 1450 Complete CBC WITH AUTO DIFF 07/08 145 Complete CARDIAC ENZYMES 07/08 145 Complete CHEM 12 PROFILE 07/08 1450 Complete CULTURE, URINE 07/08 1440 Active 12 LEAD EKG-CASTILLO (INITIAL) 07/08 UNK Active CM/EKG CM/EKG EKG rate, NSR, rhythm, no evid. of ischemic chgs, no ectopy, normal QRS, normal MT, normal EKG (NSR 65) XRAY/CT/US XRAY/CT/US XRAY chest XR interpretation by reviewed by me (report reviewed) Xray Results normal/NAD, no infiltrates, normal heart size, no hematoma seen, normal lung inflation geraldo CT head CT interpretation by reviewed by me ([facility] report reviewed) Time results known: 1741 CT Results normal/NAD (neg acute) Departure Departure Time of Disposition 1741 Disposition DC Home or Self Care(routine) Clinical Impression Primary Impression: Lightheaded Condition STABLE Referrals Hector CROOKS,A.C. (Family) Patient Instructions Dizziness, Nonvertigo Additional Instructions See Dr. Young for follow up, one to two days. Discharge Counseling Counseled pt/family regarding diagnosis, test results, home care, follow up needs ED Critical Care Critical Care No at 1743
[2017-07-08 17:11] LABS: URINE BILIRUBIN - DIPSTICK NEGATIVE (NEG); URINE BLOOD NEGATIVE (NEG)
[2017-07-08 17:57] VITALS: BP 115/62
--- NOTE | 2017-07-08 19:35 | RADIOLOGY REPORT PS360 ---
CT HEAD W/O CONTRAST HISTORY: Dizziness, lightheadedness LIGHTHEADED AND DIZZY ORDERING PHYSICIAN: Tatiana Arthur MD PATIENT AGE: 71 years COMPARISON: None TECHNIQUE: Axial images obtained without contrast. Brain and bone windows reviewed. FINDINGS: No midline shift, mass effect, intracranial hemorrhage, hydrocephalus, or extra-axial fluid collection is evident. The calvarium has an unremarkable appearance. No mastoid effusion. Mild mucosal thickening of the ethmoid sinuses. IMPRESSION: No acute intracranial findings.
--- OUTSIDE RECORDS SUMMARY | 2017-07-12 06:10 | External Medical Summary Rpt | CCD ---
Author Author , DANE VELA Address Unknown Phone [email or web address] Care Team Providers Care Facs Teacher Name Role Phone A Derrick CANDELARIO MD PSC, A Unavailable Unavailable Derrick CANDELARIO MD PSC HELEN BARTH, HELEN Unavailable Unavailable LARY CERVANTES MD, Unavailable Unavailable HEENA CERVANTES MD [facility] Unavailable Unavailable INC, [facility] Un[facility]available [facility] P, [facility], [facility] Unavailable Unavailable [facility] Unavailable Unavailable SERVICES, [facility], Unavailable Unavailable [facility], Unavailable Unavailable [facility] KODAK PARRA Unavailable Unavailable Purpose Continuity of Care Document - 02-26-2012 through 2016 Problems Code Diagnosis DOS Provider Status 401.9 401.9 09-22-2013 [facility] 4019 UNSPECIFIED 09-22-2013 [facility] P N 558.9 558.9 09-22-2013 [facility] IT NEC 5589 OTH&UNSPEC 09-22-2013 [facility] ITIS&COLITI S 780.79 780.79 OTH 09-22-2013 [facility]&FAT [facility] IGUE [facility] 85316 OTHER 09-22-2013 [facility] P 2449 UNSPECIFIED 08-26-2012 [facility] HYPOTHYROID ISM 90877 CHEST PAIN 02-26-2012 Mynor BARNARDIFIED PSC D72.829 [...] ce] in Serum or Plasma Rh POSITIV complet [Type] 017 E ed in 18:25 Blood ABO O complet group 017 ed [Type] 18:25 in Blood Urinalysis dipstick W Reflex Microscopic panel in Urine (06-12-2017 13:30) Amorpho 2+ NONE complet us 017 ed sedimen 13:30 t [Presen ce] in Urine sedimen t by Light microsc opy Bacteri 06-12- 2+ O complet a 017 ed [Presen 13:30 ce] in Urine sedimen t by Light microsc opy Mucus 2+ OCC complet [Presen 017 ed ce] in 13:30 Urine sedimen t by Light microsc opy Erythro NONE 0 complet cytes 017 ed [Presen 13:30 ce] in Urine sedimen t by Light microsc opy Epithel 06-12- OCC 0#/hp complet ial 017 f - ed cells.s 13:30 5#/hp quamous f [Presen ce] in Urine sedimen t by Microsc opy high power field Urinalysis dipstick W Reflex Microscopic panel in Urine (06-12-2017 13:30) Appeara CLOUDY CLEAR complet nce of 017 ed Urine 13:30 Bilirub NEGATIV NEG complet in 017 E ed [Presen 13:30 ce] in Urine by Test strip Erythro NEGATIV NEG complet cytes 017 E ed [Presen 13:30 ce] in Urine Color YELLOW YELLOW complet of 017 ed Urine 13:30 Ketones 1+ NEG Abnorma complet 017 l ed [Presen 13:30 ce] in Urine by Automat ed test strip Mucus NEGATIV NEG complet [Presen 017 E ed ce] in 13:30 Urine sedimen t by Light microsc opy Nitrite NEGATIV NEG complet 017 E ed [Presen [...] mg/dL 1 ed SerPl-m 17:20 Cnc Prot 8.3 6.4-8.2 complet SerPl-m 013 gm/dL ed Cnc 17:20 Albumin 4.4 3.4-5.0 complet 013 gm/dL ed SerPl-m 17:20 Cnc Globuli 3.9 1.3-3.2 complet n 013 gm/dL ed Ser-mCn 17:20 c Albumin 12-25-2 1.1 UNK 1.1-1.8 complet /Glob 013 ed SerPl-m 17:20 Rto Bilirub 09-22-2 0.4 0.2-1.0 complet 013 mg/dL ed SerPl-m 17:20 Cnc AST 27 U/L 15-37 complet SerPl-c 013 ed Cnc 17:20 ALT 70 U/L 30-65 complet SerPl-c 013 ed Cnc 17:20 ALP 2 112 U/L 50-136 complet SerPl-c 013 ed [...] Bld 013 .0 ed 17:20 MCV RBC 09-22- 93.1 fl 82.2-97 complet 013 .8 ed 17:20 MCH RBC 09-22- 31.0 pg 27-31.2 complet Qn 013 ed Auto 17:20 MEAN 09-22-2 33.3 31.8-35 complet CORPUSC 013 g/dl .4 ed ULAR 17:20 HGB CONC RDW RBC 09-22-2 14.4 % 11.5-17 complet Auto 013 .5 ed 17:20 Platele 09-22-2 386 142-424 complet t Bld 013 K/mm3 ed Ql 17:20 Manual MEAN 09-22-2 7.7 fl 7.4-10. complet PLATELE 013 4 ed T 17:20 VOLUME Granulo 09-22-2 73.2 % 37.0-80 complet cytes 013 .0 ed Fr Bld 17:20 Auto LYMPH % 09-22-2 22.9 % 10-50.0 complet 013 ed 17:20 Monocyt 09-22-2 3.3 % 1.7-9.3 complet es Fr 013 ed Bld 17:20 Auto Eosinop 09-22-2 0.4 % 0.1-12. complet hil Fr 013 [...] DOS [place] [address] GEORGE VAZQUEZ TROPONIN 3 [facility] QUANTITAT INC INC CLOTILDE BLOOD 24441 GEORGE VAZQUEZ COUNT 3 [facility] COMPLETE INC INC AUTO&AUTO DIFRNTL WBC ECG 38848 GEORGE CHONG JR ROUTINE 3 [facility] W/LEAST P 12 LDS [place] [address] GEORGE VAZQUEZ INFUSION 3 [facility] THERAPY/P INC INC ROPHYLAXI S /DX 1ST TO 1 HR THERAPEUT 13281 GEORGE VAZQUEZ IC 3 [facility] INJECTION INC INC IV PUSH EACH NEW DRUG CREATINE 29669 GEORGE VAZQUEZ KINASE 3 [facility] TOTAL INC INC ECG 59541 GEORGE VAZQUEZ ROUTINE 3 [facility] ECG INC INC W/LEAST 12 LDS TRCG ONLY W/O I&R IAADI 56973 GEORGE VAZQUEZ INFLUENZA 3 [facility] B VIRUS INC INC IAADI 32553 GEORGE VAZQUEZ INFFLUENZ 3 [facility] A A VIRUS INC INC CREATINE 69272 GEORGE VAZQUEZ KINASE MB 3 [facility] FRACTION INC INC ONLY INJECTION J2405 GEORGE VAZQUEZ 3 [facility] ONDANSETR INC INC ON HCL PER 1 MG COMPREHEN 49432 GEORGE LAN 3 [facility] [address] [facility] THYROID 2 DIAGNOSTI DIAGNOSTI STIMULATI CS CS NG HORMONE TSH BASIC 07148 [facility] METABOLIC 2 DIAGNOSTI DIAGNOSTI PANEL CS CS CALCIUM TOTAL Encounters Encounter Start End Date Code Location Performer Type Date Emergency GEORGE CERVANTES MD (ER) 3 17:16 3 19:14 [facility] EMERGENCY 18891 OMAR CERVANTES DEPT 3 3 EMERGENCY BRO VISIT SERVICES HIGH SEVERITY& THREAT FUN EMERGENCY 76336 GEORGE 3 3 [facility] INC T VISIT HIGH/URGE NT SEVERITY [facility] GEORGE - 3 3 [facility] OUTPATIEN INC T OFFICE 03180 Mynor Lowe OUTPATIMARTY 2 2 KODAK CROOKS T VISIT [facility] 15 MINUTES
--- OUTSIDE RECORDS SUMMARY | 2017-07-12 06:10 | External Medical Summary Rpt | CCD ---
Author Author , DANE VELA Address Unknown Phone [email or web address] Care Team Providers Care Counseling Aide Name Role Phone A Derrick CANDELARIO MD PSC, A Unavailable Unavailable Derrick CANDELARIO MD PSC HELEN BARTH, HELEN Unavailable Unavailable LARY CERVANTES MD, Unavailable Unavailable HEENA CERVANTES MD [facility] Unavailable Unavailable INC, [facility] Unavailable Unavailable HOSPITAL P, [facility], CASTILLO Unavailable Unavailable [facility] Unavailable Unavailable SERVICES, [facility], Unavailable Unavailable [facility], Unavailable Unavailable [facility] KODAK PARRA Unavailable Unavailable Purpose Continuity of Care Document - 02-26-2012 through 2016 Problems Code Diagnosis DOS Provider Status 401.9 401.9 09-22-2013 [facility] 4019 UNSPECIFIED 09-22-2013 [facility] P N 558.9 558.9 09-22-2013 [facility] IT NEC 5589 OTH&UNSPEC 09-22-2013 [facility] GA[facility]OENTER ITIS&COLITI S 780.79 780.79 OTH 09-22-2013 [facility]&FAT [facility] IGUE [facility] 90769 OTHER 09-22-2013 [facility] P 2449 UNSPECIFIED 08-26-2012 [facility] HYPOTHYROID ISM 66355 CHEST PAIN 02-26-2012 Mynor BARNARDIFIED PSC D72.829 [...] DOS [place] [address] GEORGE VAZQUEZ TROPONIN 3 [facility] QUANTITAT INC INC CLOTILDE BLOOD 66251 GEORGE VAZQUEZ COUNT 3 [facility] COMPLETE INC INC AUTO&AUTO DIFRNTL WBC ECG 67288 GEORGE CHONG JR ROUTINE 3 [facility] W/LEAST P 12 LDS I&[place] [address] GEORGE VAZQUEZ INFUSION [address] [facility] HOSP THERAPY/P INC INC ROPHYLAXI S /DX 1ST TO 1 HR THERAPEUT 57263 GEORGE VAZQUEZ IC 3 [facility] INJECTION INC INC IV PUSH EACH NEW DRUG CREATINE 62300 GEORGE VAZQUEZ KINASE 3 [facility] TOTAL INC INC ECG 92003 GEORGE VAZQUEZ ROUTINE 3 [facility] ECG INC INC W/LEAST 12 LDS TRCG ONLY W/O I&R IAADI 32296 GEORGE VAZQUEZ INFLUENZA 3 [facility] B VIRUS INC INC IAADI 38236 GEORGE VAZQUEZ INFFLUENZ 3 [facility] A A VIRUS INC INC CREATINE 46499 GEORGE VAZQUEZ KINASE MB 3 [facility] FRACTION INC INC ONLY INJECTION J2405 GEORGE VAZQUEZ 3 [facility] ONDANSETR INC INC ON HCL PER 1 MG COMPREHEN 22371 GEORGE LAN 3 [facility] [address] [facility] THYROID 2 DIAGNOSTI DIAGNOSTI STIMULATI CS CS NG HORMONE TSH BASIC 51053 [facility] METABOLIC 2 DIAGNOSTI DIAGNOSTI PANEL CS CS CALCIUM TOTAL Encounters Encounter Start End Date Code Location Performer Type Date Emergency GEORGE CERVANTES MD (ER) 3 17:16 3 19:14 [facility] EMERGENCY 95141 OMAR CERVANTES DEPT 3 3 EMERGENCY BRO VISIT SERVICES HIGH SEVERITY& THREAT FUN EMERGENCY 69221 GEORGE 3 3 [facility] INC T VISIT HIGH/URGE NT SEVERITY [facility] GEORGE - 3 3 [facility] OUTPATIEN INC T OFFICE 62338 Mynor Lowe OUTPATIMARTY 2 2 KODAK CROOKS T VISIT [facility] 15 MINUTES
--- OUTSIDE RECORDS SUMMARY | 2017-07-12 06:10 | External Medical Summary Rpt | CCD ---
Author Author , IZABELA Organization IZABELA Address Unknown Phone [email or web address] Immunization Name Date Rout CVX Reac Dose Comm Prov Is Faci e tion ent ider Refu lity Give sed n Infl 09- 135 999 Hist D203 No D203 uenz 4-20 oric 45 45 a, 16 al High Info rmat Dose ion - Sour ce Unsp ecif ied
--- OUTSIDE RECORDS SUMMARY | 2017-07-12 06:10 | External Medical Summary Rpt | CCD ---
Author Author , DANE Tanesha DANE Address Unknown Phone [email or web address] Care Team Providers Care Admissions Specialist Name Role Phone A Derrick CANDELARIO MD PSC, Mynor Unavailable Unavailable Derrick CANDELARIO MD PSC HELEN BARTH, HELEN Unavailable Unavailable [facility] Un[facility] Unavailable Unavailable HOSPITAL P, [facility] DWI, CASTILLO Unavailable Unavailable JR [facility] Unavailable Unavailable SERVICES, [facility], Unavailable Unavailable [facility], Unavailable Unavailable [facility] KODAK PARRA Unavailable Unavailable Purpose Continuity of Care Document - 02-26-2012 through 2016 Problems Code Diagnosis DOS Provider Status 4019 UNSPECIFIED 09-22-2013 [facility] P N 5589 OTH&UNSPEC 09-22-2013 [facility] US SERVICES GASTROENTER ITIS&COLITI S 33420 OTHER 09-22-2013 [facility] P 2449 UNSPECIFIED 08-26-2012 [facility] HYPOTHYROID ISM 70536 CHEST PAIN 02-26-2012 Mynor BARNARDIFIED PSC Procedures Procedure [place] [address] GEORGE VAZQUEZ TROPONIN 3 [facility] QUANTITAT INC INC CLOTILDE BLOOD 22720 GEORGE VAZQUEZ COUNT 3 [facility] COMPLETE INC INC AUTO&AUTO DIFRNTL WBC ECG 47525 GEORGE CHONG JR ROUTINE 3 [facility] ECG HOSPITAL W/LEAST P 12 LDS I&[place] [address] GEORGE VAZQUEZ INFUSION 3 [facility] THERAPY/P INC INC ROPHYLAXI S /DX 1ST TO 1 HR THERAPEUT 15840 GEORGE VAZQUEZ IC 3 [facility] INJECTION INC INC IV PUSH EACH NEW DRUG CREATINE 50222 GEORGE VAZQUEZ KINASE MB 3 [facility] FRACTION INC INC ONLY COMPREHEN 17182 GEORGE VAZQUEZ SIVE 3 [facility] METABOLIC INC INC PANEL INJECTION J2405 GEORGE VAZQUEZ 3 [facility] ONDANSETR INC INC ON HCL PER 1 MG CREATINE 51114 GEORGE VAZQUEZ KINASE 3 [facility] TOTAL INC INC IAADI 88276 GEORGE VAZQUEZ INFLUENZA 3 [facility] B VIRUS INC INC IAADI 30746 GEORGE VAZQUEZ INFFLUENZ 3 [facility] A A VIRUS INC INC ECG 67506 GEORGE VAZQUEZ ROUTINE 3 [facility] ECG INC INC W/LEAST 12 LDS TRCG ONLY W/O I&R BASIC 85836 [facility] METABOLIC 2 DIAGNOSTI DIAGNOSTI [place] [address] [facility] THYROID 2 DIAGNOSTI DIAGNOSTI STIMULATI CS CS NG HORMONE TSH Encounters Encounter Start End Date Code Location Performer Type Date EMERGENCY 61506 GEORGE 3 3 [facility] DEPARTMEN INC T VISIT HIGH/URGE NT SEVERITY HOSPITAL GEORGE - 3 3 [facility] OUTPATIEN INC T EMERGENCY 56001 OMAR CERVANTES DEPT 3 3 EMERGENCY BRO VISIT SERVICES HIGH SEVERITY& THREAT FUN OFFICE 03285 Mynor JARRETT 2 2 KODAK CROOKS T VISIT [facility] 15 MINUTES
--- OUTSIDE RECORDS SUMMARY | 2017-07-12 06:10 | External Medical Summary Rpt | CCD ---
Author Author , DNAE Tanesha DANE Address Unknown Phone [email or web address] Care Team Providers Care Economic Research Assistant Name Role Phone A Derrick CANDELARIO MD PSC, Mynor Unavailable Unavailable Derrick CANDELARIO MD PSC HELEN BARTH, HELEN Unavailable Unavailable [facility] [place] Unavailable Unavailable INC, [facility] Unavailable Unavailable HOSPITAL P, [facility] DWI, CASTILLO Unavailable Unavailable JR [facility] Unavailable Unavailable SERVICES, [facility], Unavailable Unavailable [facility], Unavailable Unavailable [facility] KODAK PARRA Unavailable Unavailable Purpose Continuity of Care Document - 02-26-2012 through 2016 Problems Code Diagnosis DOS Provider Status 4019 UNSPECIFIED 09-22-2013 [facility] P N 5589 OTH&UNSPEC 09-22-2013 [facility] US SERVICES GASTROENTER ITIS&COLITI S 93307 OTHER 09-22-2013 [facility] P 2449 UNSPECIFIED 08-26-2012 [facility] HYPOTHYROID ISM 18203 CHEST PAIN 02-26-2012 Mynor BARNARDIFIED PSC Procedures Procedure [place] [address] GEORGE VAZQUEZ TROPONIN 3 [facility] QUANTITAT INC INC CLOTILDE BLOOD 08157 GEORGE VAZQUEZ COUNT 3 [facility] COMPLETE INC INC AUTO&AUTO DIFRNTL WBC ECG 92143 GEORGE CHONG JR ROUTINE 3 [facility] ECG HOSPITAL W/LEAST P 12 LDS I&[place] [address] GEORGE VAZQUEZ INFUSION 3 [facility] THERAPY/P INC INC ROPHYLAXI S /DX 1ST TO 1 HR THERAPEUT 45237 GEORGE VAZQUEZ IC 3 [facility] INJECTION INC INC IV PUSH EACH NEW DRUG CREATINE 20150 GEORGE VAZQUEZ KINASE MB 3 [facility] FRACTION INC INC ONLY COMPREHEN 79739 GEORGE VAZQUEZ SIVE 3 [facility] METABOLIC INC INC PANEL INJECTION J2405 GEORGE VAZQUEZ 3 [facility] ONDANSETR INC INC ON HCL PER 1 MG CREATINE 96644 GEORGE VAZQUEZ KINASE 3 [facility] TOTAL INC INC IAADI 04836 GEORGE VAZQUEZ INFLUENZA 3 [facility] B VIRUS INC INC IAADI 59769 GEORGE VAZQUEZ INFFLUENZ 3 [facility] A A VIRUS INC INC ECG 82820 GEORGE VAZQUEZ ROUTINE 3 [facility] ECG INC INC W/LEAST 12 LDS TRCG ONLY W/O I&R BASIC 83877 [facility] MET[facility]OLIC 2 DIAGNOSTI DIAGNOSTI [place] [address] [facility] THYROID 2 DIAGNOSTI DIAGNOSTI STIMULATI CS CS NG HORMONE TSH Encounters Encounter Start End Date Code Location Performer Type Date EMERGENCY 13901 GEORGE 3 3 [facility] [place] [place] DEPARTMEN INC T VISIT HIGH/URGE NT SEVERITY HOSPITAL GEORGE - 3 3 [facility] OUTPATIEN INC T EMERGENCY 08324 OMAR CERVANTES DEPT 3 3 EMERGENCY BRO VISIT SERVICES HIGH SEVERITY& THREAT FUN OFFICE 26359 Mynor JARRETT 2 2 KODAK CROOKS T VISIT [facility] 15 MINUTES
--- OUTSIDE RECORDS SUMMARY | 2017-07-12 06:10 | External Medical Summary Rpt | CCD ---
Author Author , IZABELA Organization IZABELA Address Unknown Phone [email or web address] Immunization Name Date Rout CVX Reac Dose Comm Prov Is Faci e tion ent ider Refu lity Give sed n Infl 09- 135 999 Hist D203 No D203 uenz 4-20 oric 45 45 a, 16 al High Info rmat Dose ion - Sour ce Unsp ecif ied
--- OUTSIDE RECORDS SUMMARY | 2017-07-12 06:12 | External Medical Summary Rpt ---
Author Author DANE Production, DANE Production Organization [employer] Address Unknown [...] or RESULTS Plasma RESU LTS CALLED TO: [facility] 06/12/17 1608 Susan Barrios elevated Lactic [...]
--- OUTSIDE RECORDS SUMMARY | 2017-07-12 06:12 | External Medical Summary Rpt ---
[...] or RESULTS Plasma RESU LTS CALLED TO: [facility] 06/12/17 1608 Susan Barrios elevated Lactic [...]
== END 2017-07-08 18:01 | disposition home or self-care (01) ==
LOC: UTC 14:09 → ER 14:15
PROVIDERS: Emergency Medicine
DX: R42 Dizziness and giddiness (principal); I10 Essential (primary) hypertension; F41.8 Other specified anxiety disorders; Z79.899 Other long term (current) drug therapy

== ENCOUNTER 2017-08-16 12:52 | Emergency (ER) | payer MEDICARE, MEDICAID ==
[~2017-08-16] VITALS: Ht 152.4 cm; Wt 59.0 kg
--- NOTE | 2017-08-16 13:28 | Emergency Room Report ---
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 N Clinical Suspician of Infection? N Mental Status: 1 - Regular (Normal Baseline) Sepsis Risk:Possible Sepsis Risk Have you (or family members/close friends) recently traveled outside the [place]? N If Yes, where/when: Have you had exposure to infectious disease within the past month? N TB? Other? Specify: Patient complains of low back pain radiating down her RIGHT leg she states she woke up with it yesterday morning and today that it is starting to radiate down the RIGHT leg. States it hurts worse with movement in her low back she denies any abdominal pain denies any fever chills nausea or vomiting. Denies any urinary symptoms. Denies any urinary or bowel incontinence. No complaint of weakness denies any falls or trauma. She denies being seen by pain management she denies chronic pain and she states she is not currently taking pain medicine ALLERGIES Coded Allergies: No Known Allergies (06/12/17) Home Medications Active Scripts Dextromethorphan Hb/Doxylamine (Robitussin Nighttime Cough Dm) 5 ML PO Q4H #240 ML Prov: 10/31/16 HYDROCODONE/ACETAMINOPHEN ([place] 5-325 Tablet) 1 TAB PO Q4HP PRN Pain #13 TAB Prov: 06/19/17 Reported Medications Benzonatate (Tessalon Perle) 100 MG PO TIDP PRN COUGH VENLAFAXINE HCL (Venlafaxine HCl ER) 37.5 MG PO DAILY #30 Levothyroxine Sodium (Synthroid 0.125MG) 0.1 MG PO DAILY Temazepam (Restoril 30MG) 30 MG PO QHS Diazepam 10 MG PO TIDP PRN ANXIETY History Medical History General CAD? No Angina: No WV: No Hypertension? Yes Hyperlipidemia? Yes CHF? No DVT? No PE? No COPD? No Asthma? No Anemia? No GERD? No Gastric ulcers? No GI Bleed? No Hernia? No Thyroid Problems? Yes Hypothyroidism? Yes CVA? No Seizures? No Diabetes? No Renal Insuffiency? No End Stage Renal Disease? No UTI? No Stones? No BPH? No GB Disease: No Nephritic Syndrome? No Asplenia? No Hepatitis? No Sickle Cell Disease? No Arthritis? No Migraines? No Cataracts? No Glaucoma? No MRSA? No HIV? No TB? No Anxiety? Yes Depression? Yes Cancer? No More? Yes Additional hx: SCIATICA Immunization Hx DT/Tetanus > 10 YRS Pneumonia Received In Past Surgical Hx Previous Surgery?Y Tubal Ligation Appendix Family History Family Hx Diabetes No CAD Yes Hypertension Yes Hyperlipidemia Yes Cancer Yes TB No Social History Smoking Hx Smoker: Never Smoker Tobacco: No Packs/day N/A Alcohol Alcohol: No Review of Systems All Other Systems Reviewed and Negative Physical Exam Vital Signs Vital Signs Date Time Temp Pulse Resp B/P Pulse O2 O2 Flow FiO2 Ox Delivery Rate 08/16 1342 18 08/16 1300 98.0 100 20 114/57 95 08/16 1255 98.0 100 20 114/57 95 General Appearance: Nontoxic in wheelchair Head: Normocephalic, without obvious abnormality, atraumatic. Eyes: conjunctiva/corneas clear ENT: Mucous membranes moist. Neck: No jugular venous distention. Cardiac: regular rate and rhythm Lungs: Clear to auscultation bilaterally Abdomen: Nontender, no pulsatile mass, Nondistended, positive bowel sounds , no rebound : No CVA tenderness Extremities: no edema Musculoskeletal: No chest wall tenderness Positive low back tenderness some pain in low back with right straight leg raise Skin: No rashes or lesions to exposed skin. Neurologic: Alert. No gross focal deficits strength 5 over 5 sensation intact to light touch bilateral lower extremities Psychiatric: Normal affect (Cedric CROOKS, Mata) General Appearance normal appearance Respiratory Status No: respiratory distress. Cardiovascular normal exam Neurologic alert Medical Decision Making LABS/Meds/Orders Pt receiving controlled substance in ED? No Comment 207pm my read of the lumbar film I do not note any compression fracture or fracture in the back 211pm pt states feels better, urine pending, repeat exam abdomen still ntnd. pt states felt like low back pain to her, denied again any abdominal pain. Results/Orders Laboratory Tests 08/16/17 1345: Urine Color YELLOW, Urine Appearance CLEAR, Urine pH 5.5, Ur Specific Ursa >= 1.030, Urine Protein NEGATIVE, Urine Ketones NEGATIVE, Urine Blood NEGATIVE, Urine Nitrate NEGATIVE, Urine Bilirubin NEGATIVE, Urine Urobilinogen 0.2, Ur Leukocyte Esterase NEGATIVE, Urine Glucose NEGATIVE Current Medication Orders Sig/Brunilda Start time Last Medication Dose Route Stop Time Status Admin Morphine Sulfate 0 .STK-MED ONE 08/16 1331 DC .ROUTE Ondansetron HCl 0 .STK-MED ONE 08/16 1331 DC .ROUTE Morphine Sulfate 8 MG ONCE ONE 08/16 1330 DC 08/16 IM 08/16 1331 1342 Ondansetron HCl 4 MG ONCE ONE 08/16 1330 DC 08/16 PO 08/161 1341 Orders Procedure Date/time Status LUMBAR SPINE 5 VIEWS 08/16 1323 Active URINALYSIS/COMPLETE 08/16 1323 Complete Departure Departure Time of Disposition 1411 Disposition DC Home or Self Care(routine) Clinical Impression Primary Impression: Low back pain Condition STABLE Patient Instructions DI for Low Back Pain Additional Instructions return immediately if any abdominal pain or any problems, worsening symptoms call your doctor for recheck Discharge Counseling Counseled pt/family regarding diagnosis, test results, medications/RX, home care, follow up needs Prescriptions Current Visit Scripts TIZANIDINE HCL (Tizanidine Hydrochloride) 2 MG PO BID #10 CAP ED Critical Care Critical Care No at 1419
--- OUTSIDE RECORDS SUMMARY | 2017-08-16 13:37 | External Medical Summary Rpt | CCD ---
Author Author , DANE Organization DANE Address Unknown Phone [email or web address] Care Team Providers Care As400 Consultant Name Role Phone HEENA CERVANTES MD, Unavailable Unavailable HEENA CERVANTES MD Purpose Continuity of Care Document - 09-22-2013 through 2016 Problems Code Diagnosis DOS Provider Status 401.9 401.9 09-22-2013 [facility] 558.9 558.9 09-22-2013 [facility] IT NEC 780.79 780.79 [facility] D72.829 ELEVATED WHITE BLOOD CELL COUNT, UNSPECIFIED J20.9 ACUTE BRONCHITIS, UNSPECIFIED K56.609 UNSP INTESTNL OBST, UNSP TO PARTIAL VERSUS COMPLETE OBST K56.69 OTHER INTESTINAL OBSTRUCTION N60.02 SOLITARY CYST OF LEFT BREAST N63 UNSPECIFIED LUMP IN BREAST R42 DIZZINESS AND GIDDINESS R92.8 OTH ABN AND INCONCLUSIV E FINDINGS [...] Order Detail nces retati t Range on Urinalysis dipstick W Reflex Microscopic panel in Urine (07-08-2017 14:40) Bacteri 1+ O complet a 017 ed [Presen 14:40 ce] in Urine sedimen t by Light microsc opy Calcium -10-2 3+ NONE complet 017 ed oxalate 14:40 crystal s [Presen ce] in Urine sedimen t by Light microsc opy Mucus -10-2 3+ OCC complet [Presen 017 ed ce] in 14:40 Urine sedimen t by Light microsc opy Erythro -10-2 OCC 0 complet cytes 017 ed [Presen 14:40 ce] in Urine sedimen t by Light microsc opy Epithel 10-10-2 5-10 0#/hp complet ial 017 f - ed cells.s 14:40 5#/hp quamous f [Presen ce] in Urine sedimen t by Microsc opy high power field Leukocy 10-10-2 5-10 O complet moses 017 wbc/hpf ed [#/volu 14:40 me] in Urine Urinalysis dipstick W Reflex Microscopic panel in Urine (07-08-2017 14:40) Appeara 10-2 CLEAR CLEAR complet nce of 017 ed Urine 14:40 Bilirub 10-2 NEGATIV NEG complet in 017 E ed [Presen 14:40 ce] in Urine by Test strip Erythro 07-08-2 NEGATIV NEG complet cytes 017 E ed [Presen 14:40 ce] in Urine Color -10-2 YELLOW YELLOW complet of 017 ed Urine 14:40 Ketones 10-10-2 NEGATIV NEG complet 017 E ed [Presen 14:40 ce] in Urine by Automat ed test strip Mucus -10-2 NEGATIV NEG complet [Presen 017 E ed ce] in 14:40 Urine sedimen t by Light microsc opy Nitrite 10-10-2 NEGATIV NEG complet 017 E ed [Presen 14:40 ce] in Urine by Test strip Urobili -10-2 0.2 NEG complet nogen 017 ed [Presen 14:40 ce] in Urine by Test strip Differential panel, method unspecified - (06-13-2017 14:00) [...] Crossmatch panel in Blood (06-12-2017 18:25) Blood NEGATIV NEGATIV complet group 017 E E [...] by Light microsc opy Bacteri 2+ O complet a 017 ed [Presen 13:30 ce] in Urine sedimen t by Light microsc opy Mucus 2+ OCC complet [Presen 017 ed ce] in 13:30 Urine sedimen t by Light microsc opy Erythro NONE 0 complet cytes 017 ed [Presen 13:30 ce] in Urine sedimen t by Light microsc opy Epithel OCC 0#/hp complet ial 017 f - [...] /Glob 013 ed SerPl-m 17:20 Rto Bilirub 0.4 0.2-1.0 complet 013 mg/dL ed SerPl-m 17:20 Cnc AST 27 U/L 15-37 complet SerPl-c 013 ed Cnc 17:20 ALT 70 U/L 30-65 complet SerPl-c 013 ed Cnc 17:20 ALP 112 U/L 50-136 complet SerPl-c 013 ed Cnc 17:20 CBC with AUTO DIFF (09-22-2013 17:20) WBC # 09-22-2 15.3 4.8-10. complet Bld 013 K/MM3 8 ed Auto 17:20 RBC # 09-22-2 4.94 4.2-5.4 complet Bld 013 M/mm3 ed Auto 17:20 Hgb 09-22-2 15.3 12.2-16 complet Bld-mCn 013 g/dL .2 ed c 17:20 Hct Fr 09-22-2 46.0 % 37.0-47 complet Bld 013 .0 ed 17:20 MCV RBC 09-22-2 93.1 fl 82.2-97 complet 013 .8 ed 17:20 MCH RBC 31.0 pg 27-31.2 complet Qn 013 ed Auto 17:20 MEAN 33.3 31.8-35 complet CORPUSC 013 g/dl .4 ed ULAR 17:20 HGB CONC RDW RBC 09-22-2 14.4 % 11.5-17 complet Auto 013 .5 ed 17:20 Platele 09-22-2 386 142-424 complet t Bld 013 K/mm3 ed Ql 17:20 Manual MEAN 2 7.7 fl 7.4-10. complet PLATELE 013 4 ed T 17:20 VOLUME Granulo 09-22-2 73.2 % 37.0-80 complet cytes 013 .0 ed Fr Bld 17:20 Auto LYMPH % 09-22-2 22.9 % 10-50.0 complet 013 ed 17:20 Monocyt 25-2 3.3 % 1.7-9.3 complet es Fr 013 ed Bld 17:20 Auto Eosinop -25-2 0.4 % 0.1-12. complet hil Fr 013 0 ed Bld 17:20 Auto Basophi 25-2 0.3 % 0.1-2.0 complet ls Fr 013 ed Bld 17:20 Auto Granulo 12-25-2 11.2 1.8-7.8 complet cytes # 013 K/mm3 ed Bld 17:20 Auto Lymphoc 12-25-2 3.5 0.7-4.5 complet ytes Fr 013 K/mm3 ed Bld 17:20 Auto Monocyt 12-25-2 0.5 0.1-1.0 complet es # 013 K/mm3 ed Bld 17:20 Auto Eosinop 12-25-2 0.1 0.0-0.4 complet hil # 013 K/mm3 ed Bld 17:20 Auto Basophi 12-25-2 0.0 0-0.2 complet ls # 013 K/MM3 ed Bld 17:20 Auto Encounters Encounter Start End Date Code Location Performer Type Date Emergency GEORGE CERVANTES MD (ER) 3 17:16 3 19:14 [facility]
--- OUTSIDE RECORDS SUMMARY | 2017-08-16 13:37 | External Medical Summary Rpt | CCD ---
Author Author , DANE Organization DANE Address Unknown Phone [email or web address] Care Team Providers Care Computer Video Game Designer Name Role Phone HEENA CERVANTES MD, Unavailable Unavailable HEENA CERVANTES MD Purpose Continuity of Care Document - 09-22-2013 through 2016 Problems Code Diagnosis DOS Provider Status 401.9 401.9 09-22-2013 [facility] 558.9 558.9 09-22-2013 [facility] IT NEC 780.79 780.79 [facility] D72.829 ELEVATED WHITE BLOOD CELL COUNT, UNSPECIFIED [...]
--- OUTSIDE RECORDS SUMMARY | 2017-08-16 13:38 | External Medical Summary Rpt | CCD ---
Author Author Conduent Organization Conduent Address Unknown Phone Unavailable Purpose Continuity of Care Document - through 2016
--- OUTSIDE RECORDS SUMMARY | 2017-08-16 13:38 | External Medical Summary Rpt | CCD ---
Author Author , IZABELA Organization IZABELA Address Unknown Phone [email or web address] Immunization Name Date Rout CVX Reac Dose Comm Prov Is Faci e tion ent ider Refu lity Give sed n Infl 09- 135 999 Hist D203 No D203 uenz 4-20 oric 45 45 a, 16 al High Info rmat Dose ion - Sour ce Unsp ecif ied
--- OUTSIDE RECORDS SUMMARY | 2017-08-16 13:38 | External Medical Summary Rpt | CCD ---
Author Author , IZABELA Organization IZABELA Address Unknown Phone [email or web address] Immunization Name Date Rout CVX Reac Dose Comm Prov Is Faci e tion ent ider Refu lity Give sed n Infl 09- 135 999 Hist D203 No D203 uenz 4-20 oric 45 45 a, 16 al High Info rmat Dose ion - Sour ce Unsp ecif ied
--- OUTSIDE RECORDS SUMMARY | 2017-08-16 13:39 | External Medical Summary Rpt ---
Author Author DANE Vent[employer], [employer] Organization [employer] Address Unknown Phone Unavailable Results Urinalysis dipstick W Reflex Microscopic panel in Urine Observa Value Referen Units Interpr Notes Date tion ce etation Range Appeara CLEAR CLEAR No No No Jul 08 nce of informa informa informa 2017 Urine tion in tion in tion in 2:40 PM source source source data data data Bacteri 1+ O No No No Jul 08 a informa informa informa 2016 [Presen tion in tion in tion in 2:40 PM ce] in source source source Urine data data data sedimen t by Light microsc opy Bilirub NEGATIV NEG No No No Jul 08 in E informa informa informa 2017 [Presen tion in tion in tion in 2:40 PM ce] in source source source Urine data data data by Test strip Erythro NEGATIV NEG No No No Jul 08 cytes E informa informa informa 2016 [Presen tion in tion in tion in 2:40 PM ce] in source source source Urine data data data Calcium 3+ NONE #/hpf No No Jul 08 informa informa 2017 oxalate tion in tion in 2:40 PM source source crystal data data s [Presen ce] in Urine sedimen t by Light microsc opy Color YELLOW YELLOW No No No Jul 08 of informa informa informa 2017 Urine tion in tion in tion in 2:40 PM source source source data data data Glucose NEG No No No Jul 08 [Mass/vol informati informati informati 2017 2:40 ume] in on in on in on in PM Urine by source source source Test data data data strip Ketones NEGATIV NEG mg/dL No No Jul 08 E informa informa 2017 [Presen tion in tion in 2:40 PM ce] in source source Urine data data by Automat ed test strip Mucus NEGATIV NEG No No No Oct 10 [Presen E informa informa informa 2016 ce] in tion in tion in tion in 2:40 PM Urine source source source sedimen data data data t by Light microsc opy Mucus 3+ OCC No No No Jul 08 [Presen informa informa informa 2016 ce] in tion in tion in tion in 2:40 PM Urine source source source sedimen data data data t by Light microsc opy Nitrite NEGATIV NEG No No No Jul 08 E informa informa informa 2016 [Presen tion in tion in tion in 2:40 PM ce] in source source source Urine data data data by Test strip pH of 5.0 - 8.5 No Normal No Jul 08 Urine informati informati 2017 2:40 on in on in PM source source data data Protein NEG mg/dL No No Jul 08 [Mass/vol informati informati 2016 2:40 ume] in on in on in PM Urine by source source Automated data data test strip Erythro OCC 0 rbc/hpf No No Jul 08 cytes informa informa 2016 [Presen tion in tion in 2:40 PM ce] in source source Urine data data sedimen t by Light microsc opy Specific 1.005 - No Normal No Jul 08 gravity 1.030 informati informati 2017 2:40 of Urine on in on in PM source source data data Epithel 5-10 0 - 5 #/hpf No No Jul 08 ial informa informa 2016 cells.s tion in tion in 2:40 PM quamous source source data data [Presen ce] in Urine sedimen t by Microsc opy high power field Urobili 0.2 NEG E.U./dL No No Jul 08 nogen informa informa 2016 [Presen tion in tion in 2:40 PM ce] in source source Urine data data by Test strip Leukocy [5 O wbc/hpf No No Jul 08 moses wbc/hpf informa informa 2016 [#/volu ; 10 tion in tion in 2:40 PM me] in wbc/hpf source source Urine ] data data Urinalysis dipstick W Reflex Microscopic panel in Urine Observa Value Referen Units Interpr Notes Date tion ce etation Range Appeara CLEAR CLEAR No No No Jul 08 nce of informa informa informa 2017 Urine tion in tion in tion in 2:40 PM source source source data data data Bilirub NEGATIV NEG No No No Jul 08 in E informa informa informa 2016 [Presen tion in tion in tion in 2:40 PM ce] in source source source Urine data data data by Test strip Erythro NEGATIV NEG No No No Jun 10 cytes E informa informa informa 2016 [Presen tion in tion in tion in 2:40 PM ce] in source source source Urine data data data Color YELLOW YELLOW No No No Jul 08 of informa informa informa 2016 Urine tion in tion in tion in 2:40 PM source source source data data data Glucose NEG No No No Jun 10 [Mass/vol informati informati informati 2016 2:40 ume] in on in on in on in PM Urine by source source source Test data data data strip Ketones NEGATIV NEG mg/dL No No Jul 08 E informa informa 2016 [Presen tion in tion in 2:40 PM ce] in source source Urine data data by Automat ed test strip Mucus NEGATIV NEG No No No Jul 08 [Presen E informa informa informa 2016 ce] in tion in tion in tion in 2:40 PM Urine source source source sedimen data data data t by Light microsc opy Nitrite NEGATIV NEG No No No Jul 08 E informa informa informa 2016 [Presen tion in tion in tion in 2:40 PM ce] in source source source Urine data data data by Test strip pH of 5.0 - 8.5 No Normal No Jun 10 Urine informati informati 2017 2:40 on in on in PM source source data data Protein NEG mg/dL No No Jun 10 [Mass/vol informati informati 2017 2:40 ume] in on in on in PM Urine by source source Automated data data test strip Specific 1.005 - No Normal No Jun 10 gravity 1.030 informati informati 2017 2:40 of Urine on in on in PM source source data data Urobili 0.2 NEG E.U./dL No No Jun 10 nogen informa informa 2016 [Presen tion in tion in 2:40 PM ce] in source source Urine data data by Test strip Lactate [Moles/volume] in Blood Observa Value Referen Units Interpr Notes Date tion ce etation Range Lactate 0.4 - 2.0 mmol/L Normal No Jul 08 [Moles/vo informati 2016 2:40 lume] in on in PM Blood source data CBC W Auto Differential panel in Blood Observa Value Referen Units Interpr Notes Date tion ce etation Range Basophils 0 - 0.2 K/MM3 Normal No Jul 08 inform2016 2:40 [#/volume on in PM ] in source Blood by data Automated count Basophils 0.1 - 2.0 % Normal No Jul 08 / informati 2016 2:40 leukocyte on in PM s in source Blood by data Automated count Eosinophi 0.0 - 0.4 K/mm3 Normal No Jul 08 ls informati 2016 2:40 [#/volume on in PM ] in source Blood by data Automated count Eosinophi 0.1 - % Normal No Jul 08 ls/100 12.0 informati 2016 2:40 leukocyte on in PM s in source Blood by data Automated count Granulocy 1.8 - 7.8 K/mm3 Normal No Jul 08 moses informati 2016 2:40 [#/volume on in PM ] in source Blood by data Automated count Granulocy 37.0 - % Normal No Jul 08 moses/100 80.0 informati 2016 2:40 leukocyte on in PM s in source Blood by data Automated count Hematocri 37.0 - % Low No Jul 08 t [Volume 47.0 ati 2016 2:40 on in PM Fraction] source of Blood data Hemoglobi 12.2 - g/dL Low No Jul 08 n 16.2 informati 2016 2:40 [Mass/vol on in PM ume] in source Blood data Lymphocyt 0.7 - 4.5 K/mm3 Normal No Jul 08 es informati 2016 2:40 [#/volume on in PM ] in source Unspecifi data ed specimen by Automated count Lymphocyt 10 - 50.0 % Normal No Jul 08 es informati 2016 2:40 [#/volume on in PM ] in source Unspecifi data ed specimen by Automated count Erythrocy 27 - 31.2 pg Normal No Jul 08 te mean informati 2016 2:40 corpuscul on in PM ar source hemoglobi data n [Entitic mass] Erythrocy 31.8 - g/dl Normal No Jul 08 te mean 35.4 informati 2017 2:40 corpuscul on in PM ar source hemoglobi data n concentra tion [Mass/vol ume] by Automated count Erythrocy 82.2 - fl Normal No Jun 10 te mean 97.8 informati 2016 2:40 corpuscul on in PM ar volume source [Entitic data volume] by Automated count Monocytes 0.1 - 1.0 K/mm3 Normal No Jun 10 informati 2016 2:40 [#/volume on in PM ] in source Blood by data Automated count Monocytes 1.7 - 9.3 % Normal No Jun 10 /100 informati 2017 2:40 leukocyte on in PM s in source Blood by data Automated count Platelet 7.4 - fl Normal No Jun 10 mean 10.4 informati 2017 2:40 volume on in PM [Entitic source volume] data in Blood by Automated count Platelets 142 - 424 K/mm3 Normal No Jun 10 informati 2016 2:40 [#/volume on in PM ] in source Blood data Erythrocy 4.2 - 5.4 M/mm3 Low No Jun 10 moses informati 2016 2:40 [#/volume on in PM ] in source Amniotic data fluid Erythrocy 11.5 - % Normal No Jun 10 te 17.5 informati 2016 2:40 distribut on in PM ion width source [Entitic data volume] by Automated count Leukocyte 4.8 - K/MM3 Normal No Jun 10 s 10.8 informati 2016 2:40 [#/volume on in PM ] in source Blood data Basic metabolic [...] Normal No Sep 20 moses/100 80.0 informati 2017 6:05 leukocyte on [...] % Normal No Sep 18 /100 informati 2016 6:01 leukocyte on in AM s in source Blood by data Automated count Platelet 7.4 - fl Normal No Sep 18 mean 10.4 informati 2016 6:01 volume on in AM [Entitic source volume] data in Blood by Automated count Platelets 142 - 424 K/mm3 Normal No Sep 18 informati 2016 6:01 [#/volume on in AM ] in source Blood data Erythrocy 4.2 - 5.4 M/mm3 Low No Sep 18 moses informati 2016 6:01 [#/volume on in AM ] in source Amniotic data fluid Erythrocy 11.5 - % Normal No Sep 18 te 17.5 informati 2016 6:01 distribut on in AM ion width source [Entitic data volume] by Automated count Leukocyte 4.8 - K/MM3 No No Sep 18 s 10.8 informati informati 2016 6:01 [#/volume on in on in AM ] in source source Blood data data Glucose [Mass/volume] in Capillary blood by Glucometer Observa Value Referen Units Interpr Notes Date tion ce etation Range Glucose 70 - 110 mg/dl Normal No Sep 17 [Mass/vol informati 2016 6:29 ume] in on in PM Capillary [...] 0.2 K/MM3 Normal No Sep 17 informati 2016 7:25 [#/volume on in AM [...] K/mm3 Normal No Sep 17 moses informati 2016 7:25 [#/volume on in AM [...] Low No Sep 17 n 16.2 informati 2016 7:25 [Mass/vol on in AM ume] in source Blood data Lymphocyt 0.7 - 4.5 K/mm3 Normal No Sep 17 es informati 2017 7:25 [#/volume on in AM ] in source Unspecifi data ed specimen by Automated count Lymphocyt 10 - 50.0 % Normal No Sep 17 es informati 2016 7:25 [#/volume on in AM ] in source Unspecifi data ed specimen by Automated count Erythrocy 27 - 31.2 pg Normal No Sep 17 te mean informati 2016 7:25 corpuscul on in AM ar source hemoglobi data n [Entitic mass] Erythrocy 31.8 - g/dl Normal No Sep 17 te mean 35.4 informati 2017 7:25 corpuscul on in AM ar source hemoglobi data n concentra tion [Mass/vol ume] by Automated count Erythrocy 82.2 - fl Normal No Sep 17 te mean 97.8 informati 2016 7:25 corpuscul on in AM ar volume source [Entitic data volume] by Automated count Monocytes 0.1 - 1.0 K/mm3 Normal No Sep 17 informati 2016 7:25 [#/volume on in AM [...] M/mm3 Low No Sep 17 moses informati 2016 7:25 [#/volume on in AM ] in source Amniotic data fluid Erythrocy 11.5 - % Normal No Sep 17 te 17.5 informati 2017 7:25 distribut on in AM ion width source [Entitic data volume] by Automated count Leukocyte 4.8 - K/MM3 Normal No Sep 17 s 10.8 informati 2017 7:25 [#/volume on in AM ] in source Blood data Basic metabolic panel in Blood Observa Value Referen Units Interpr Notes Date tion ce etation Range Urea 7 - 18 mg/dL Normal No Sep 17 nitrogen informati 2017 7:25 [Mass/vol on in AM ume] in source Serum or data Plasma Calcium 8.5 - mg/dL Normal No Sep 17 [Mass/vol 10.1 informati 2017 7:25 ume] in on in AM Serum [...] Normal No Sep 17 e renal informati 2017 7:25 clearance on in AM source predicted data by Cockcroft -Gault formula Estimated 59- ML/MIN No REFERENCE Sep 17 informati RANGE: 2017 7:25 glomerula on in >60 AM r source ML/MIN/1. filtratio data 73 SQUARE n rate METERSIf (GF this patient is -A merican, then multiply theresult by 1.210. Glucose 74 - 106 mg/dL Low No Sep 17 [Mass/vol informati 2017 7:25 ume] in on in AM Serum or source Plasma data Potassium 3.5 - 5.1 mmoL/L Low No Sep 17 informati 2016 7:25 [Moles/vo on in AM lume] in source Serum or data Plasma Sodium 136 - 145 mmoL/L Normal No Sep 17 [Moles/vo informati 2016 7:25 lume] in on in AM Serum [...] Normal No Sep 15 es informati 2016 2:00 [#/volume on in PM ] in source Unspecifi data ed specimen by Automated count Erythrocy 27 - 31.2 pg Normal No Sep 15 te mean informati 2017 2:00 corpuscul on in PM ar source hemoglobi data n [Entitic mass] Erythrocy 31.8 - g/dl Low No Sep 15 te mean 35.4 informati 2016 2:00 corpuscul on in PM ar source hemoglobi data n concentra tion [Mass/vol ume] by Automated count Erythrocy 82.2 - fL Normal No Sep 15 te mean 97.8 informati 2016 2:00 corpuscul on in PM ar volume source [Entitic data volume] by Automated count Monocytes 0.1 - 1.0 K/mm3 Normal No Sep 15 informati 2016 2:00 [#/volume on in PM ] in source Blood by data Automated count Monocytes 1.7 - 9.3 % Normal No Sep 15 /100 informati 2017 2:00 leukocyte on in PM s in source Blood by data Automated count Platelets 142 - 424 K/mm3 Normal No Sep 15 informati 2016 2:00 [#/volume on in PM [...] - 50 % Normal No Sep 15 informa 2017 tion in 2:00 PM source data Monocytes 2 - 9 % Normal No Sep 15 /100 informati 2017 2:00 leukocyte on in PM s in source Blood by data Automated count Platele NORMAL No No No No Sep 15 ts informa informa informa informa 2017 [Presen tion in tion in tion in tion in 2:00 PM ce] in source source source source Blood data data data data by Light microsc opy Neutrophi 42 - 76 % High No Sep 15 ls informati 2017 2:00 [#/volume on in PM [...] 5.1 mmoL/L Normal No Sep 15 informati 2017 6:05 [Moles/vo on in AM [...] No Sep 14 group informa informa informa 2017 [Type] tion in tion in tion in 6:25 PM in source source source Blood data data data Lactate [Moles/volume] in Serum or Plasma Observa Value Referen Units Interpr Notes Date tion ce etation Range LATE DUE TO PATIENT IN RADIOLOGY Lactate 0.4 - 2.0 MMOL/L High Sep 14 [Moles/vo 2016 3:38 lume] in CRITICAL PM Serum or RESULTS Plasma RESU LTS CALLED TO: [facility] 06/12/17 1608 Susan Barrios elevated Lactic Acid is suggestiv e of sepsis and shouldbe repeated within 6 hours of initial testing. CBC W Auto Differential panel in Blood Observa Value Referen Units Interpr Notes Date tion ce etation Range LATE DUE TO PATIENT IN RADIOLOGY Basophils 0 - 0.2 K/MM3 Normal No Sep 14 informati 2017 3:38 [#/volume on in PM ] in source Blood by data Automated count Basophils 0.1 - 2.0 % Normal No Sep 14 /100 informati 2017 3:38 leukocyte on in PM s in source Blood by data Automated count Eosinophi 0.0 - 0.4 K/mm3 Normal No Sep 14 ls informati 2017 3:38 [#/volume on in PM ] in source Blood by data Automated count Eosinophi 0.1 - % Normal No Sep 14 ls/100 12.0 informati 2017 3:38 leukocyte on in PM s in source Blood by data Automated count Granulocy 1.8 - 7.8 K/mm3 High No Sep 14 moses informati 2017 3:38 [#/volume on in PM ] in source Blood by data Automated count Granulocy 37.0 - % High No Sep 14 moses/100 80.0 informati 2016 3:38 leukocyte on in PM s in source Blood by data Automated count Hematocri 37.0 - % Normal No Sep 14 t [Volume 47.0 informati 2017 3:38 on in PM Fraction] source of Blood data Hemoglobi 12.2 - g/dL Normal No Sep 14 n 16.2 informati 2017 3:38 [Mass/vol on in PM ume] in source Blood data Lymphocyt 0.7 - 4.5 K/mm3 Normal No Sep 14 es informati 2017 3:38 [#/volume on in PM ] in source Unspecifi data ed specimen by Automated count Lymphocyt 10 - 50.0 % Low No Sep 14 es informati 2017 3:38 [#/volume on in PM ] in source Unspecifi data ed specimen by Automated count Erythrocy 27 - 31.2 pg Normal No Sep 14 te mean informati 2016 3:38 corpuscul on in PM ar source hemoglobi data n [Entitic mass] Erythrocy 31.8 - g/dl Normal No Sep 14 te mean 35.4 informati 2017 3:38 corpuscul on in PM [...] Normal No Sep 14 /100 informati 2017 3:38 leukocyte on in PM s in [...] 2+ NONE No No No Sep 14 informa informa informa 2017 sedimen tion in [...] No Sep 14 [Presen informa informa informa 2016 ce] in tion [...] Sep 14 in E informa informa informa 2016 [Presen tion in tion in tion in 1:30 PM ce] in source source source Urine data data data by Test strip Erythro NEGATIV NEG No No No Sep 14 cytes E informa informa informa 2016 [Presen tion [...] No No Sep 14 nogen informa informa 2016 [Presen tion in tion in 1:30 PM ce] in source source Urine data data by Test strip Lactate [Moles/volume] in Blood Observa Value Referen Units Interpr Notes Date tion ce etation Range Lactate 0.4 - 2.0 mmol/L High Sep 14 [Moles/vo 2017 lume] in CRITICAL 11:25 AM Blood RESULTS RESU LTS CALLED TO: [facility] 06/12/17 Monse2 Susan Barrios elevated Lactic Acid is suggestiv e of sepsis and shouldbe repeated within 6 hours of initial testing. Magnesium [Moles/volume] in Unspecified specimen Observa Value Referen Units Interpr Notes Date ti ce etation Range Magnesium 1.4 - 2.2 mg/dL Normal No Sep 14 informati 2016 9:30 [Moles/vo on in AM lume] in source Unspecifi data ed specimen CBC W Auto Differential panel in Blood Observa Value Referen Units Interpr Notes Date tion ce etation Range Basophils 0 - 0.2 K/MM3 Normal No Sep 14 informati 2016 9:30 [#/volume on in AM [...] Normal No Sep 14 ls/100 12.0 informati 2017 9:30 leukocyte on in AM s in source Blood by data Automated count Granulocy 1.8 - 7.8 K/mm3 High No Sep 14 moses informati 2016 9:30 [#/volume on in AM ] in source Blood by data Automated count Granulocy 37.0 - % High No Sep 14 moses/100 80.0 informati 2016 9:30 leukocyte on in AM s in source Blood by data Automated count Hematocri 37.0 - % High No Sep 14 t [Volume 47.0 informati 2016 9:30 on in AM Fraction] source of Blood data Hemoglobi 12.2 - g/dL No No Sep 14 n 16.2 informati informati 2017 9:30 [Mass/vol on in on in AM ume] in source source Blood data data Lymphocyt 0.7 - 4.5 K/mm3 Normal No Sep 14 es informati 2017 9:30 [#/volume on in AM ] in source Unspecifi data ed specimen by Automated count Lymphocyt 10 - 50.0 % Normal No Sep 14 es informati 2016 9:30 [#/volume on in AM ] in source Unspecifi data ed specimen by Automated count Erythrocy 27 - 31.2 pg High No Sep 14 te mean informati 2016 9:30 corpuscul on in AM ar source hemoglobi data n [Entitic mass] Erythrocy 31.8 - g/dl Normal No Sep 14 te mean 35.4 informati 2016 9:30 corpuscul on in AM ar source hemoglobi data n concentra tion [Mass/vol ume] by Automated count Erythrocy 82.2 - fl Normal No Sep 14 te mean 97.8 informati 2016 9:30 corpuscul on in AM ar volume source [Entitic data volume] by Automated count Monocytes 0.1 - 1.0 K/mm3 Normal No Sep 14 informati 2016 9:30 [#/volume on in AM ] in source Blood by data Automated count Monocytes 1.7 - 9.3 % Normal No Sep 14 /100 informati 2016 9:30 leukocyte on in AM [...] No Sep 14 te 17.5 informati 2017 9:30 distribut on in AM ion width source [Entitic data volume] by Automated count Leukocyte 4.8 - K/MM3 High No Sep 14 s 10.8 informati 2017 9:30 [#/volume on in AM [...] - 50 % Normal No Sep 14 inform 2017 tion in 9:30 AM source data Metamyelo 0 - 1 % Normal No Sep 14 cytes/100 informati 2017 9:30 on in AM leukocyte source s in data Blood by Manual count Monocytes 2 - 9 % Normal No Sep 14 /100 informati 2016 9:30 leukocyte on in AM [...] % High No Sep 14 ls informati 2016 9:30 [#/volume on in AM ] in source Blood by data Automated count Cells No #CELLS No No Sep 14 Counted informati informati informati 2016 9:30 Total [#] on in on in [...] gm/dL High No Sep 14 [Mass/vol informati 2016 9:30 ume] in on in AM Serum source data Glucose 74 - 106 mg/dL High No Sep 14 [Mass/vol informati 2016 9:30 ume] in on in AM Serum or source Plasma data Potassium 3.5 - 5.1 mmoL/L Normal No Sep 14 informati 2016 9:30 [Moles/vo on in AM lume] in source Serum or data Plasma Sodium 136 - 145 mmoL/L Normal No Sep 14 [Moles/vo informati 2016 9:30 lume] in on in AM Serum or source Plasma data Aspartate 15 - 37 U/L Normal No Sep 14 informati 2016 9:30 aminotran on in AM sferase source [Enzymati data c activity/ volume] in Serum or Plasma Alanine 12 - 78 U/L Normal No Sep 14 aminotran informati 2016 9:30 sferase on in AM [Enzymati source c data activity/ volume] in Serum or Plasma Protein 6.4 - 8.2 gm/dL High No Sep 14 [Mass/vol informati 2016 9:30 ume] in on in AM Serum or source Plasma data Lipase [Enzymatic activity/volume] in Serum or Plasma Observa Value Referen Units Interpr Notes Date tion ce etation Range Lipase 73 - 393 U/L Normal No Sep 14 [Enzymati informati 2016 9:30 c on in AM activity/ source volume] data in Serum or Plasma
--- OUTSIDE RECORDS SUMMARY | 2017-08-16 13:39 | External Medical Summary Rpt ---
[...] 37.0 - % Normal No Sep 18 omses/100 80.0 informati 2017 6:01 leukocyte on in [...] - 5.4 M/mm3 Low No Sep 16 omses informati 2017 6:01 [#/volume on in AM [...] or RESULTS Plasma RESU LTS CALLED TO: [facility] 06/12/17 1608 Susan Barrios elevated Lactic Acid [...]
[2017-08-16 14:00] LABS: URINE BILIRUBIN - DIPSTICK NEGATIVE (NEG); URINE BLOOD NEGATIVE (NEG)
[2017-08-16] MEDS ORDERED: TIZANIDINE HYDRO2 M1 PO (14:14)
[2017-08-16 14:41] VITALS: BP 122/62
--- NOTE | 2017-08-17 22:19 | RADIOLOGY REPORT PS360 ---
LUMBAR SPINE 5 VIEWS Ordering Physician: Mata Steele MD Patient Age: 71 years: Female HISTORY: back pain yesterday with right sacral pain today with left-sided back pain that radiates to leg. TECHNIQUE: 5 view lumbar spine series COMPARISON :Previous CT abdomen pelvis reconstruction May 2017. FINDINGS The vertebral bodies are intact. No compression fracture. At lumbar spine. Question slight decreased height at T9 but most likely this is projectional.. It appeared Satisfactory on the May 2017 study. If pain at lower T-spine this may warrant follow-up. The disc spaces are fairly well-maintained throughout. Mild degenerative facet changes The focal sclerotic area at the left pelvis above the left acetabulum is stable since May. IMPRESSION: . No acute findings lumbar spine. lumbar spine intact. Mild levoscoliosis upper lumbar spine likely exaggerated by positioning or splinting.. . Mild demineralization. The nonspecific sclerotic focus superior to superior to the left acetabulum is unchanged since May, 2017 CT..
== END 2017-08-16 14:42 | disposition home or self-care (01) ==
LOC: ER 12:52
PROVIDERS: Emergency Medicine
DX: M54.5 Low back pain (principal); I10 Essential (primary) hypertension; E78.5 Hyperlipidemia, unspecified; E03.9 Hypothyroidism, unspecified; F41.8 Other specified anxiety disorders